=== PATIENT | female | born 1950 | race Caucasian/White ===

== ENCOUNTER → 2016-03-27 | Outpatient (CLI) | payer BC ==
[~2016-03-27] MED LIST: AMLO-114 PO; AMOX875T PO; ATRIN INH; BENZ100C7 PO; CHOL1000 PO; CIPR-255 PO; GLC/500 PO; Levalbuterol INH; MULT-506 PO; NRV5 PO; PANT40TA PO; POTA1080 PO; PRED10TA PO; PRT40 PO
--- NOTE | 2016-03-28 05:34 | PAP/PSG TECHNICIAN REPORT ---
[facility] Cissp Polysomnogram Report Study name: None Report date: 03/28/2016 Study date: 03/27/2016 Referring Physician: DR. JERRY Name: DONNA DUMONT Interpreting Physician: Roberto Her M.D. Date of : 1950 Cissp: MIRELLA Kwon. Sex: Female Age: 65 StudyType: PSG PAP Weight: 256 lbs Height: 65 years, Height 5' 4" Neck Circum:15.5inches BMI: 43.94 Medications: Fluticasone, Amlodipine Besylate 5mg, Atrovent HFA, Benzonatate 100mg Patient History Study started on room air with 4cwp cpap in room #6. 65 yr old female here tonight for a new titration study. She had a diagnostic psg done here on 01/31/16 that had an AHI of7.4, RDI of 7.7.Her ESS=11/24. Neck circ=15.5inches. Parameters Monitored NPSG: E1-M2, E2-M1, Fp1-M2, Fp2-M1, F3-M2, F4-M2, F4-M1, C3-M2, C4-M2, C4-M1, O1-M2, O2-M2, O2-M1, T3-M2, T4-M1, P3-M2, P4-M1, CHIN1, CHIN2, HR, EKG, Legs, PFLOW, SNOR, FLOW, CFLOW, Tidal Volume, THOR, ABDO, SpO2, PLTH, CPRESS, ETCO2 Wave, ETCO2, pH Sleep Architecture Sleep Stages Time at Lights Off 9:58:39 PM STAGES Time (min.) TST (%) Time at Lights On 5:29:39 AM Wake 95.0 -- Total Recording Time (TRT) 451.00 min. N1 14.5 4 Total Sleep Period (TSP) 407.0 min. N2 187.5 53 Total Sleep Time (TST) 356.0min. N3 84.5 24 Awake Time 95.0 min. REM 69.5 20 Wake after Sleep Onset 51.0 min. Sleep Efficiency (SE) 79 % Sleep Onset Latency (BONITA) 44.0 min. Number of Stage 1 Shifts None Awakenings 16 Stage Changes 63 Number of REM periods 3 REM 69.5 20 REM Latency 109.0 min. NREM 286.5 80 Body Position Analysis Supine Right Left Side Prone Vertical Total Sleep Time (min.) 238.2 46.0 138.8 184.76 0.0 0.0 Total Sleep Time (%) 48% 13% 39% 52 0% N/A% Total Sleep Time REM (min.) 26.0 0.0 43.5 None 0.0 0.0 Total Sleep Time NREM (min.) 145.2 46.0 95.3 None 0.0 0.0 Intermittent Wake (min.) 67.0 7.2 20.8 None 0.0 0.0 Total Sleep Period (%) 50% None None None None None Arousals Myoclonus (PLM) * Events Count Index Events Count Index Spontaneous 14 2 Events Awake (PLMW) 112 70.7 Respiratory 1 0.2 Events Asleep w/ Arousal (PLMA) 18 3.0 PLM 17 3 Events Asleep w/o Arousal (PLMS) 114 19.2 Snoring 2 0 Total Asleep 132 22.2 Total 34 6 Total 244 32 Respiratory Analysis * CA OA MA CH H RERA Total Count 0 0 0 0 2 0 2 Index 0.0 0.0 0.0 0 0.3 0 0.3 Mean Duration 0.0 0.0 0.0 0.00 32.1 0.0 32.1 Longest Duration 0.0 0.0 0.0 0.00 0.0 0.0 49.8 Respiratory Event Summary Total Supine ~Supine Right Left Prone REM NREM Apneas Count 0 0 0 0 0 N/A 0 0 Index 0.0 0 0 0.0 0.0 N/A 0 0 Hypopneas (4% Desat) Count 2 0 2 0 2 N/A 1 1 Index 0.3 0.0 1 0.0 0.9 N/A 0.9 0.2 Apneas & All Hypopneas Count 2 0 2 0 2 N/A 1 1 Index 0.3 0 1 0 1 N/A 0.9 0.2 Respiratory Events (Metal Riveter+All Hyp+RERA) Count 2 0 2 0 2 N/A 1 1 Index 0.3 0 1 0.0 0.9 N/A 0.9 0.2 Respiratory Related Arousal Count 1 0 1 0 1 N/A 0 1 Index 0.2 0 0 0 0 N/A 0 0 Snoring Analysis Supine Right Left Prone REM NREM Total Snore duration 0.4 min Snores count 3 1 2 N/A 0 6 6 Snore mean duration 4.5 Sec Snores index 1 1 1 N/A 0.0 1.3 1.0 TST with snoring (%) 0.1% Desaturation Event Summary: Minimum %SpO2 Event Count Mean/Min/Max Duration(sec.) Desaturation Index % Time In Bed > 90 5 24.5 / 7.5 / 41.3 1.4 47.1 86 - 90 3 17.8 / 6.3 / 32.0 0.8 52.8 81 - 85 0 N/A 0.0 0.1 76 - 80 0 N/A 0.0 0.0 71 - 75 0 N/A 0.0 0.0 66 - 70 0 N/A 0.0 0.0 61 - 65 0 N/A 0.0 0.0 56 - 60 0 N/A 0.0 0.0 51 - 55 0 N/A 0.0 0.0 < 50 0 N/A 0.0 0.0 Total REM NREM Awake <50% 0.0 min. 0.0 min. 0.0 min. 0.0 min. 51 - 60% 0.0 min. 0.0 min. 0.0 min. 0.0 min. 61 - 70% 0.0 min. 0.0 min. 0.0 min. 0.0 min. 71 - 80% 0.0 min. 0.0 min. 0.0 min. 0.0 min. 81 - 90% 237.4 min. 47.8 min. 181.2 min. 8.3 min. 91 - 100% 211.3 min. 21.7 min. 105.0 min. 84.6 min. Average 91 90 90 93 Minimum SpO2 85 85 85 85 Desaturation Event Index 0.9 0.9 0.2 3.2 # Desat. Events below 89% 3 1 0 2 Time(%) with Saturation below 89% 6.7 1.3 5.3 0.1 Time(min.) with Saturation below 89% 30.1 5.8 23.9 0.5 Time (mins) REM (mins) NREM (mins) % of TST SpO2 Below 90% 2 1 N1 36.3 SpO2 Below 88% 1 0 0 1 Heart Rate Analysis Min (bpm) Max (bpm) Average (bpm) Awake 39 214 70 NREM 53 96 65 REM 62 83 70 Overall 53 96 66 Supplemental O2 Values Minimum O2 level: None Value Start Time End Time Cissp Comments Mrs. Dumont slept in the right, left and supine positions. No cardiac arrhythmia noted. Some limb movements were noted. No bruxism noted. CPAP was initiated at +4 CMH2O which nearly eliminated all respiratory events and snoring. At 4:30 am she had been on Cpap of 4cwp for a total of 389minutes and her O2 saturations were under 89% for a total of 29.6minutes, therefore 1LPM of oxygen was added. An extra-small Quattro Air full face mask by [employer] was used during titration. She did not use the restroom during the night. She stated that she slept well. The final report will be interpreted and signed by a sleep physician. The completed physician report will then be placed in the patient medical record. Therapy Event: Therapy (cm H20) 4 Total Time at Pressure (min.) 451.0 TST at Pressure (min.) 356.0 # Periods 1 Sleep Onset (min.) 44.0 REM Onset (min.) 153.0 Sleep Efficiency % 78 Wakefulness (%) 21.1 Wakefulness (min.) 95.0 NREM 1 (%) 3.2 NREM 1 (min.) 14.5 NREM 2 (%) 41.6 NREM 2 (min.) 187.5 NREM 3 (%) 18.7 NREM 3 (min.) 84.5 REM (%) 15.4 REM (min.) 69.5 # Arousals 34 Arousal Index 5.7 # Snore 6 Snore Index 1.0 AHI 0.3 AHI Supine 0.0 AHI Non-Supine 0.6 NREM AHI 0.2 REM AHI 0.9 RDI 0.3 # Obstructive 0 # Central Ap 0 # Mixed 0 # Hypopneas 2 RERAS 0 Total Respiratory Events 2 Time Below SpO2 89.00% (min.) 29.6 Mean NREM SpO2 (%) 90 Mean REM SpO2 (%) 90 Mean Sleep SpO2 (%) 90 Min NREM SpO2 (%) 85 Min REM SpO2 (%) 85 Position Supine (min.) 171.2 Position Non-supine (min.) 184.8 LM Index Sleep 22.2 LM Index NREM 22.6 LM Index REM 20.7 Mean Heart Rate (bpm) 66 Min Heart Rate (bpm) 53
--- NOTE | 2016-03-29 12:05 | POLYSOMNOGRAPH REPORT ---
CLINICAL DATA: 65-year-old female with BMI of 43.[address] Muñoz and Dr. Pinto. The patient had a diagnostic sleep study done on 01/31/2016 which showed mild sleep apnea with an AHI of 7.4 and an RDI of 7.7. SLEEP ARCHITECTURE: Total sleep period was 407 minutes. Total sleep time was 356 minutes divided between 286.5 minutes of non-REM sleep and 69.5 minutes of REM sleep. Sleep onset latency was 44 minutes. REM latency was 109 minutes. Sleep efficiency was 79%. Awake after sleep onset was 51 minutes. Sleep consisted of stage N1 4%, N2 52%, N3 24%, and REM 20%. AROUSAL DATA: 34 arousals were recorded for an index of 6 per hour. PLM DATA: 132 limb movements during sleep were noted for an index of 22.2 per hour with arousal index of 3 per hour. RESPIRATORY DATA: The AHI was 0.3. There were 2 hypopneic episodes. The mean duration of hypopnea was 32.1 seconds. OXIMETRY DATA: Nocturnal hypoxemia was seen. Oxygen talat was 85% during REM. The mean saturation was 91%. Time below 88% was 29.6 minutes. EKG: Heart rates ranged from 52-96 beats per minute. No arrhythmias were noted. DENTAL DIRECTOR'S COMMENTS AND TREATMENT SUMMARY: The patient slept in the right, left, and supine positions. CPAP was started at 4 cm of water pressure, which eliminated almost all of her respiratory events. At 4:30 a.m., she had been on CPAP 4 cm of water pressure and Oxygen Sats were under 89% for total of 29.6 minutes. Therefore, 1 liter per minute of oxygen was added at that time. She used an extra small Quattro Air full facemask by [employer]. IMPRESSION: 1. Mild sleep corrected with CPAP at 5 cm of water pressure, extra small Quattro Air full facemask by [employer]. 2. Persistent oxygen desaturation in spite of adequate treatment with CPAP requiring oxygen 1 liter per minute. RECOMMENDATIONS: The patient should be started on CPAP 5 cm water pressure using the above noted face mask and oxygen at 1 liter per minute. Follow within 90 days to document efficacy and compliance is recommended. [facility]
== END | disposition home or self-care (01) ==
LOC: C.NEUR 21:00
PROVIDERS: ATTEND Internal Medicine Pulmonary Disease
DX: G47.30 Sleep apnea, unspecified (principal)

== ENCOUNTER 2016-06-11 16:30 | Emergency (ER) | payer BC, OTHER ==
[~2016-06-11] VITALS: Ht 162.6 cm; Wt 89.8 kg
[~2016-06-11 16:30] MED LIST changes: -AMLO-114 PO; -CHOL1000 PO; -CIPR-255 PO; -PANT40TA PO
[2016-06-11 16:33] VITALS: Ht 162.6 cm; Wt 89.8 kg
[2016-06-11] MEDS ORDERED: ONDANSETRON INJ 2 MG/ML 2 ML VIAL IV STA (16:47)
[2016-06-11] MEDS ORDERED: MoRPHine SULFATE 4 MG/ML 1 ML CARP\\VIAL IV STA (16:47)
[2016-06-11] MEDS ORDERED: AMLO-114 PO (16:55)
[2016-06-11] MEDS ORDERED: PANT40TA PO (16:59)
[2016-06-11] MEDS ORDERED: GLC/500 PO (17:04)
[2016-06-11] MEDS ORDERED: CHOL1000 PO (17:05)
[2016-06-11 17:09] LABS: BASO % 0.4 %; BASO ABS # 0.03 K/uL (0-0.2); COMPLETE YES; HEMATOCRIT 43.2 % (37-47); IG% 0.3 %; LYMPH ABS # 1.01 K/uL (1.2-3.4); MEAN CELL VOLUME 88.5 fL (80-100); MEAN CORPUSCULAR HEMOGLOBIN 30.7 pg (25-34); MEAN CORPUSCULAR HGB CONC 34.7 g/dl (32-36); MONO % 5.4 %; NEUT % 78.9 %; PLATELET COUNT 285 K/uL (130-400); RED BLOOD COUNT 4.88 M/uL (4.2-5.4); WHITE BLOOD COUNT 7.19 K/uL (4.8-10.8)
[2016-06-11 17:25] LABS: URINE APPEARANCE CLOUDY (CLEAR); URINE COLOR DK YELLOW; URINE EPITHELIAL CELL AUTO >30 /lpf (0-5); URINE NITRITE NEG (NEG); UROBILINOGEN NEG (NEG)
[2016-06-11 17:30] LABS: ALT/SGPT 28 U/L (12-78); BLOOD UREA NITROGEN 17 mg/dl (7-18); BUN/CREATININE RATIO 23.2 (10-20); CALCIUM 9.7 mg/dl (8.5-10.1); CARBON DIOXIDE 26 mmol/L (21-32); CHLORIDE 104 mmol/L (98-107); CREATININE 0.72 mg/dl (0.60-1.20); GLUCOSE 110 mg/dl (70-99); SODIUM 139 mmol/L (136-145)
[2016-06-11 17:32] LABS: ALKALINE PHOSPHATASE 142 U/L (45-117)
[2016-06-11 17:55] LABS: MANUAL MICROSCOPIC REQUIRED? NO; REVIEW REQ? YES; URINE BILIRUBIN NEG (NEG)
--- NOTE | 2016-06-11 18:32 | DIAGNOSTIC IMAGING REPORT ---
BILIARY ULTRASOUND CLINICAL HISTORY: Right upper quadrant abdominal pain COMPARISON STUDY: CT scan dated 12/19/2015 FINDINGS: The pancreas appears sonographically normal. There are multiple gallstones. There is no gallbladder wall thickening and no evidence of pericholecystic fluid. There is no ductal dilatation. The common bile duct measures 4 mm. There is no right-sided hydronephrosis. No hepatic masses are visualized. There is increased hepatic echogenicity consistent with hepatic steatosis IMPRESSION: 1. Cholelithiasis. No evidence of ductal dilatation. 2. Hepatic steatosis 3. Normal pancreas 4. No evidence of right sided hydronephrosis Electronically signed by: Naveen Christian M.D. 06/11/2016 6:30 PM Dictated Date/Time: 06/11/2016 6:28 PM
[2016-06-11] MEDS ORDERED: CIPROFLOXACIN 400MG / 200ML D5W IV STA (18:35)
[2016-06-11 18:59] VITALS: TEMP 36.4
[2016-06-11] MEDS ORDERED: CIPR-255 PO (20:54)
[2016-06-11 20:56] LABS: POTASSIUM 4.1 mmol/L (3.5-5.1)
[2016-06-11 21:13] VITALS: BP 145/69; PULSE 78; O2SAT 96
--- NOTE | 2016-06-11 22:59 | EMERGENCY ROOM VISIT NOTE ---
History Report prepared by Jose Eduardo: Bel Kelly Under the Supervision of: Dr. Juan Pablo Montes M.D. First contact with patient: 16:35 Chief Complaint: KIDNEY STONE Stated Complaint: RIGHT SIDE KIDNEY PAIN History of Present Illness The patient is a 65 year old female who presents to the Emergency Room with complaints of worsening RUQ abdominal pain since this morning. The patient states that her pain has gradually worsened throughout the day. She notes decreased urinary output and burning pain with urination, as well as some diarrhea. She rates her current pain as a 6/10 in severity. The patient has a history of kidney stones and states that these symptoms feel similar to symptoms she experienced with her previous stones. She notes that she still has her gallbladder and has a history of gallstones. The patient denies hematuria, fever, and vomiting. Source of History: patient Onset: this morning Position: abdomen (RUQ) Symptom Intensity: 6/10 Timing: worsening Modifying Factors (Worsening): other (time) Associated Symptoms: + diarrhea, + urinary symptoms (decreased output and dysuria), No fevers, No vomiting Note: Pt denies hematuria. Review of Systems See HPI for pertinent positives & negatives. A total of 10 systems reviewed and were otherwise negative. Past Medical & Surgical Medical Problems: (1) Kidney stones (2) Respiratory failure (3) Sprain of knee Family History Diabetes mellitus Social History Smoking Status: Never Smoker Drug Use: none Marital Status: Housing Status: lives with family Occupation Status: employed Current/Historical Medications Scheduled Amlodipine (Norvasc), 10 MG PO DAILY Cholecalciferol (Vitamin D3), 1,000 UNITS PO DAILY Ciprofloxacin Hcl (Cipro), 500 MG PO BID Metformin Hcl (Glucophage), 500 MG PO BID Multivitamin (Multivitamin), 1 TAB PO QAM Pantoprazole (Protonix), 40 MG PO BID Potassium Citrate (Alkalinizer (Potassium Citrate ER), 2 TABS PO DAILY Allergies Coded Allergies: Adhesives (Verified Allergy, Unknown, bandaids-redness rash, 06/11/16) Physical Exam Vital Signs Date Time Temp Pulse Resp B/P Pulse Ox O2 Delivery O2 Flow Rate FiO2 06/11/16 21:13 78 18 145/69 96 Room Air 06/11/16 18:59 36.4 65 12 145/59 98 Room Air 06/11/16 16:33 36.4 71 20 148/78 98 Room Air Physical Exam Constitutional: Vital signs reviewed. Eyes: Pupils are equal round reactive to light. Conjunctiva are noninjected. ENT: Pharynx is clear without erythema or exudate. Mucous membranes are moist. Neck supple without meningeal signs. Respiratory: Clear to auscultation bilaterally. Breath sounds are equal bilaterally. Cardiovascular: Regular rate and rhythm. No rubs or gallops. GI: Soft, nondistended. RUQ tenderness, no Eng's sign. Bowel sounds are present. Musculoskeletal: No peripheral edema. No lower extremity tenderness. No CVA tenderness. Integumentary: No cyanosis. Neurological: The patient is awake and alert. No focal deficits. Psychiatric: Normal affect. Medical Decision & Procedures ER Provider Diagnostic Interpretation: Radiology results as stated below per my review and the radiologist's interpretation: BILIARY ULTRASOUND CLINICAL HISTORY: Right upper quadrant abdominal pain COMPARISON STUDY: CT scan dated 12/19/2015 FINDINGS: The pancreas appears sonographically normal. There are multiple gallstones. There is no gallbladder wall thickening and no evidence of pericholecystic fluid. There is no ductal dilatation. The common bile duct measures 4 mm. There is no right-sided hydronephrosis. No hepatic masses are visualized. There is increased hepatic echogenicity consistent with hepatic steatosis IMPRESSION: 1. Cholelithiasis. No evidence of ductal dilatation. 2. Hepatic steatosis 3. Normal pancreas 4. No evidence of right sided hydronephrosis Electronically signed by: Naveen Christian M.D. 06/11/2016 6:30 PM Dictated Date/Time: 06/11/2016 6:28 PM Laboratory Results 06/11/16 17:00 Red Blood Count 4.88, Mean Corpuscular Volume 88.5, Mean Corpuscular Hemoglobin 30.7, Mean Corpuscular Hemoglobin Concent 34.7, Mean Platelet Volume 10.0, Neutrophils (%) (Auto) 78.9, Lymphocytes (%) (Auto) 14.0, Monocytes (%) (Auto) 5.4, Eosinophils (%) (Auto) 1.0, Basophils (%) (Auto) 0.4, Neutrophils # (Auto) 5.67, Lymphocytes # (Auto) 1.01, Monocytes # (Auto) 0.39, Eosinophils # (Auto) 0.07, Basophils # (Auto) 0.03 06/11/16 17:00 06/11/16 18:53 Test 06/11/16 15:00 06/11/16 17:00 06/11/16 18:53 Urine Color DK YELLOW Urine Appearance CLOUDY (CLEAR) Urine pH 5.0 (4.5-7.5) Urine Specific [place] 1.020 (1.000-1.030) Urine Protein NEG (NEG) Urine Glucose (UA) NEG (NEG) Urine Ketones 1+ (NEG) Urine Occult Blood 3+ (NEG) Urine Nitrite NEG (NEG) Urine Bilirubin NEG (NEG) Urine Urobilinogen NEG (NEG) Urine Leukocyte Esterase MODERATE (NEG) Urine WBC (Auto) >30 /hpf (0-5) Urine RBC (Auto) >30 /hpf (0-4) Urine Hyaline Casts (Auto) 1-5 /lpf (0-5) Urine Epithelial Cells (Auto) >30 /lpf (0-5) Urine Bacteria (Auto) NEG (NEG) Urine Crystals CALCIUM OXALATE (NONE Urine Pathogenic Casts /lpf (0) Urine Yeast (Auto) PRESENT (NONE PRSENT) White Blood Count 7.19 K/uL (4.8-10.8) Red Blood Count 4.88 M/uL (4.2-5.4) Hemoglobin 15.0 g/dL (12.0-16.0) Hematocrit 43.2 % (37-47) Mean Corpuscular Volume 88.5 fL (80-100) Mean Corpuscular Hemoglobin 30.7 pg (25-34) Mean Corpuscular Hemoglobin Concent 34.7 g/dl (32-36) Platelet Count 285 K/uL (130-400) Mean Platelet Volume 10.0 fL (7.4-10.4) Neutrophils (%) (Auto) 78.9 % Lymphocytes (%) (Auto) 14.0 % Monocytes (%) (Auto) 5.4 % Eosinophils (%) (Auto) 1.0 % Basophils (%) (Auto) 0.4 % Neutrophils # (Auto) 5.67 K/uL (1.4-6.5) Lymphocytes # (Auto) 1.01 K/uL (1.2-3.4) Monocytes # (Auto) 0.39 K/uL (0.11-0.59) Eosinophils # (Auto) 0.07 K/uL (0-0.5) Basophils # (Auto) 0.03 K/uL (0-0.2) RDW Standard Deviation 40.2 fL (36.4-46.3) RDW Coefficient of Variation 12.6 % (11.5-14.5) Immature Granulocyte % (Auto) 0.3 % Immature Granulocyte # (Auto) 0.02 K/uL (0.00-0.02) Anion Gap 9.0 mmol/L (3-11) Est Creatinine Clear Calc Drug Dose 85.7 ml/min Estimated GFR () 102.6 Estimated GFR (Non- 88.5 BUN/Creatinine Ratio 23.2 (10-20) Calcium Level 9.7 mg/dl (8.5-10.1) Total Bilirubin 1.4 mg/dl (0.2-1) Alanine Aminotransferase (ALT/SGPT) 28 U/L (12-78) Alkaline Phosphatase 142 U/L (45-117) Total Protein 8.3 gm/dl (6.4-8.2) Albumin 4.3 gm/dl (3.4-5.0) Lipase 148 U/L (73-393) Direct Bilirubin 0.3 mg/dl (0-0.2) Aspartate Amino Transf (AST/SGOT) 25 U/L (15-37) Laboratory results as reviewed by me. Medications Administered Medications (Trade) Dose Ordered Sig/[place] Route Start Time Stop Time Status Last Admin Dose Admin Ciprofloxacin/ Dextrose (Cipro / D5w) 400 mg NOW STAT IV 06/11/16 18:35 06/11/16 18:36 DC 06/11/16 19:07 400 MG ECG Indication: abdominal pain Rate (beats per minute): 58 Rhythm: sinus bradycardia Findings: no acute ischemic change, no ectopy ED Course 163: The patient was evaluated in room C8. A complete history and physical exam was performed. 164: Zofran 4 mg IV - pt refused, Morphine sulfate 4 mg IV - pt refused. 1832: I checked on the patient, but she was still at ultrasound 183: Cipro/D5w 400 mg IV 1902: I updated the patient and she is feeling much better. I discussed her test results with her. 2049: The patient has no complaints at this time. She has finished receiving her IV antibiotics. She declined pain medication for home. We are just waiting for redraw labs. 2100: I reassessed the patient at this time. She is feeling better and resting comfortably. I discussed the results and treatment plan with the patient. I answered all pertaining questions that she had. She expressed understanding and verbalized agreement. The patient will be discharged home. Medical Decision This is a 65-year-old female who presents with right upper quadrant abdominal pain. Differential diagnosis includes cholecystitis, biliary colic, renal colic , pancreatitis, inferior wall NC, pyelonephritis, UTI. I did perform a limited focused review of portions of the patient's old chart on the electronic medical record. The patient had a CT in November of the abdomen/pelvis which showed a 5mm UVJ stone on the left side and bilateral kidney stones. I did evaluate the patient as noted above. The patient is presenting with right upper quadrant abdominal pain. She does a history of kidney stones and gallstones. She is tender in the right upper quadrant but has no Eng sign. IV access was established. I did treat the patient with IV morphine and Zofran. I did order and personally review the patient's UA as described above. She does have signs of infection. There are epithelial cells and yeast which suggests some degree of contamination. A urine culture was sent. I did order and review the patient's blood work as noted in the electronic medical record. Her white blood cell count is not elevated. I did order an ultrasound of the right upper quadrant. I did review the images myself as well as the radiology report as described above. There is no evidence of cholecystitis. She has no hydronephrosis to suggest an obstructing ureteral stone. I did treat her with Cipro IV. I did reassess the patient. She is feeling much better at this time. I did discuss the test results with her in detail. She was advised follow closely with her doctor within 48 hours. She was discharged with a prescription for Cipro. Impression Primary Impression: Pyelonephritis Additional Impression: Cholelithiasis Scribe Attestation The scribe's documentation has been prepared under my direct and personally reviewed by me in its entirety. I confirm that the note above accurately reflects all work, treatment, procedures, and medical decision making performed by me. Departure Information Dispostion Home / Self-Care Prescriptions Ciprofloxacin Hcl (CIPRO) 500 Mg Tab 500 MG PO BID, #20 TAB Prov: Juan Pablo Montes M.D. 06/11/16 Referrals Villa Pinto M.D. (PCP) Forms HOME CARE DOCUMENTATION FORM, IMPORTANT VISIT INFORMATION Patient Instructions My [facility], Pyelonephritis Dc Additional Instructions You have been examined and treated today on an emergency basis only. This is not a substitute for, or an effort to provide, complete comprehensive medical care. It is impossible to recognize and treat all injuries or illnesses in a single emergency department visit. It is therefore important that you follow up closely with your physician within 48 hours. Call as soon as possible for an appointment. Return for worsening symptoms or if you develop fever, vomiting, or any other concerning symptoms. Problem Qualifiers Additional Impression: Cholelithiasis Cholelithiasis location: gallbladder Cholecystitis presence: without cholecystitis Biliary obstruction: without biliary obstruction Qualified Codes: K80.20 - Calculus of gallbladder without cholecystitis without obstruction
== END 2016-06-11 21:14 | disposition home or self-care (01) ==
LOC: C.EDB 16:32 → C.EDC 21:14
DX: N12 Tubulo-interstitial nephritis, not specified as acute or chronic (principal); K80.20 Calculus of gallbladder without cholecystitis without obstruction; Z87.442 Personal history of urinary calculi; Z79.4 Long term (current) use of insulin; Z79.899 Other long term (current) drug therapy; Z91.09 Other allergy status, other than to drugs and biological substances; Z83.3 Family history of diabetes mellitus

== ENCOUNTER → 2016-08-06 | Outpatient (CLI) | payer BC ==
[~2016-08-06] MED LIST changes: +AMLO-114 PO; -AMOX875T PO; -ATRIN INH; -BENZ100C7 PO; +CHOL1000 PO; +CIPR-255 PO; -Levalbuterol INH; -NRV5 PO; +PANT40TA PO; -PRED10TA PO; -PRT40 PO
--- NOTE | 2016-08-06 10:57 | DIAGNOSTIC IMAGING REPORT ---
KUB HISTORY: N20.0 [id number] COMPARISON: IVP 02/06/2016. FINDINGS: The bowel gas pattern is unremarkable. There are no dilated loops of small bowel to suggest an obstruction. There is small cluster of stones within the lower pole of the left kidney. No right renal calculi. No ureteral calculi. No pneumoperitoneum or pneumatosis. IMPRESSION: Left-sided nephrolithiasis. Electronically signed by: Hemant Davis M.D. 08/06/2016 10:56 AM Dictated Date/Time: 08/06/2016 10:55 AM
== END | disposition home or self-care (01) ==
LOC: C.RAD 10:35
PROVIDERS: ATTEND Urology
DX: N20.0 Calculus of kidney (principal)

== ENCOUNTER → 2017-02-01 | Outpatient (CLI) | payer BC ==
--- NOTE | 2017-02-04 07:49 | MAMMOGRAPHY REPORT ---
BILATERAL DIGITAL SCREENING MAMMOGRAM TOMOSYNTHESIS WITH CAD: 02/01/2017 CLINICAL HISTORY: Asymptomatic. Personal history of breast cancer. TECHNIQUE: Breast tomosynthesis in addition to standard 2D mammography was performed. Current study was also evaluated with a Computer Aided Detection (CAD) system. COMPARISON: Comparison is made to exams dated: 02/23/2016 mammogram, 02/23/2016 stereotactic biopsy, 01/31/2016 mammogram, 02/09/2015 ultrasound, 01/27/2015 mammogram, and 10/06/2012 mammogram - [facility]. BREAST COMPOSITION: The tissue of both breasts is heterogeneously dense, which may obscure small mas ses. FINDINGS: No suspicious masses, calcifications, or areas of architectural distortion are noted in ei ther breast. There has been no significant interval change compared to prior exams. There are stable post surgical changes in the right anterior breast. Biopsy marker clips are again noted within the left breast. Bilateral benign-appearing calcifications are not significantly changed, including a sm all cluster of calcifications within the left lower outer quadrant middle depth which is stable charlotte red to the January 2016 and January 2015 exams. IMPRESSION: ACR BI-RADS CATEGORY 2: BENIGN There is no mammographic evidence of malignancy. A 1 year screening mammogram is recommended. The pa tient will receive written notification of the results. Approximately 10% of breast cancers are not detected with mammography. A negative mammographic report should not delay biopsy if a clinically suggestive mass is present. Jackelyn Lance M.D. ah/:02/01/2017 14:48:52 Grinder Operator Surface Tool: Shayy HASSAN(Davy)([place]), [facility] letter sent: Normal 1/2 BI-RADS Code: ACR BI-RADS Category 2: Benign
== END | disposition home or self-care (01) ==
LOC: C.MAMM 08:38
PROVIDERS: ATTEND Internal Medicine
DX: Z12.31 Encounter for screening mammogram for malignant neoplasm of breast (principal); Z85.3 Personal history of malignant neoplasm of breast

== ENCOUNTER → 2017-03-04 | Outpatient (CLI) | payer OTHER ==
--- NOTE | 2017-03-04 10:28 | DIAGNOSTIC IMAGING REPORT ---
KUB CLINICAL HISTORY: N20.0 [id number] COMPARISON STUDY: 08/06/2016 FINDINGS: The renal shadows are partially obscured overlying bowel gas and fecal material. There is a small cluster of calculi projected over the left kidney is a 1 cm]. There are several small opacities project over the right kidney. Small calculi are suspected although the findings could be secondary to overlying enteric contents.. IMPRESSION: Suspected bilateral nephrolithiasis. Electronically signed by: Naveen Chirstian M.D. 03/04/2017 10:27 AM Dictated Date/Time: 03/04/2017 10:25 AM
== END | disposition home or self-care (01) ==
LOC: C.RAD 10:09
PROVIDERS: ATTEND Urology
DX: N20.0 Calculus of kidney (principal)

== ENCOUNTER → 2017-03-06 | Outpatient (CLI) | payer OTHER ==
[~2017-03-06] MED LIST changes: +METR0.75 EXT; +MULT-920 PO
== END | disposition home or self-care (01) ==
LOC: C.LABSPEC 11:16
PROVIDERS: ATTEND Urology
DX: N20.0 Calculus of kidney (principal); N39.0 Urinary tract infection, site not specified

== ENCOUNTER → 2017-03-21 | Outpatient (CLI) | payer OTHER ==
[~2017-03-21] MED LIST changes: +CEPH500C PO; -CIPR-255 PO; -GLC/500 PO; +OXYC-57 PO; +PHEN-775 PO
--- NOTE | 2017-03-21 18:16 | DIAGNOSTIC IMAGING REPORT ---
KUB HISTORY: Left-sided nephrolithiasis. N20.0 NephrolithiasisTO BE DONE EITHER THE NIGHT BEFORE OR MORNI COMPARISON: KUB 03/04/2017. FINDINGS: The bowel gas pattern is non-obstructive. Mild to moderate stool volume is seen throughout the colon, notably within the distribution of the hepatic flexure and descending colon There is no organomegaly. 9 mm calculus projects over the region of the inferior pole left kidney. 5 mm calculus projects over the region of the interpolar right kidney. No definite calculi seen along the course of the ureters. Bilateral renal shadows are partially obscured by overlying bowel gas. Cholelithiasis. No pneumoperitoneum or pneumatosis. No fracture. IMPRESSION: 1. Bilateral nephrolithiasis without definite ureteral calculi identified. 2. Cholelithiasis. Electronically signed by: Jonathon Ruiz M.D. 03/21/2017 6:14 PM Dictated Date/Time: 03/21/2017 6:12 PM
== END | disposition home or self-care (01) ==
LOC: C.RAD 17:30
PROVIDERS: ATTEND Urology
DX: N20.0 Calculus of kidney (principal); K80.20 Calculus of gallbladder without cholecystitis without obstruction

== ENCOUNTER → 2017-03-22 | Day surgery (SDC) | payer OTHER ==
--- NOTE | 2017-03-07 11:31 | DIAGNOSTIC IMAGING REPORT ---
CHEST 2 VIEWS ROUTINE CLINICAL HISTORY: N20.0 [id number] COMPARISON STUDY: November 20, 2015 FINDINGS: The cardiac and mediastinal contours are normal. There is no evidence of focal pulmonary consolidation. There is no evidence of failure. No pleural effusions are visualized.[ IMPRESSION: No active disease in the chest. Electronically signed by: Naveen Christian M.D. 03/07/2017 11:30 AM Dictated Date/Time: 03/07/2017 11:30 AM
[2017-03-07 12:19] LABS: BASO % 0.5 %; BASO ABS # 0.02 K/uL (0-0.2); EOS % 1.8 %; EOS ABS # 0.07 K/uL (0-0.5); HEMATOCRIT 40.7 % (37-47); HEMOGLOBIN 13.8 g/dL (12.0-16.0); LYMPH % 36.1 %; LYMPH ABS # 1.39 K/uL (1.2-3.4); MEAN CELL VOLUME 90.6 fL (80-100); MEAN CORPUSCULAR HEMOGLOBIN 30.7 pg (25-34); MEAN CORPUSCULAR HGB CONC 33.9 g/dl (32-36); MEAN PLATELET VOLUME 10.3 fL (7.4-10.4); MONO ABS # 0.27 K/uL (0.11-0.59); NEUT % 54.6 %; PLATELET COUNT 229 K/uL (130-400); RED CELL DISTRIBUTION WIDTH CV 12.5 % (11.5-14.5); RED CELL DISTRIBUTION WIDTH SD 41.1 fL (36.4-46.3); WHITE BLOOD COUNT 3.85 K/uL (4.8-10.8)
[2017-03-07 12:56] LABS: BLOOD UREA NITROGEN 18 mg/dl (7-18); CARBON DIOXIDE 30 mmol/L (21-32); CREATININE 0.64 mg/dl (0.60-1.20); POTASSIUM 4.3 mmol/L (3.5-5.1); SODIUM 137 mmol/L (136-145)
[2017-03-11 08:35] VITALS: Ht 162.6 cm; Wt 81.4 kg
[~2017-03-22] VITALS: Ht 162.6 cm; Wt 81.4 kg
[~2017-03-22] MED LIST changes: +ATROPINE SULFATE 0.1 MG/ML 5ML SYR IV PRN; +CEFAZOLIN 2000MG IV PUSH 10 ML IV SCH; +DEXAMETHASONE SOD INJ 4 MG/ML VIAL IV PRN; +DEXAMETHASONE SOD INJ 4 MG/ML VIAL ONE; +EpHEDrine SULFATE INJ 50 MG/ML AMP IV PRN; +EpHEDrine SULFATE INJ 50 MG/ML AMP ONE; +FENTANYL CITRATE INJ 50 MCG/1 ML 2 ML VIAL IV PRN; +FENTANYL CITRATE INJ 50 MCG/1 ML 2 ML VIAL ONE; +KETOROLAC TROMETHAMINE 30 MG/ML VIAL IV. PRN; +KETOROLAC TROMETHAMINE 30 MG/ML VIAL ONE; +LABETALOL HCL IV 5 MG/ML 20ML IV PRN; +LACTATED RINGER'S 1000ML 1,000 ML IV SCH; +LIDOCAINE HCL 2% 2 ML VIAL (20MG/ML) ONE; +METOCLOPRAMIDE HCL INJ 5 MG/ML 2 ML VIAL IV PRN; +MIDAZOLAM HCL 1 MG/ML 2ML VIAL ONE; +MoRPHine SULFATE 10 MG/ML CARP/VIAL IV PRN; +ONDANSETRON INJ 2 MG/ML 2 ML VIAL IV PRN; +ONDANSETRON INJ 2 MG/ML 2 ML VIAL ONE; +OXYCODONE/ACETAMINOPHEN 7.5-325 TAB PO PRN; +PHENYLEPHRINE 100MCG/ML 5ML SYR IV PRN; +PROPOFOL IV EMULSION 10 MG/ML 20 ML VIAL IV ONE; +SODIUM CHLORIDE 0.9% INJ 10 ML VIAL ONE
--- NOTE | 2017-03-22 08:14 | History & Physical Bridge Note ---
H&P Re-Evaluation Bridge Note: I have examined the patient, reviewed the History & Physical and in the interval since the performance of the History & Physical I have noted the following changes of clinical significance: No changes noted
--- NOTE | 2017-03-22 08:17 | Discharge Instructions ---
Discharge Instructions Date of Service Mar 22, 2017. Admission Reason for Admission: Stones;Nephrolithiasis N20.1 Discharge Discharge Diagnosis / Problem: Stone Discharge Goals Goal(s): Decrease discomfort, Improve function Activity Recommendations Activity Limitations: resume your previous activity Lifting Limitations: gradually increase as tolerated Exercise/Sports Limitations: gradually increase as tolerated Shower/Bathe: no limitations . Instructions / Follow-Up Instructions / Follow-Up May have flank pain or bruising. Call if any fevers or chills. May have blood in urine or sediment Current Hospital Diet Patient's current hospital diet: Discharge Diet Recommended Diet: Regular Diet Procedures Procedures Performed: L ESWL Pending Studies Studies pending at discharge: no Medical Emergencies . Who to Call and When: Medical Emergencies: If at any time you feel your situation is an emergency, please call 911 immediately. . Non-Emergent Contact Non-Emergency issues call your: Primary Care Provider, Urologist Call Non-Emergent contact if: you have a fever, temperature is above 101, temperature is above 101.5, your pain is not controlled, your pain is worsening . . "Provider Documentation" section prepared by Buddy Mackenzie,. . VTE Core Measure Inpt VTE Proph given/why not?: SCD's
--- NOTE | 2017-03-22 09:14 | [facility] Operative Report ---
Operative Report Operative Date Mar 22, 2017. Pre-Operative Diagnosis Left Stone Post-Operative Diagnosis L Stone Procedure(s) Performed L ESWL Surgeon Gurdeep [facility] Technical Specialist Surgeon(s) None Estimated Blood Loss None Findings Left stone visable on imaging. Treated with ESWL Specimens None Drains None Anesthesia General Complication(s) None Disposition Recovery Room / PACU Indications Stone with considerable bother. Risks and benefits discussed at length. Description of Procedure Patient was consented and brought back to the operating room. Patient was placed under anesthesia in the supine position. Patient was prepped and draped in the regular sterile fashion. A time out was completed. With the time out completed, The patient was assessed with fluoroscopy. The stone was identified and position was triangulated. At this point, the shock waves commenced. The stone was monitored throughout the process with fluoroscopy to assess progression and maintain position. The stone was pulverized with 2500 shocks at a maximum voltage of 5 with a total fluoroscopic time of 1:31. With the stone treated, the procedure ended. The patient was cleaned, aroused from anesthesia, and transferred to the pacu in stable condition having tolerated the procedure well with no complications. I was present and participated in all aspects of the procedure. The patient will be monitored in the PACU until transferred. I attest to the content of the Intraoperative Record and any orders documented therein. Any exceptions are noted below.
[2017-03-22 09:34] VITALS: TEMP 36.8
[2017-03-22 10:01] VITALS: BP 125/65; PULSE 60; O2SAT 99
--- NOTE | 2017-03-22 10:05 | Anesthesia Progress Nt - [facility] ---
Anesthesia Post Op Note Date & Time Mar 22, 2017 at 10:05 Vital Signs Pain Intensity: 0 Vital Signs Past 12 Hours Date Time Temp Pulse Resp B/P (MAP) Pulse Ox O2 Delivery O2 Flow Rate FiO2 03/22/17 10:01 60 16 125/65 (85) 99 Room Air 03/22/17 09:34 36.8 62 16 122/61 (81) 96 Room Air 03/22/17 09:31 135/63 03/22/17 09:30 36.8 65 12 135/63 97 Room Air 03/22/17 09:29 60 12 03/22/17 09:29 61 12 98 03/22/17 09:28 69 18 03/22/17 09:28 69 18 100 03/22/17 09:26 143/64 03/22/17 09:23 69 13 03/22/17 09:23 75 13 100 03/22/17 09:21 137/61 03/22/17 09:18 63 9 100 03/22/17 09:18 60 9 03/22/17 09:16 122/61 03/22/17 09:13 57 14 100 03/22/17 09:13 57 14 03/22/17 09:12 54 12 03/22/17 09:12 53 12 100 03/22/17 09:11 137/61 03/22/17 09:07 64 17 100 03/22/17 09:07 64 17 03/22/17 09:06 139/70 03/22/17 09:02 36.9 69 12 148/72 96 Diffusion Mask 6 03/22/17 09:02 148/72 03/22/17 06:40 36.6 57 16 120/76 (91) 97 Room Air Notes Mental Status: alert / awake / arousable, participated in evaluation Pt Amnestic to Procedure: Yes Nausea / Vomiting: adequately controlled Pain: adequately controlled Airway Patency, RR, SpO2: stable & adequate BP & HR: stable & adequate Hydration State: stable & adequate Anesthetic Complications: no major complications apparent
== END | disposition home or self-care (01) ==
LOC: X.SURG 06:40
PROVIDERS: ATTEND Urology
DX: N20.0 Calculus of kidney (principal); G47.33 Obstructive sleep apnea (adult) (pediatric); M19.90 Unspecified osteoarthritis, unspecified site; E78.5 Hyperlipidemia, unspecified; K21.9 Gastro-esophageal reflux disease without esophagitis; E78.00 Pure hypercholesterolemia, unspecified; E66.9 Obesity, unspecified; J39.8 Other specified diseases of upper respiratory tract; I10 Essential (primary) hypertension; Z87.442 Personal history of urinary calculi; Z85.3 Personal history of malignant neoplasm of breast; Z85.828 Personal history of other malignant neoplasm of skin; Z83.3 Family history of diabetes mellitus; Z82.49 Family history of ischemic heart disease and other diseases of the circulatory system; Z99.89 Dependence on other enabling machines and devices

== ENCOUNTER → 2017-03-25 | Outpatient (CLI) | payer OTHER ==
[~2017-03-25] MED LIST changes: -ATROPINE SULFATE 0.1 MG/ML 5ML SYR IV PRN; -CEFAZOLIN 2000MG IV PUSH 10 ML IV SCH; -DEXAMETHASONE SOD INJ 4 MG/ML VIAL IV PRN; -DEXAMETHASONE SOD INJ 4 MG/ML VIAL ONE; -EpHEDrine SULFATE INJ 50 MG/ML AMP IV PRN; -EpHEDrine SULFATE INJ 50 MG/ML AMP ONE; -FENTANYL CITRATE INJ 50 MCG/1 ML 2 ML VIAL IV PRN; -FENTANYL CITRATE INJ 50 MCG/1 ML 2 ML VIAL ONE; -KETOROLAC TROMETHAMINE 30 MG/ML VIAL IV. PRN; -KETOROLAC TROMETHAMINE 30 MG/ML VIAL ONE; -LABETALOL HCL IV 5 MG/ML 20ML IV PRN; -LACTATED RINGER'S 1000ML 1,000 ML IV SCH; -LIDOCAINE HCL 2% 2 ML VIAL (20MG/ML) ONE; -METOCLOPRAMIDE HCL INJ 5 MG/ML 2 ML VIAL IV PRN; -MIDAZOLAM HCL 1 MG/ML 2ML VIAL ONE; -MoRPHine SULFATE 10 MG/ML CARP/VIAL IV PRN; -ONDANSETRON INJ 2 MG/ML 2 ML VIAL IV PRN; -ONDANSETRON INJ 2 MG/ML 2 ML VIAL ONE; -OXYCODONE/ACETAMINOPHEN 7.5-325 TAB PO PRN; -PHENYLEPHRINE 100MCG/ML 5ML SYR IV PRN; -PROPOFOL IV EMULSION 10 MG/ML 20 ML VIAL IV ONE; -SODIUM CHLORIDE 0.9% INJ 10 ML VIAL ONE
== END | disposition home or self-care (01) ==
LOC: C.LAB1850 08:58
PROVIDERS: ATTEND Physician Assistant Medical
DX: N20.0 Calculus of kidney (principal); E78.5 Hyperlipidemia, unspecified

== ENCOUNTER → 2017-04-02 | Outpatient (CLI) | payer OTHER ==
--- NOTE | 2017-04-02 12:54 | DIAGNOSTIC IMAGING REPORT ---
KUB CLINICAL HISTORY: N20.0 nephrolithiasis COMPARISON STUDY: 03/21/2017 FINDINGS: The kidneys are largely obscured by overlying bowel gas and fecal material. There are clustered granular calcifications projected over the lower pole the left kidney measuring 2 cm in aggregate. These likely represent a fragmented calculus. There is fecal retention. There are right upper quadrant calcifications consistent with cholelithiasis No calcifications along the course of either ureter are visualized IMPRESSION: 1. Bilateral nephrolithiasis 2. Cholelithiasis 3. Fecal retention Electronically signed by: Naveen Christian M.D. 04/02/2017 12:52 PM Dictated Date/Time: 04/02/2017 12:50 PM
== END | disposition home or self-care (01) ==
LOC: C.RAD 12:27
PROVIDERS: ATTEND Urology
DX: N20.0 Calculus of kidney (principal); K80.20 Calculus of gallbladder without cholecystitis without obstruction; K59.00 Constipation, unspecified

== ENCOUNTER 2023-06-17 06:52 | Inpatient (IN) ==
--- NOTE | 2023-06-11 12:12 | Anesthesiology Consultation ---
Date of Service June 11, 2023 Assessment & Plan (1) Encounter for pre-operative examination: Chart Review Chart Review: Acceptable Risk for Surgery and Patient NOT seen in Pre Admission Testing - Check BSG AM DOS -Infectious Disease screening: Per PAT nursing assessment on 06/11/23. No known infectious disease contacts in past 10 days or current infectious disease symptoms. No recent travel outside the country. Left cysto, laser stone removal 05/10/23= Done under [facility] with Grade 2 view with MAC #3. ETT #7. DL x 1, atraumatic, pre-existing chip to - tooth unchanged ( Patient was done under [facility] with ETT give risk for aspiration) History Surgery Operation Date: 06/17/23 09:55 Proposed Procedures p Laparoscopic Cholecystectomy - Osei Cruz MD Height/Weight Height: 5 ft 4 in Weight: 113.398 kg Allergies Allergy/AdvReac Type Severity Reaction Status Date / Time adhesive Allergy Unknown bandaids-redness Verified 06/11/23 11:03 / rash Cipro Allergy Unknown RASH Verified 03/22/17 06:46 ciprofloxacin Allergy Unknown RASH Verified 06/11/23 11:03 minocycline Allergy Unknown RASH Verified 06/11/23 11:03 Medications Home Medications Medication Instructions Recorded Confirmed Last Taken cholecalciferol (vitamin D3) 25 1,000 units PO QAM 09/29/19 06/11/23 10/05/21 mcg (1,000 unit) capsule nystatin 100,000 unit/gram topical 1 appln topical UD PRN Rash 09/29/19 06/11/23 Unknown cream CPAP Supplies #1 ea 11/04/19 05/30/23 Unknown cetirizine 10 mg tablet (Allergy 10 mg PO QAM 11/10/20 06/11/23 10/05/21 Relief (cetirizine)) amlodipine 10 mg tablet 10 mg PO QAM #90 tabs 03/07/21 06/11/23 05/10/23 06:00 rosuvastatin 5 mg tablet 5 mg PO QAM #90 tabs 05/15/21 06/11/23 10/06/21 06:15 peg 400-propylene glycol (PF) 0.4 1 drp ophthalmic (eye) QAM 09/28/21 06/11/23 10/05/21 %-0.3 % eye drops in a dropperette (Systane (PF)) glimepiride 2 mg tablet 2 mg PO QAM #90 tabs 12/05/21 06/11/23 Unknown pantoprazole 40 mg tablet,delayed 40 mg PO QAM #90 tabs 12/05/22 06/11/23 Unknown release empagliflozin 25 mg tablet 25 mg PO QAM 01/30/23 06/11/23 Unknown (Jardiance) lisinopril 10 mg tablet 10 mg PO QAM 04/10/23 06/11/23 Unknown hydrocodone 5 mg-acetaminophen 325 1 tab PO Q6H PRN pain #10 tabs 05/10/23 06/11/23 Unknown mg tablet Past Medical History Medical History (Updated 06/11/23 @ 12:09 by Linda Melgar PA-C) Cancer - HX right breast (late ) s/p EBRT - Left breast cancer dx June or July 2022 - sx intervention x 2 & radiation: finished radiation Nov 2022. 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 ETT #7. DL x 1 atraumatic) Kidney stones 05/10/23- s/p laser litho Migraine hx Morbid obesity Restless legs HX Skin cancer hx Sleep apnea CPAP daily use. Past Family History Family History Sister Family history of diabetes mellitus Aunt Breast cancer Father Myocardial infarction Mother , Passed Age 75 Diabetes Heart disease Pancreatic cancer, Onset Age: 75 Brother No problems noted. Brother No problems noted. Sister No problems noted. Sister Skin cancer Daughter No problems noted. Daughter No problems noted. Denies family history of Ovarian cancer Prostate cancer Colorectal cancer Past Surgical History Surgical History H/O Mohs micrographic surgery for skin cancer History of appendectomy History of arthroscopy RIGHT KNEE History of cataract surgery (~03/2018) bilat History of colonoscopy History of cystoscopy 05/10/23- w/ laser litho, [place] History of esophagogastroduodenoscopy (EGD) History of herniorrhaphy A CHILD History of lithotripsy Right ureteral ESWL: 03/21/18: atraumatic x1 LMA#4 at [facility] [place] HX MULTIPLE LITHO History of lumpectomy of left breast (09/05/22) History of lumpectomy of left breast (10/03/22) Re-excision of posterior margin from 09/05/22 lumpectomy History of temporal artery biopsy (10/06/21) Left Temporal Artery Biopsy(Left) - Jenaro Hamm, History of tonsillectomy Hx of lumpectomy (2000) RIGHT BREAST/NO LYMPH NODE REMOVAL-RADIATION Ovarian cyst with removal Social History Smoking Status: Never smoker Do You Dip or Chew Tobacco: No Hx Alcohol Use: Yes Alcohol type: beer alcohol intake frequency: holidays/special occasions only Hx Substance Use: No substance use type: does not use Testing Laboratory Results 06/05/23= WBC: 5.65 H/H: 14.6/44.9 PLATELETS: 284 SODIUM: 140 POTASSIUM: 4.1 CHLORIDE: 101 CO2: 26 BUN: 12 CREATININE: 0.7 GLUCOSE: 150 Electrocardiogram Date: 04/29/23 Findings: + NSR @ (86bpm) Normal EKG per cardio Chest X-Ray Date: 04/29/23 Findings: + NAD FINDINGS: No lines and tubes are seen. Calcified aortic knob is seen. The lungs are clear. No evidence of pleural effusion or pneumothorax.
--- OUTSIDE RECORDS SUMMARY | 2023-06-17 07:11 | External Medical Summary | Summary of Care ---
Author Name Unknown Organization [facility] Address [address] [place] [address] Phone [phone] Care Team Providers Care Mandate Retail Service Merchandiser Name Role Phone RheaPriscilla Ari IBARRA Primary Care Provider Reason for Visit * Reason Comments Follow Up 2 month follow up, g allstones , elevated labs Encounter Details Date Type Department Care Team (Late st Contact Info) Description 06/05/2023 9:45 AM EDT Office Visit General Surgery, [facility] [address] [place] [address] Osei Cruz MD [address] [place] [id number] Symptomatic cholelithiasis*; Pre-op examination Allergies Active Allergy Reactions Criticality Noted Date Comments Dust 03/22/2023 Minocycline Hcl Hives High 05/18/2008 Other - Drugs 07/21/2002 Rash from an antibiotic as a child documented as of this encounter (statuses as of 06/05/2023) Medications Medication Sig Dispensed Refills Start Date End Date Status Cholecalciferol 25 MCG (1000 UT) Oral Tablet Disintegrating Take 1 Tablet by mouth in the morning. 0 Active Polyethyl Glycol-Propyl Glycol 0.4-0.3 % Ophthalmic Solution (Ocular Lubricant) Instill 1 Drop into both eyes in the morning. 0 09/28/2021 Active metroNIDAZOLE 0.75 % External Cream (Metrocream) Apply to face topically as needed for rosacea (Dr. Mar) 0 03/08/2022 Active Nystatin 182851 UNIT/GM External CreamIndications:Ski n candidiasis APPLY TOPICALLY TO AFFECTED AREA DAILY NEEDED FOR SKIN IRRITATION 60 g 1 08/02/2022 Active CPAP every night at bedtime. 0 Active Loratadine 10 MG Oral Tablet (Claritin) Take 1 Tablet by mouth in the morning. 0 09/12/2022 Active Pantoprazole Sodium 40 MG Oral Tablet Delayed Release (Protonix) TAKE 1 TABLET BY MOUTH ONCE DAILY IN THE MORNING 90 Tablet 3 12/05/2022 Active Lisinopril 10 MG Oral Tablet (Prinivil) Take 1 Tablet by mouth in the morning. 100 Tablet 3 12/28/2022 Active Empagliflozin 25 MG Oral Tablet (Jardiance) Take 1 Tablet by mouth in the morning. 100 Tablet 3 01/11/2023 Active Benzonatate 100 MG Oral CapsuleIndications:V iral URI with cough Take 1 Capsule by mouth 3 times a day as needed for Cough. 30 Capsule 0 03/22/2023 Active Additional Information Patient not taking.Reported on 06/05/2023 Rosuvastatin Calcium 5 MG Oral Tablet (Crestor)Indications :Dyslipidemia TAKE ONE TABLET BY MOUTH EVERY DAY 100 Tablet 3 04/11/2023 Active amLODIPine Besylate 10 MG Oral Tablet (Norvasc) Take 1 Tablet by mouth in the morning. 100 Tablet 3 04/10/2023 Active documented as of this encounter (statuses as of 06/05/2023) Active Problems Problem Noted Date Diagnosed Date Morbid (severe) obesity due to excess calories 0 03/22/2023 Type 2 diabetes mellitus wit h hemoglobin A1c goal of less than 7.0% 06/11/2022 Dyslipidemia 06/11/2022 Prediabetes 09/11/2011 Overview: 03/08 a1c 6.4 Body mass index (BMI) of 40.0-44.9 in adult 12/27 Overview: ICD-10 update of inactive term Benign neoplasm of colon 08/01/2007 Overview: adenomatous/repeat colonoscopy in 3 yrs HYPERTENSIVE RESPONSE TO EXERCISE 07/06/2007 CA IN SITU BREAST 10/27/2002 Malignant neoplasm of skin of parts of face 06/26 Overview: ICD-10 update of inactive term Calculus of gallbladder with out mention of cholecystitis or obstruction 06/25/2002 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 01/20/2002 Calculus of kidney 04/02/2001 documented as of this encounter (statuses as of 06/05/2023) Resolved Problems Problem Noted Date Diagnosed Date Resolved Date Hyperparathyroidism, primary 03/22/2023 03/22/2023 Hypertension goal BP (blood pressure) < 140/80 01/02/2012 06/02/2015 Routine general medical exam ination at a health care facility 09/12/2011 01/31/2015 Overview: Consider zoster--has had disease twice (face and trunk) Obesity, morbid (more than 1 00 lbs over ideal weight or BMI > 40) 08/09/2009 01/23/2010 Overview: Per Obesity Protocol, #19 ICD-10 update of inactive term documented as of this encounter (statuses as of 06/05/2023) Immunizations Name Administration Dates Next Due COVID-19 mRNA, LNP-s, No Pre serve, 2-Dose Series (Moderna) 05/27/2020,04/27/2020 COVID-19, mRNA, LNP-s, PF, B ooster, 100mcg/0.5mg (Moderna) 02/15/2021 Covid-19, Mrna, Lnp-s, Pf, B ivalent, 30 Mcg, IM, 12 yrs and above (Apptio) 06/26/2022 Pneumococcal Conjugate Vacc, 13 Valent (Prevnar) 08/12/2017 Pneumococcal Polysaccharide PPV23 (Pneumovax) 08/18/2018 Seasonal Influenza, Quadriva lent Hd (Fluzone Hd) 01/01/2023 Seasonal Influenza, Quadriva lent Hd, 65+ Yrs 12/01/2021,12/06/2020,12/01/2019 Seasonal Influenza, Split, I IV3, With Preserve, Inj 11/18/2015,10/19/2014,12/10/2013,12/02,11/30/2011,11/29/2010,11/29/2009 ,12/30/2007 Seasonal Influenza, Trivalen t, High Dose, No Preserve, IM 12/30/2018 TDAP (age 10 and older)(Boostrix) 03/08/2022 TDAP (age 11 and older)(Adacel) 07/21/2008 Varicella Zoster Vaccine (Adult) 01/31/2015 Zoster Vaccine Recombinant (Shingrix) 06/11/2022 ,03/08/2022 documented as of this encounter Social History Tobacco Use Types Packs/Day Years Used Date Smoking Tobacco: Never Passive Smoke Exposure: Past Smokeless Tobacco: Never Alcohol Use Standard Drinks/Week Comments Yes 0 (1 standard drink = 0.6 oz pur e alcohol) occassionally PHQ-2 Answer Date Recorded PHQ Adult Total Score 0 03/22/2023 Hunger Vital Sign Answer Date Recorded Within the past 12 months, y ou worried that your food would run out before you got the money to buy more. Never true 03/22/19 24 Within the past 12 months, t he food you bought just didn't last and you didn't have money to get more. Never true 03/22/2023 Sex and Gender Information Value Date Recorded Sex Assigned at Female 09/12/2022 11:03 AM EDT Gender Identity Female 09/12/2022 11:03 AM EDT Sexual Orientation Straight 09/12/2022 11 :03 AM EDT Job Start Date Occupation Industry Not on file Not on file Not on file documented as of this encounter Progress Notes * Osei Cruz MD - 06/05/2023 9:58 AM EDT [facility] [address] [facility] [place] [address] [facility] Chief Complaint: Chief Complaint Patient presents with Follow Up 2 month follow up, gallstones , elevated labs Patient returns to schedule ubaldo adams; H&P remains as below: History of Present Illness: Nevaeh Light is a 72 year old female who has been having questionable pain. The pain does not radiate to the patient's back. The patient does not have nausea associated with it. The patient does not have any jaundice associated with it. The pain is not made worse byfatty or fried foods. 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 Calculus of kidney ureteral calculi GERD (gastroesophageal reflux disease) Herpes zoster 09/10 right eyebrow, also hx chest 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 MANDA (obstructive sleep apnea) uses c-pap nightly OTHER hypertension Other malignant neoplasm of skin, site unspecified 06/26/2002 nodular basal cell ca, left ala Pagets disease, breast, right (HCC) Prediabetes 09/11/2011 Respiratory failure (HCC) 11/26/2015 Sebaceous cyst 07/04/1999 LUQ, abd wall,() Type 2 diabetes mellitus (HCC) Urolithiasis 05/26/2012 left- lithotripsy Past Surgical History Past Surgical History: Procedure Laterality Date BIOPSY OF BREAST, OPEN 01/19/2002 Path : fibrocystic changes- negative for tumor BREAST BIOPSY Right 2000 paget's invasive BREAST BIOPSY Left 2022 DCIS BREAST BIOPSY Left Benign BREAST BIOPSY Left Benign BREAST BIOPSY Left Benign BREAST LESION,OTHER,EXCISION Left 10/03/2022 EXCISION OF CYST OR TUMOR BREAST performed by Pennie Lanza MD at OR [facility] COLONOSCOPY W/ BIOPSY (RECTUM) 01/30/2011 2 mm polyp & diverticulosis COLONOSCOPY W/ LESION REMOVAL, SNARE 08/01/2007 3 years/adenomatous COLONOSCOPY, DIAGNOSTIC (RECTUM) 11/09/2013 adenomatous polyp, diverticulosis, repeat 5 yrs COLONOSCOPY, DIAGNOSTIC (RECTUM) 11/06/2018 poor prep, christine'd / COLONOSCOPY FLEXIBLE PROXIMAL DIAGNOSTIC performed by Jennifer Graham MD at ENDOSCOPY [facility] COLONOSCOPY, DIAGNOSTIC (RECTUM) 11/07/2018 adenomatous polyp, diverticulosis, repeat 5 yrs/COLONOSCOPY FLEXIBLE PROXIMAL DIAGNOSTIC performed by Jennifer Graham MD at ENDOSCOPY [facility] CYSTOURETERO W/LITHOTRIPSY 2012 EXERCISE ECHO 06/2007 No ischemic changes; EF =60-65%; hypertensive response to exercise MASTECTOMY, PARTIAL 2000 MASTECTOMY, PARTIAL Left 09/05/2022 MASTECTOMY PARTIAL performed by Pennie Lanza MD at OR [facility] MOHS SURG STAGE 2 07/16/2002 Left nasal fold, () PARTIAL MASTECTOMY 06/05/2001 right breast central/partial mastectomy ( Dr. Pulido) [facility] RADIATION THERAPY 2000 RADIATION THERAPY MANAGEMENT NEC 07/01/01-08/11/01 right breast and chest wall,5040cGy () [facility] REMOVAL OF APPENDIX REMOVAL OF KIDNEY STONE, UP TO 2CM 1991 lithotripsy, and stone extractions REMOVAL OF KIDNEY STONE, UP TO 2CM 1994 lithotripsy and stone extractions REMOVAL OF TONSILS, UNDER AGE 12 Medications: Current Outpatient Medications Medication Sig Dispense Refill Cholecalciferol 25 MCG (1000 UT) Oral Tablet Disintegrating Take 1 Tablet by mouth in the morning. Polyethyl Glycol-Propyl Glycol 0.4-0.3 % Ophthalmic Solution (Ocular Lubricant) Instill 1 Drop intoboth eyes in the morning. metroNIDAZOLE 0.75 % External Cream (Metrocream) Apply to face topically as needed for rosacea () Nystatin 802205 UNIT/GM External Cream APPLY TOPICALLY TO AFFECTED AREA DAILY NEEDED FOR SKIN IRRITATION 60 g 1 CPAP every night at bedtime. Loratadine 10 MG Oral Tablet (Claritin) Take 1 Tablet by mouth in the morning. Pantoprazole Sodium 40 MG Oral Tablet Delayed Release (Protonix) TAKE 1 TABLET BY MOUTH ONCE DAILY IN THE MORNING 90 Tablet 3 Lisinopril 10 MG Oral Tablet (Prinivil) Take 1 Tablet by mouth in the morning. 100 Tablet 3 Empagliflozin 25 MG Oral Tablet (Jardiance) Take 1 Tablet by mouth in the morning. 100 Tablet 3 Rosuvastatin Calcium 5 MG Oral Tablet (Crestor) TAKE ONE TABLET BY MOUTH EVERY DAY 100 Tablet 3 amLODIPine Besylate 10 MG Oral Tablet (Norvasc) Take 1 Tablet by mouth in the morning. 100 Tablet 3 Benzonatate 100 MG Oral Capsule Take 1 Capsule by mouth 3 times a day as needed for Cough. (Patientnot taking: Reported on 06/05/2023) 30 Capsule 0 No current facility-administered medications for this visit. Allergies: Allergies as of 06/05/2023 - Reviewed 06/05/2023 Allergen Reaction Noted Minocin [minocycline hcl] Hives 05/18/2008 Environmental [dust] 03/22/2023 Other - drugs 07/21/2002 Family History Family History Problem Relation Age of Onset Pancreatic cancer Mother 75 Heart Disorder Mother heart murmur Diabetes Mother Heart Disorder Father multiple SD Lung cancer Aunt (Maternal) 60 - 69 Breast Cancer Aunt (Paternal) 80 Other (Benign Tumor on Cervix) Daughter 38 Basal cell carcinoma Sister Colon polyps Brother Cancer Aunt (Maternal) 50 - 59 Breast Cancer Other Social History Social History Socioeconomic History Marital status: Spouse name: Javier Number of children: 2 Years of education: Not on file Highest education level: Not on file Occupational History 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 Tobacco Use Smoking status: Never Passive exposure: Past Smokeless tobacco: Never Vaping Use Vaping Use: Never used Substance and Sexual Activity Alcohol use: Yes Comment: occassionally Drug use: No Sexual activity: Yes Partners: Male Other Topics Concern Not on file Social History Narrative Not on file Social Determinants of Health Financial Resource Strain: Not on file Food Insecurity: No Food Insecurity (03/22/2023) Hunger Vital Sign Worried About Running Out of Food in the Last Year: Never true Ran Out of Food in the Last Year: Never true Transportation Needs: Not on file Physical Activity: Not on file Stress: Not on file Social Connections: Not on file Intimate Partner Violence: Not on file Housing Stability: Not on file ROS: GEN: no weight loss, fever, fatigue HEENT: no changes in vision or hearing, no sinus problems, no sore throat, no hoarseness RESPIRATORY: no cough, wheezing, SOB or change in breathing CARDIOVASCULAR: no exertional chest pain, dyspnea, palpitations GI: see HPI , otherwise negative : no dysuria, hematuria, frequency MUSCULOSKELETAL: no change in joint pains, no new arthritis PSYCHIATRIC: no significant anxiety or depression, unchanged sleep pattern HEME: no bleeding tendency, no clotting tendency NEURO: no significant headache, no seizures , no tremors SKIN: no new rashes, no itching Physical Exam: There were no vitals taken for this visit. Constitutional: alert, healthy, well nourished Head: normocephalic, atraumatic Eyes: conjunctiva non-injected, sclera white Ears: pinna normal shape and color Nose: no purulent discharge Mouth: lips, mucosa, and tongue normal Neck: supple, no adenopathy Lungs: clear to auscultation, breath sounds are equal and symmetric Heart: regular rate & rhythm and no murmur, gallops or rubs Abdomen: soft, normal bowel sounds, no abnormal masses, no hernias, + tenderness (RUQ; mild) Back: normal curvature, normal ROM Extremities: no joint deformities, effusion, or inflammation, no edema, no skin discoloration Neuro: alert, gait normal, motor normal Skin: no obvious rashes or significant lesions Imaging: EXAM US ABDOMEN LIMITED-04/02/2023 11:57 am HISTORY elevated liver enzymes and bilirubin TECHNIQUE Sonogram of the right upper quadrant. COMPARISON CT abdomen pelvis dated 05/14/2013 FINDINGS LIVER: Increased echogenicity. Homogeneous echotexture. BILE DUCTS: No intrahepatic or extrahepatic duct dilatation. The common bile duct measures 3 mm. GALLBLADDER: Cholelithiasis. No gallbladder wall thickening or pericholecystic fluid. PANCREAS: Visualized portions are unremarkable. RIGHT KIDNEY: 11.9 cm in length. No hydronephrosis, shadowing calculi, or focal lesion. OTHER: No ascites. IMPRESSION IMPRESSION 1. Hepatic steatosis. 2. Cholelithiasis without evidence of acute cholecystitis. Lab: TB 1.3; alk phos 159 Impression: Nevaeh Light is a 72 year old female with cholelithiasis. I feel that the patient is a good candidate for laparascopic cholecystectomy. Treatment Plan: Laparascopic cholecystectomy with intraoperative cholangiogram. Risks discussed with the patient, including but not limited to: bleeding, infection, conversion to open, injury to the common bile duct, bile leak, retained common bile duct stone requiring ERCP, postoperative diarrhea and intolerance to foods postoperatively. Expected same day nature of surgery and recovery period reviewed. All of the patient's questions have been answered. Will check CBC, CMP, EKG preoperatively. Will schedule at [facility] on 06/17/2023. Osei Cruz MD 06/05/2023 9:59 AM documented in this encounter Nursing Notes * Lucinda Castaneda LPN - 06/05/2023 10:24 AM EDT Patient scheduled at [facility] for Lap Qian with Dr Osei Cruz. Date of Test: [id number] Medications reviewed. EKG not obtained, hers is still current Labs: obtained Permit signed. Patient verbalizes understanding of pre- and post op instructions. Written instructions given for review at later date. Lucinda Castaneda LPN 06/05/2023 * Jamaica Mcconnell LPN - 06/05/2023 9:57 AM EDT Patient identified by name and date of . Chief Complaint Patient presents with Follow Up 2 month follow up, gallstones , elevated labs No symptoms, last labs 03/22/2023 documented in this encounter Plan of Treatment Upcoming Encounters Date Type Department Care Team (Late st Contact Info) Description 07/23/2023 9:20 AM EDT Office Visit Family Practice [address] [place] [address] Priscilla Wilkerson DO [address] [place] [address] 2023 9:45 AM EDT Office Visit General Surgery, [facility] [address] [facility] [place] [address] Pennie Lanza MD [address] [facility] [place] [address] 12/20/2023 1:00 PM EDT Nurse Only Ancillary [address] [place] [address] College, Nurse Annual Wellness Visit [address] [address] Scheduled Orders Name Type Priority Associated Diagnoses Orde r Schedule CBC Lab Routine Pre-op examination Expected: 06/05/2023, Expires: 06/04/2024 COMPREHENSIVE METABOLIC PANEL Lab Routine Pre-op examination Expected: 06/05/2023, Expires: 06/04/2024 Scheduled Procedures Name Priority Associated Diagnoses Date/Ti me COLONOSCOPY FLEXIBLE PROXIMAL DIAGNOSTIC Recall History of colon polyps Health Maintenance Due Date Last Done Comments COVID-19 Vaccine ( season) 2022 06/26/2022, 02/15/2021, 05/27/2020, Additional history exists Diabetic Eye Exam 06/12/2023 06/11/2022, 08/30/2021 Diabetic Foot Exam 06/12/2023 06/11/2022 Mammogram 06/27/2023 06/26/2022, 05/27, 01/27/2015, Additional history exists HbA1c 09/20/2023 03/22/2023, 08/26, 03/08/2022, Additional history exists COLONOSCOPY-EVERY 5 YRS AGES 18-100 11/08/2023 11/07/2018, 11/07/2018, 11/06/2018, Additional history exists Albumin/Creatinine Ratio 03/22/2024 024, 12/21/2022, 03/08/2022 Depression Screening 03/22/2024 03/22/2023 GFR 03/22/2024 03/22/2023, 12/26, 09/13/2022, Additional history exists Lipid Panel 03/22/2028 03/22/2023, 02/25, 01/31/2015, Additional history exists DXA Scan 04/23/2029 04/23/2022, 03/29, 10/06/2012, Additional history exists DTaP,Tdap,and Td Vaccines (3 - Td or Tdap) 03/08/2032 03/08/2022, 07/21/2008 Pneumococcal Vaccine: 65+ Years Completed 08/18/2018, 08/12/2017 Zoster Vaccines Completed 06/11/2022, 02/25, 01/31/2015 Influenza Vaccine (FLU shot) Completed 08/2022, 12/01/2021, 12/06/2020, Additional history exists GARDASIL-HPV IMMUNIZATION SERIES Aged Out No longer eligible based on patient's age to complete this topic Hepatitis B Aged Out No longer eligi ble based on patient's age to complete this topic MENINGOCOCCAL (MENACTRA/MENVEO) Aged Out No longer eligible based on patient's age to complete this topic documented as of this encounter Medical Devices Not on filedocumented as of this encounter Visit Diagnoses Diagnosis Symptomatic cholelithiasis- Primary Calculus of gallbladder without mention of cholecystitis or obstruction Pre-op examination Preoperative examination, unspecified documented in this encounter Advance Directives Latest Code Status on File Code Status Date Activated Date Inactivated Comments Full Code 10/03/2022 7:13 AM 10/03/2022 2:58 PM This or hilda reflects the patients wishes and were consensually agreed upon. Question Answer Comments Discussion of Advance Directives occurred with: Patient Does the patient have a Living Will? No Does the patient have Health Care Power of Hospital Orderly? No Code Status History Code Status Date Activated Date Inactivated Comments Full Code 09/05/2022 9:51 AM 09/05/2022 7:00 PM This order reflects the patients wishes and were consensually agreed upon. Question Answer Comments Discussion of Advance Directives occurred with: Patient Does the patient have a Living Will? No Does the patient have Health Care Power of Hospital Orderly? No Care Teams Mandate Retail Service Merchandiser Relationship Specialty Start Date End Date Priscilla Wilkerson DO [address] [place] [address] PCP - General Family Medicine 04/23/22 documented as of this encounter
--- OUTSIDE RECORDS SUMMARY | 2023-06-17 07:11 | External Medical Summary ---
Author Name Unknown Address Unknown Organization [id number] [address] [place] [id number] Laboratory Report Ordering Provider Test Date Status SINGH [place]USTIN 06/05/2023 10:32:52 Final Observation Date Value Abnormality Reference (Units ) Status WBC, Total 06/05/2023 10:32:52 5.65 4.00-10.8 0 (K/uL) Final RBC 06/05/2023 10:32:52 4.87 3.85-5.15 (M/uL) Final Hemoglobin 06/05/2023 10:32:52 14.6 12.0-15.3 (g/dL) Final HCT 06/05/2023 10:32:52 44.9 36.0-45.2 (%) Final MCV 06/05/2023 10:32:52 92.2 81.5-97.5 (fL) Final MCH 06/05/2023 10:32:52 30.0 27.0-34.0 (pg) Final MCHC 06/05/2023 10:32:52 32.5 32.0-36.0 (g/dL) Final RDW 06/05/2023 10:32:52 12.5 11.5-15.5 (%) Final Platelets 06/05/2023 10:32:52 284 140-400 (K /uL) Final MPV 06/05/2023 10:32:52 9.3 6.6-11.1 ( fL) Final Performing Location [facility] [address] [place] [address]
--- OUTSIDE RECORDS SUMMARY | 2023-06-17 07:11 | External Medical Summary | Summary of Care ---
Author Name Unknown Organization [facility] Address [address] [place] [address] Phone [phone] Care Team Providers Care Retail [employer] Pro Name Role Phone RheaPriscilla Ari IBARRA Primary Care Provider [phone] Reason for Visit * Reason Comments Follow Up 2 month follow up, g allstones , elevated labs Encounter Details Date Type Department Care Team (Late st Contact Info) Description 06/05/2023 9:45 AM EDT Office Visit General Surgery, [facility] [address] [place] [address] Osei Cruz MD [address] [place] [address] Symptomatic cholelithiasis*; Pre-op examination Allergies Active Allergy [...] rosacea (Dr. Mar) 0 03/08/2022 Active Nystatin 332498 UNIT/GM External CreamIndications:Ski n candidiasis APPLY TOPICALLY [...] 30 Mcg, IM, 12 yrs and above ([employer] 06/26/2022 Pneumococcal Conjugate Vacc, 13 Valent (Prevnar) [...] Cruz MD - 06/05/2023 9:58 AM EDT [facility] 132 [facility] [place] [address] [facility] Chief Complaint: Chief Complaint Patient presents with Follow Up 2 month follow up, gallstones , elevated labs Patient returns to schedule ubaldo aadms; H&P remains as below: History of Present [...] performed by Pennie Lanza MD at OR [facility] [address] COLONOSCOPY W/ BIOPSY (RECTUM) 01/30/2011 2 mm polyp & diverticulosis COLONOSCOPY W/ LESION REMOVAL, SNARE 08/01/2007 3 years/adenomatous COLONOSCOPY, DIAGNOSTIC (RECTUM) 11/09/2013 adenomatous polyp, diverticulosis, repeat 5 yrs COLONOSCOPY, DIAGNOSTIC (RECTUM) 11/06/2018 poor prep, christine'd / COLONOSCOPY FLEXIBLE PROXIMAL DIAGNOSTIC performed by Jennifer Graham MD at ENDOSCOPY [facility] [address] COLONOSCOPY, DIAGNOSTIC (RECTUM) 11/07/2018 adenomatous polyp, diverticulosis, repeat 5 yrs/COLONOSCOPY FLEXIBLE PROXIMAL DIAGNOSTIC performed by Jennifer Graham MD at ENDOSCOPY [facility] [address] [address] CYSTOURETERO W/LITHOTRIPSY 2012 EXERCISE ECHO 06/2007 No ischemic changes; EF =60-65%; hypertensive response to exercise MASTECTOMY, PARTIAL 2000 MASTECTOMY, PARTIAL Left 09/05/2022 MASTECTOMY PARTIAL performed by Pennie Lanza MD at OR [facility] [address] [address] MOHS SURG STAGE 2 07/16/2002 Left nasal fold, () PARTIAL MASTECTOMY 06/05/2001 right breast central/partial mastectomy ( Dr. 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 Will schedule at [facility] on 06/17/2023. Osei Cruz MD 06/05/2023 9:59 AM documented in this encounter Nursing Notes * Lucinda Castaneda LPN - 06/05/2023 10:24 AM EDT Patient scheduled at [facility] for Lap Qian with Dr Osei Cruz. [...] Upcoming Encounters Date Type Department Care Team (Latest Contact Info) Description 06/05/2023 11:20 AM EDT Laboratory Laboratory, [facility] 132 [facility] [place] [phone] Michelle Preston [address] [facility] [place] [address] Pre-op examination 06/19/2023 9:00 AM EDT Scheduled Telephone General Surgery, [facility] [address] [place] [address] Mohan Nurse Gen Surg [facility] 132 [facility] [place] [address] 07/01/2023 10:45 AM EDT Office Visit General Surgery, [facility] [address] [place] [address] Osei Cruz MD 132 [facility] [place] [address] 07/23/2023 9:20 AM EDT Office Visit Family Practice 65 [facility] 293 [facility] [place] [address] Priscilla Wilkerson DO 293 [place] [address] 2023 9:45 AM EDT Office Visit General Surgery, [facility] 132 [facility] [place] [address] Pennie Lanza MD 132 [facility] [place] [address] 12/20/2023 1:00 PM EDT Nurse Only Ancillary 65 [facility] 293 [facility] [place] [address] College, Nurse Annual Wellness Visit [address] [address] Pending Results Name Type Priority Associated Diagnoses Date /Time CBC Lab Routine Pre-op examination 06/05/2023 10:32 AM EDT COMPREHENSIVE METABOLIC PANEL Lab Routine Pre-op examination 06/05/2023 10:32 AM EDT Scheduled Orders Name Type Priority Associated Diagnoses [...] or obstruction Pre-op examination Preoperative examination, unspecified Pre-op examination Preoperative examination, unspecified documented in [...] the patient have Health Care Power of Heating And Ventilating Tender? No Code Status History Code Status Date Activated Date Inactivated Comments Full Code 09/05/2022 9:51 AM 09/05/2022 7:00 PM This order reflects the patients wishes and were consensually agreed upon. Question Answer Comments Discussion of Advance Directives occurred with: Patient Does the patient have a Living Will? No Does the patient have Health Care Power of Heating And Ventilating Tender? No Care Teams Retail [employer] Pro Relationship Specialty Start Date End Date Priscilla Wilkerson DO [address] [place] [address] PCP - General Family Medicine 04/23/22 documented as of this encounter
--- OUTSIDE RECORDS SUMMARY | 2023-06-17 07:11 | External Medical Summary ---
Author Name Unknown Address Unknown Organization [id number] [address] [place] [address] Laboratory Report Ordering Provider Test Date Status SINGH AUSTIN 06/05/2023 10:32:52 Final Observation Date Value Abnormality Reference (Units ) Status BUN 06/05/2023 10:32:52 12 6-20 (mg/dL) Final Creatinine 06/05/2023 10:32:52 0.7 0.5-1.0 (mg/dL) Final Glomerular filtration rate/1.73 sq M.predicted [Volume Rate/Area] in Serum, Plasma or Blood by Creatinine-based formula (CKD-EPI) 06/05/2023 10:32:52 >90 >=60 (mL/min) Final eGFR is calculated based on the CKD-EPI 2020 equation Sodium 06/05/2023 10:32:52 140 135-146 (m mol/L) Final Potassium 06/05/2023 10:32:52 4.1 3.5-5.1 (m mol/L) Final Cl 06/05/2023 10:32:52 101 98-107 (mm ol/L) Final CO2 06/05/2023 10:32:52 26 22-32 (mmo l/L) Final Anion gap 06/05/2023 10:32:52 13 7-15 (mmol /L) Final Glucose 06/05/2023 10:32:52 150 Above high normal 70 -120 (mg/dL) Final Albumin 06/05/2023 10:32:52 4.4 3.8-5.0 (g /dL) Final AST (Aspartate aminotransferase) 06/05/2023 10:32:52 36 Above high normal 10-35 (U/L) Final Alk Phos 06/05/2023 10:32:52 140 Above high normal 35 -130 (U/L) Final Bilirubin, Total 06/05/2023 10:32:52 1.0 <=1 .2 (mg/dL) Final Calcium 06/05/2023 10:32:52 9.7 8.4-10.2 ( mg/dL) Final Protein 06/05/2023 10:32:52 7.0 6.0-8.3 (g /dL) Final ALT (Alanine aminotransferase) 06/05/2023 10:32:52 31 10-35 (U/L) Jose currie Performing Location [facility] [place] [address] [facility] [address]
--- OUTSIDE RECORDS SUMMARY | 2023-06-17 07:11 | External Medical Summary | Summary of Care ---
Author Name Unknown Organization [facility] Address [address] [place] [address] Phone [phone] Care Team Providers Care Diamond Sorter Name Role Phone DavidPriscilla foreman Primary Care Provider [phone] Reason for Visit * Reason Comments Outpatient Testing Encounter Details Date Type Department Care Team (Late st Contact Info) Description 06/05/2023 11:20 AM EDT Laboratory Laboratory, [facility] [id number] [facility] 132 [facility] [address] Pre-op examination Allergies Active Allergy Reactions Criticality [...] rosacea (Dr. Mar) 0 03/08/2022 Active Nystatin 585451 UNIT/GM External CreamIndications:Ski n candidiasis APPLY TOPICALLY TO AFFECTED AREA DAILY NEEDED FOR SKIN IRRITATION 60 g 1 08/02/2022 4 Active CPAP every night at bedtime. 0 [...] 30 Mcg, IM, 12 yrs and above ([employer]) 06/26/2022 Pneumococcal Conjugate Vacc, 13 Valent (Prevnar) [...] on file documented as of this encounter Plan of Treatment Upcoming Encounters Date Type Department Care Team (Late st Contact Info) Description 06/19/2023 9:00 AM EDT Scheduled Telephone General Surgery, [facility] [address] [place] [address] Mohan, Nurse Gen Surg [facility] [address] [place] [address] 07/01/2023 10:45 AM EDT Office Visit General Surgery, [facility] [address] [place] [address] Osei Cruz MD [address] [place] [address] 07/23/2023 9:20 AM EDT Office Visit Family Practice [address] [place] [address] 293 [facility] [place] [address] Priscilla Wilkerson DO 293 [place] [address] 2023 9:45 AM EDT Office Visit General Surgery, [facility] 132 [facility] [place] [address] Pennie Lanza MD 132 [facility] [address] 12/20/2023 1:00 PM EDT Nurse Only Ancillary 65 [facility] 293 [facility] [place] [address] College, Nurse Annual Wellness Visit [address] [place] [address] Pending Results Name Type Priority Associated Diagnoses Date /Time COMPREHENSIVE METABOLIC PANEL Lab Routine Pre-op examination 06/05/2023 10:32 AM EDT Scheduled Procedures Name Priority Associated Diagnoses Date/Ti [...] Not on filedocumented as of this encounter Procedures Procedure Name Priority Date/Time Associated Diagnosis Comments CBC Routine 06/05/2023 10:32 AM EDT Pre-op examination documented in this encounter Results * CBC (06/05/2023 10:32 AM EDT) WBC 5.65 4.00 - 10.80 K/uL 06/05/2023 10:47 AM EDT [facility] [place] [facility] RBC 4.87 3.85 - 5.15 M/uL 06/05/2023 10:47 AM EDT [facility] [place] [facility] HGB 14.6 12.0 - 15.3 g/dL 06/05/2023 10:47 AM EDT [facility] [place] [facility] HCT 44.9 36.0 - 45.2 % 06/05/2023 10:47 AM EDT [facility] [place] [facility] MCV 92.2 81.5 - 97.5 fL 06/05/2023 10:47 AM EDT [facility] [place] [facility] MCH 30.0 27.0 - 34.0 pg 06/05/2023 10:47 AM EDT [facility] [place] [facility] MCHC 32.5 32.0 - 36.0 g/dL 06/05/2023 10:47 AM EDT [facility] [place] [facility] RDW 12.5 11.5 - 15.5 % 06/05/2023 10:47 AM EDT [facility] [place] [facility] PLT 284 140 - 400 K/uL 06/05/2023 10:47 AM EDT [facility] [place] [facility] MPV 9.3 6.6 - 11.1 fL 06/05/2023 10:47 AM EDT [facility] [place] [facility] Blood Venous blood specimen / Unknown Venipuncture / Unknown 06/05/2023 10:32 AM EDT 06/05/2023 10:32 AM EDT Osei Cruz MD LAB BLOOD O RDERABLES [facility] [place] [address] documented in this encounter Visit Diagnoses Diagnosis Pre-op examination Preoperative examination, unspecified documented in [...] the patient have Health Care Power of Operating Room Surgical Technologist? No Code Status History Code Status Date Activated Date Inactivated Comments Full Code 09/05/2022 9:51 AM 09/05/2022 7:00 PM This order reflects the patients wishes and were consensually agreed upon. Question Answer Comments Discussion of Advance Directives occurred with: Patient Does the patient have a Living Will? No Does the patient have Health Care Power of Operating Room Surgical Technologist? No Care Teams Diamond Sorter Relationship Specialty Start Date End Date Priscilla Wilkerson DO [address] [place] [address] PCP - General Family Medicine 04/23/22 documented as of this encounter
[2023-06-17] MEDS: LACTATED RINGER'S 1,000 ML IV SCH (07:21)
[2023-06-17] MEDS ORDERED: fentaNYL citrate PF 100 MCG/2 ML VIAL ONE (07:33)
[2023-06-17] MEDS ORDERED: ROCURONIUM BROMIDE 10 MG/ML 5 ML VIAL IV ONE (07:33)
[2023-06-17] MEDS ORDERED: PROPOFOL IV EMULSION 10 MG/ML 20 ML VIAL IV ONE (07:33)
[2023-06-17] MEDS ORDERED: ONDANSETRON INJ 2 MG/ML 2 ML VIAL ONE (07:33)
[2023-06-17] MEDS ORDERED: LIDOCAINE 2% 2 ML VIAL/AMP(20MG/ML) INFIL ONE (07:33)
[2023-06-17] MEDS ORDERED: HYDROmorphone INJ 2 MG/ML SYR/VIAL IV PRN (08:09)
[2023-06-17] MEDS ORDERED: ONDANSETRON INJ 2 MG/ML 2 ML VIAL IV PRN ×2 (08:09→09:55)
[2023-06-17] MEDS ORDERED: PROMETHAZINE HCL 6.25 MG in SODIUM CHLORIDE 0.9% 50 ML IV PRN (08:09)
[2023-06-17] MEDS ORDERED: ePHEDrine sulfate 50 MG/ML AMP IV PRN (08:09)
[2023-06-17] MEDS ORDERED: ATROPINE SULFATE 0.1 MG/ML 10ML SYR IV PRN (08:09)
--- NOTE | 2023-06-17 08:25 | History & Physical Bridge Note ---
Date of Service June 17, 2023 History & Physical Bridge Note I have examined the patient, reviewed the History & Physical and in the interval since the performance of the History & Physical I have noted the following changes of clinical significance: no changes noted
[2023-06-17] MEDS: ceFAZolin 2000MG 2,000 MG/15 ML SYR IV SCH (08:29)
[2023-06-17] MEDS ORDERED: SODIUM CHLORIDE 0.9% PF INJ 10 ML VIAL ONE ×2 (08:34→09:18)
[2023-06-17] MEDS ORDERED: SUGAMMADEX SODIUM 200 MG/2 ML VIAL IV ONE ×2 (08:53→09:50)
[2023-06-17] MEDS ORDERED: GLYCOPYRROLATE 0.2 MG/ML VIAL ONE (09:10)
[2023-06-17] MEDS ORDERED: IOVERSOL 50ml IV PRN (09:28)
[2023-06-17] MEDS: BUPIVACAINE/EPINEPHRINE 0.5% MPF 1:200,000 30 ML VIAL ONE (09:41)
--- NOTE | 2023-06-17 09:48 | Post Operative Brief Note ---
Immediate Post Op Note v1 Date of Surgery June 17, 2023 Pre & Post Diagnosis Operation Date: 06/17/23 08:35 <No data on this case meets the specified criteria> I identified the patient and participated in the time-out.: Yes Procedure Operation Date: 06/17/23 08:35 <No data on this case meets the specified criteria> Surgeon Osei Cruz MD Community Program Assistant none Estimated Blood Loss 45 Findings Consistent with Post-Op Diagnosis
--- NOTE | 2023-06-17 09:54 | Operative Report ---
Post Operative Report Pre & Post Diagnosis Operation Date: 06/17/23 08:35 <No data on this case meets the specified criteria> Cholelithiasis with elevated liver function tests I identified the patient and participated in the time-out.: Yes Procedure Operation Date: 06/17/23 08:35 <No data on this case meets the specified criteria> Laparoscopic cholecystectomy with attempted intraoperative cholangiogram Surgeon Osei Cruz MD Data Communications Engineer none Estimated Blood Loss 45 Findings Consistent with Post-Op Diagnosis Patient had a very small cystic duct and technically we were not able to thread the catheter through the duct. Therefore the attempted a cholangiogram was aborted. Her liver tests were elevated initially but did return to baseline and had no signs of common bile duct stones by ultrasound. Specimens Gallbladder to pathology Drains None Anesthesia Type General Complications None Indications This is a 72-year-old female with history of right upper quadrant abdominal pain. Studies were done which demonstrated gallstones. There were no signs of ductal dilatation or any other ultrasound findings of com bile duct stones. She did however have some elevated liver tests preoperatively. Therefore an attempted cholangiogram will need. We have the risks in detail with her. Description of Procedure The patient was taken the OR and underwent excellent general endotracheal anesthesia. Their abdomen is prepped and draped normal sterile fashion. A transverse supraumbilical incision was made and dissection was taken down to identify the anterior fascia. Two Vicryl's were placed on either side of the midline and his midline was then incised. The peritoneal cavity was entered bluntly with Paty clamp. A 12mm Patrick trocar was then inserted and secured. Good pneumoperitoneum was achieved to 15 mmHg pressure. Patient is placed in head up and rolled to the left. A 11mm subxiphoid and two 5mm lateral ports were placed in the normal fashion. The gallbladder was identified was acutely inflamed. An aspirator was then used to aspirate the gallbladder. This then facilitated grasping the the fundus of the gallbladder which was retracted superiorly. The neck of the gallbladder was grasped and then retracted laterally. This splayed open the Hepatocystic triangle. Attention was then to taking down the peritoneal attachments to identify the cystic duct and cystic artery. Once these were skeletonized and a medial and lateral window was created between the gallbladder fossa and the duct, thereby ensuring the critical view. A clip was placed proximally on the cystic duct. A cholangiogram catheter was then threaded through a 14-gauge Angiocath. Incision was made in the duct but the catheter would not advance secondary to the size of the duct and the angle. therefore three clips were then placed distally on cystic duct 1 proximally the cystic duct was transected. Two clips were then placed approximately cystic artery one distally, the cystic artery was transected. Therefore the attempted cholangiogram was aborted. there was some bleeding from the cystic artery which was controlled with clips. An electrocautery hook was then used to move the gallbladder off the gallbladder fossa. There was some bile spillage but no stones were spilled. The gallbladder was then placed into an Endobag and brought out through the supraumbilical incision. The pneumoperitoneum was re-established and abdomen was irrigated out until the suction fluid was clear. There were some areas on the gallbladder fossa which were raw and were cauterized and then a Surgicel was used to cover the gallbladder fossa. The ports were then removed and the abdomen decompressed. The fascia of the supraumbilical incision was closed with Vicryls. 0.5% M arcaine with epinephrine local was to create a local field block. Interrupted Vicryl was used to close the skin. Dermabond was used to reinforce the incisions. Sterile dressings were applied. Patient tolerated the procedure without complication and sent to the postop recovery period of observation. He will then be sent to the floor for the rest of his care. I attest to the content of the Intraoperative Record and any orders documented therein. Any exceptions are noted below.
[2023-06-17] MEDS: ALBUT/IPRATROP 3MG/0.5MG NEB 3 ML VIAL NEB STA (10:03)
[2023-06-17] MEDS ORDERED: ALBUTEROL HFA 8 GM INHALER INH ONE (10:09)
[2023-06-17] MEDS: fentaNYL citrate PF 100 MCG/2 ML VIAL IV PRN (10:18)
[2023-06-17] MEDS: ACETAMINOPHEN 1,000 MG/100 ML VIAL IV STA (10:36)
--- NOTE | 2023-06-17 11:21 | XRay Report ---
XR chest 1V portable CLINICAL HISTORY: compensated breathing, oxygen saturation COMPARISON STUDY: Chest radiograph April 29, 2023. FINDINGS: Low lung volumes. Linear bibasilar densities represent atelectasis. No consolidation is manisha ntified. There is mild elevation of the right hemidiaphragm. Mild enlargement of the cardiac silhouet te is noted. This is accentuated given technique. No radiographic evidence for pulmonary edema. There is no pneumothorax. Possible trace left pleural effusion. IMPRESSION: 1. Low lung volumes with linear bibasilar densities suggestive of atelectasis. 2. No pneumothorax. Possible trace left pleural effusion. 3. No radiographic evidence for pulmonary edema. ACT 112: Negative or not required by law. Electronically signed by: Abdirahman Vergara M.D. 06/17/2023 11:19 AM
--- NOTE | 2023-06-17 11:55 | Consultation ---
Date of Consultation June 17, 2023 Assessment & Plan (1) Cholecystitis with cholelithiasis: (2) MANDA on CPAP: (3) Morbid obesity with BMI of 40.0-44.9, adult: (4) Type 2 diabetes mellitus: Plan Patient is a 72-year-old female with past medical history of morbid obesity, MANDA on CPAP(6 CMS 2 at bedtime), hypertension, type 2 diabetes mellitus, dyslipidemia who is admitted for elective laparoscopic cholecystectomy with attempted intraoperative cholangiogram. Patient was seen in postoperative recovery room. She is on CPAP at 10 cm H2O. She is slightly sleepy but easily awake able by voice; oriented to time place and person. She denies any pain at the moment. No complaint of chest pain or shortness of breath. She is following commands appropriately. On physical examination; Constitutional: Sleepy but awakens to voice voice. Alert oriented x 3 Respiratory: Bilateral vesicular breath sounds; no added sound. Cardiovascular: RRR, no murmur, no edema Vessels: no JVD or carotid bruit Abdomen: Dressing in place; Musculoskeletal: no cyanosis or clubbing, extremities motor strength 5/5 Skin: no rashes, warm and dry normal turgor Neurologic: Grossly moves all extremities Psychiatric: A+Ox3, euthymic affect Assessment/plan POD 0 of laparoscopic cholecystectomy with attempted cholangiogram Patient underwent laparoscopic cholecystectomy for symptomatic gallstones. Intraoperative cholangiogram was attempted; however due to very small cystic duct not able to thread the catheter through the duct. On clear liquid diet as per surgery. Advance diet as tolerated Pain control PT OT eval Morbid obesity MANDA On CPAP at 6 cmH2O at night. Continue while inpatient. Obtain baseline ABG. Hypertension Continue on amlodipine, lisinopril from tomorrow AM. Type 2 diabetes mellitus; Hold home Jardiance, glimepiride. Sliding scale while inpatient. ACHS Hypoglycemia protocol I have reviewed the advanced practitioner's documentation, and I agree with, and take responsibility for the plan of care I spent a total of 30 minutes coordinating, documenting, and providing care for this patient excluding time spent in the performance of separately billed services. All of the aforementioned completed while collaborating with the assigned advanced practitioner for a full treatment plan Please note the above document was generated using voice recognition software. It may contain grammatical, syntax or spelling errors. Any formal questions or concerns about the content, text or information contained within the body of this dictation should be directly addressed to the provider for clarification CASSIE PORTION: Pt was seen and examined in collaboration with Dr. Betts, please see addendum A total of 31 minutes was spent coordinating, documenting, and providing care for this patient excluding time spent in the performance of separately billed services. This included personally viewing all current laboratories and imaging studies, medication reconciliation, outpatient chart review, and discussion with specialists. Supervising Physician Co-Signing Physician Notes Patient is a 72-year-old female with past medical history of morbid obesity, MANDA on CPAP(6 CMS 2 at bedtime), hypertension, type 2 diabetes mellitus, dyslipidemia who is admitted for elective laparoscopic cholecystectomy with attempted intraoperative cholangiogram. Patient was seen in postoperative recovery room. She is on CPAP at 10 cm H2O. She is slightly sleepy but easily awake able by voice; oriented to time place and person. She denies any pain at the moment. No complaint of chest pain or shortness of breath. She is following commands appropriately. On physical examination; Constitutional: Sleepy but awakens to voice voice. Alert oriented x 3 Respiratory: Bilateral vesicular breath sounds; no added sound. Cardiovascular: RRR, no murmur, no edema Vessels: no JVD or carotid bruit Abdomen: Dressing in place; Musculoskeletal: no cyanosis or clubbing, extremities motor strength 5/5 Skin: no rashes, warm and dry normal turgor Neurologic: Grossly moves all extremities Psychiatric: A+Ox3, euthymic affect Assessment/plan POD 0 of laparoscopic cholecystectomy with attempted cholangiogram Patient underwent laparoscopic cholecystectomy for symptomatic gallstones. Intraoperative cholangiogram was attempted; however due to very small cystic charisse t not able to thread the catheter through the duct. On clear liquid diet as per surgery. Advance diet as tolerated Pain control PT OT eval Morbid obesity MANDA On CPAP at 6 cmH2O at night. Continue while inpatient. Obtain baseline ABG. Hypertension Continue on amlodipine, lisinopril from tomorrow AM. Type 2 diabetes mellitus; Hold home Jardiance, glimepiride. Sliding scale while inpatient. ACHS Hypoglycemia protocol I have reviewed the advanced practitioner's documentation, and I agree with, and take responsibility for the plan of care I spent a total of 30 minutes coordinating, documenting, and providing care for this patient excluding time spent in the performance of separately billed servi jarett. All of the aforementioned completed while collaborating with the assigned advanced practitioner for a full treatment plan Please note the above document was generated using voice recognition software. It may contain grammatical, syntax or spelling errors. Any formal questions or concerns about the content, text or information contained within the body of this dictation should be directly addressed to the provider for clarification History of Present Illness Requesting Physician: post op medical management Reason for Consultation: post op medical management Attending Physician: Osei Cruz MD History of Present Illness This is a 72-year-old female who has significant past medical history of T2DM, HTN, HLD, morbid obesity, history of right breast DCIS who presented for elective cholecystectomy by Dr. Baltazar. She tolerated the procedure well and had EBL of 45 mL. Postoperatively patient was requiring CPAP. She is otherwise drowsy but does answer questions appropriately. She complains of some postoperative pain. She is alert and oriented and able to reiterate the fact that she had her gallbladder removed. She denies any shortness of breath, fever, chills, sweats, lightheadedness, nausea or vomiting. She remains on CPAP and tidal volumes are greater than 400. She is in no acute distress. Her vitals remained stable. Nursing at bedside offers no other concerns. Allergies Allergy/AdvReac Type Severity Reaction Status Date / Time adhesive Allergy Mild bandaids-redness Verified 06/17/23 07:19 / rash ciprofloxacin Allergy Mild RASH Verified 06/17/23 07:19 minocycline Allergy Mild RASH Verified 06/17/23 07:19 Home Medications Medication Instructions Recorded Confirmed Type cholecalciferol (vitamin D3) 25 1,000 units PO QAM 09/29/19 06/17/23 History mcg (1,000 unit) capsule nystatin 100,000 unit/gram topical 1 appln topical UD PRN Rash 09/29/19 06/17/23 History cream CPAP Supplies #1 ea 11/04/19 05/30/23 Rx cetirizine 10 mg tablet (Allergy 10 mg PO QAM 11/10/20 06/17/23 History Relief (cetirizine)) peg 400-propylene glycol (PF) 0.4 1 drp ophthalmic (eye) QAM 09/28/21 06/17/23 History %-0.3 % eye drops in a dropperette (Systane (PF)) glimepiride 2 mg tablet 2 mg PO QAM #90 tabs 12/05/21 06/17/23 Rx pantoprazole 40 mg tablet,delayed 40 mg PO QAM #90 tabs 12/05/22 06/17/23 Rx release empagliflozin 25 mg tablet 25 mg PO QAM 01/30/23 06/17/23 History (Jardiance) lisinopril 10 mg tablet (Zestril) 10 mg PO QAM 04/10/23 06/17/23 History amlodipine 10 mg tablet (Norvasc) 10 mg PO QAM 06/17/23 06/17/23 History oxycodone-acetaminophen 5 mg-325 1 tab PO Q6H PRN pain #14 tabs 06/17/23 Rx mg tablet (Percocet) rosuvastatin 5 mg tablet (Crestor) 5 mg PO QAM 06/17/23 06/17/23 History Patient History Medical History Cholecystitis with cholelithiasis History of airway aspiration hx aspiration no issues noted with 04/2023 surgery under [place] (anesthesia done with ETT given risk for aspiration) Dry eyes Skin cancer hx Fatty liver DM type 2 (diabetes mellitus, type 2) Morbid obesity Restless legs HX Intubation granuloma Per 12/2015 otolaryngology (Dr. 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 ETT #7. DL x 1 atraumatic) Dyslipidemia Migraine hx Diverticular disease GERD (gastroesophageal reflux disease) controlled Cancer - HX right breast (late ) s/p EBRT - Left breast cancer dx June or July 2022 - sx intervention x 2 & radiation: finished radiation Nov 2022. Hypertension Sleep apnea CPAP daily use. Kidney stones 05/10/23- s/p laser litho Surgical History History of lumpectomy of left breast (10/03/22) Re-excision of posterior margin from 09/05/22 lumpectomy History of lumpectomy of left breast (09/05/22) History of temporal artery biopsy (10/06/21) Left Temporal Artery Biopsy(Left) - Jenaro Hamm, DO Ovarian cyst with removal History of cataract surgery (~03/2018) bilat History of arthroscopy RIGHT KNEE History of herniorrhaphy A CHILD History of appendectomy History of esophagogastroduodenoscopy (EGD) History of colonoscopy H/O Mohs micrographic surgery for skin cancer Hx of lumpectomy (2000) RIGHT BREAST/NO LYMPH NODE REMOVAL-RADIATION History of tonsillectomy History of cystoscopy 05/10/23- w/ laser litho, [place] History of lithotripsy Right ureteral ESWL: 03/21/18: atraumatic x1 L[place]#4 [place] [facility] [place]IP[place] Family History Sister Family history of diabetes mellitus Aunt Breast cancer Father Myocardial infarction Mother , Passed Age 75 Diabetes Heart disease Pancreatic cancer, Onset Age: 75 Brother No problems noted. Brother No problems noted. Sister No problems noted. Sister Skin cancer Daughter No problems noted. Daughter No problems noted. Denies family history of Ovarian cancer Prostate cancer Colorectal cancer Social History Smoking Status: Never smoker Second Hand Exposure: Yes (father smoked in home); Do You Dip or Chew Tobacco: No; Tobacco Cessation Education Requested by Patient: No Hx Alcohol Use: Yes Alcohol type: beer Alcohol Intake Frequency: 2-4 x/Month Hx Substance Use: No Preferred Language: Czech Communication Ability: Effective Visual Impairment: Limited Hearing Ability: Hard of Hearing Qualifications Examiner Required: No Beliefs That Will Affect Care: None marital status: Current Living Situation: Spouse and Family current occupational status: retired How many Children do You have: 2 Other Information That Helps Us Care for You: No Feels Safe at Home: Yes Safety Concerns: Feels Safe At This Time Childhood Exposure to Second-Hand Smoke: Yes (Father smoked in home) Diet Comment: oxylate diet - due to kidney stones caffeine: Yes during the past year weight has: remained stable Dental Care, Regularly: No Physical Activity Frequency: Does not Exercise Seatbelt Use: always Assistive Devices: Cane, CPAP and Glasses Review of Systems Review of Systems: All systems reviewed & are unremarkable except as noted in HPI & below Physical Exam Physical Exam: please refer to Dr. Betts addendum for physical exam findings. Results & Data Vital Signs (Past 12 Hours) Vital Signs Temp Pulse Pulse Pulse Resp BP Pulse Ox 06/17/23 11:45 68 14 132/63 93 06/17/23 11:30 36.7 C 77 15 137/62 93 06/17/23 11:20 72 15 127/63 93 06/17/23 11:10 73 19 119/59 L 91 06/17/23 11:02 74 22 92 06/17/23 11:00 78 22 114/60 91 06/17/23 10:50 85 23 101/69 92 06/17/23 10:40 83 23 146/73 H 92 06/17/23 10:30 82 18 124/72 91 06/17/23 10:20 84 24 125/93 91 06/17/23 10:10 89 24 130/81 90 06/17/23 10:04 36.1 C L 86 22 162/102 H 92 06/17/23 07:27 36.6 C 88 22 131/65 94 O2 Del Method O2 Flow Rate FiO2 06/17/23 11:45 CPAP 06/17/23 11:30 CPAP 06/17/23 11:20 CPAP 06/17/23 11:10 CPAP 06/17/23 11:02 50 06/17/23 11:00 Oxymask 15 06/17/23 10:50 Oxymask 15 06/17/23 10:40 Oxymask 15 06/17/23 10:30 Oxymask 15 06/17/23 10:20 Oxymask 15 06/17/23 10:10 Oxymask 15 06/17/23 10:04 Oxymask 15 06/17/23 07:27 Room Air Laboratory Results 06/17/23 12:09 ABG pH 7.36 ABG pCO2 47 H ABG pO2 79 L ABG HCO3 27 H ABG O2 Saturation 96.9 H ABG Base Excess 0.6 Preoperative labs were independently interpreted and reviewed by myself from 04/29/2023 revealed a unremarkable CBC, BMP with elevated glucose at 173. Diagnostic Findings Chest X-Ray 06/17/23 10:54 XR chest 1V portable CLINICAL HISTORY: compensated breathing, oxygen saturation COMPARISON STUDY: Chest radiograph April 29, 2023. FINDINGS: Low lung volumes. Linear bibasilar densities represent atelectasis. No consolidation is identified. There is mild elevation of the right hemidiaphragm. Mild enlargement of the cardiac silhouette is noted. This is accentuated given technique. No radiographic evidence for pulmonary edema. There is no pneumothorax. Possible trace left pleural effusion. IMPRESSION: 1. Low lung volumes with linear bibasilar densities suggestive of atelectasis. 2. No pneumothorax. Possible trace left pleural effusion. 3. No radiographic evidence for pulmonary edema. ACT 112: Negative or not required by law. Electronically signed by: Abdirahman Vergara M.D. 06/17/2023 11:19 AM Medications Administered Medication List Fentanyl Citrate (Fentanyl Citrate Pf 100 Mcg/2 Ml Vial) 50 mcg IV Q5M PRN PRN Reason: PACU Use Only-Pain Stop: 06/17/23 16:10 Last Admin: 06/17/23 11:05 Dose: 50 mcg Documented By: Admin: 06/17/23 10:18 Dose: 50 mcg Documented By: MANUEL Lactated Ringer's (Lr) 1,000 mls @ 15 mls/hr IV .Q24H MATILDA Stop: 06/18/23 05:59 Last Infusion: 06/17/23 08:28 Dose: Infused Documented By: Admin: 06/17/23 07:21 Dose: 15 mls/hr Documented By: SEB Cefazolin Sodium (Ancef 2000mg) 2,000 mg in 15 mls @ 3.75 mls/min IV PREOP MATILDA; Protocol Stop: 06/17/23 18:00 Last Admin: 06/17/23 08:29 Dose: 3.75 mls/min Documented By: ELLIOT Discontinued Medications Albuterol (Albut/Ipratrop 3mg/0.5mg Neb 3 Ml Vial) 3 ml NEB NOW STA; Protocol Stop: 06/17/23 10:08 Last Admin: 06/17/23 10:03 Dose: 3 ml Documented By: MANUEL Bupivacaine HCl/Epinephrine Bitart (Bupivacaine/Epinephrine 0.5% Mpf 1:200,000 30 Ml Vial) Confirm Administered Dose 30 ml .ROUTE .STK-MED ONE Stop: 06/17/23 08:25 Last Admin: 06/17/23 09:41 Dose: 20 ml Documented By: LOPEZ Acetaminophen (Ofirmev) 1,000 mg in 100 mls @ 400 mls/hr IV NOW STA Stop: 06/17/23 10:48 Last Admin: 06/17/23 10:36 Dose: 400 mls/hr Documented By: MANUEL
--- NOTE | 2023-06-17 12:02 | Anesthesiology Progress Note ---
Date of Service June 17, 2023 Anesthesia Post Procedure Vital Signs Vital Signs: Temp Pulse Pulse Pulse Resp BP Pulse Ox 06/17/23 11:45 68 14 132/63 93 06/17/23 11:30 36.7 C 77 15 137/62 93 06/17/23 11:20 72 15 127/63 93 06/17/23 11:10 73 19 119/59 L 91 06/17/23 11:02 74 22 92 06/17/23 11:00 78 22 114/60 91 06/17/23 10:50 85 23 101/69 92 06/17/23 10:40 83 23 146/73 H 92 06/17/23 10:30 82 18 124/72 91 06/17/23 10:20 84 24 125/93 91 06/17/23 10:10 89 24 130/81 90 06/17/23 10:04 36.1 C L 86 22 162/102 H 92 06/17/23 07:27 36.6 C 88 22 131/65 94 O2 Del Method O2 Flow Rate FiO2 06/17/23 11:45 CPAP 06/17/23 11:30 CPAP 06/17/23 11:20 CPAP 06/17/23 11:10 CPAP 06/17/23 11:02 50 06/17/23 11:00 Oxymask 15 06/17/23 10:50 Oxymask 15 06/17/23 10:40 Oxymask 15 06/17/23 10:30 Oxymask 15 06/17/23 10:20 Oxymask 15 06/17/23 10:10 Oxymask 15 06/17/23 10:04 Oxymask 15 06/17/23 07:27 Room Air Pain Intensity Abdomen: Pain Intensity: 5 Transfer of Care Handoff Completed per policy Notes Mental Status: alert / awake / arousable and participated in evaluation Patient Amnestic to Procedure: Yes Nausea / Vomiting: adequately controlled Pain: adequately controlled Airway Patency, RR, SpO2: stable & adequate BP & HR: stable & adequate Hydration State: stable & adequate Anesthetic Complications: no major complications apparent Notes: Pt had wheezing, low SaO2 in PACU. Treated w nebulized bronchodilator, placed on CPAP. CXR done shown low volumes/atelectasis without acute findings. Discussed w surgeon, agreed to admit for CPAP/supplemental O2 as needed.
[2023-06-17 12:30] LABS: Allen Test Pos (Pos); Base Excess ABG 0.6 mEq/L (-9-1.8); HCO3 ABG 27 mmol/L (19-24); Oxygen Saturation ABG 96.9 % (90-95); PCO2 ABG 47 mmHg (35-46); PO2 ABG 79 mmHg (80-95); pH ABG 7.36 (7.35-7.45)
[2023-06-17] MEDS ORDERED: GLUCOSE 10 TAB/TUBE PO PRN (14:13)
[2023-06-17] MEDS ORDERED: GLUCAGON FOR INJ 1 MG VIAL SQ PRN (14:13)
[2023-06-17] MEDS ORDERED: DEXTROSE 50% 50 ML SYRINGE IV PRN (14:13)
[2023-06-17] MEDS ORDERED: NYSTATIN CR 15 GM TUBE EXT PRN (14:13)
[2023-06-17] MEDS ORDERED: GLUCOSE 40% GEL 15 GM TUBE PO PRN (14:13)
[2023-06-17] MEDS ORDERED: CARBOHYDRATES FOR HYPOGLYCEMIA PO PRN (14:13)
[2023-06-17] MEDS: ACETAMINOPHEN 1000 MG/100 ML IV IV ONE (14:35)
[2023-06-17] MEDS: ALBUT/IPRATROP 3MG/0.5MG NEB 3 ML VIAL ONE (14:35)
[2023-06-17] MEDS: SURGICEL ABSORB HEMOSTAT 2IN X 14IN TOP ONE (14:35)
[2023-06-17] MEDS: MoRPHine SULFATE 2 MG/ML CARP IV PRN (17:31)
[2023-06-17] MEDS: INSULIN ASPART PER UNIT CHARGE SC SCH (17:31)
[2023-06-17] MEDS: LANTUS PER UNIT CHARGE SQ SCH (21:45)
[2023-06-18] MEDS: NSS + 20MEQ KCL 20 MEQ/1,000 ML BAG IV ONE (00:22)
[2023-06-18 03:59] LABS: Basophils # (auto) 0.01 K/uL (0.00-0.20); Basophils % (auto) 0.1 %; Eosinophils # (auto) 0.01 K/uL (0.00-0.50); Eosinophils % (auto) 0.1 %; Hematocrit (blood only) 40.8 % (37.0-47.0); Hemoglobin 13.4 g/dl (12.0-16.0); Immature Granulocytes # (auto) 0.01 K/uL (0.01-0.20); Immature Granulocytes % (auto) 0.1 %; Lymphocytes # (auto) 0.86 K/uL (1.20-3.40); Lymphocytes % (auto) 10.4 %; Mean Corpuscular Hgb Conc 32.8 g/dL (32.0-36.0); Mean Corpuscular Volume 91.5 fL (80.0-100.0); Mean Platelet Volume 9.6 fL (9.4-12.4); Monocytes # (auto) 0.66 K/uL (0.11-0.59); Neutrophils # (auto) 6.72 K/uL (1.40-6.50); Neutrophils % (auto) 81.3 %; Platelet Count 237 K/uL (130-400); RDW Coefficient of Variation 12.5 % (11.5-14.5); Red Blood Count 4.46 M/uL (4.20-5.40); White Blood Count 8.27 K/ul (4.8-10.8)
[2023-06-18 04:15] LABS: Albumin Globulin Ratio 1.4 (0.9-2); Albumin Level 3.8 gm/dl (3.4-5.0); BUN Creatinine Ratio 23.5 (10-20); Bilirubin,Total 1.4 mg/dl (0.2-1.0); Calcium 9.1 mg/dl (8.6-10.3); Est GFR (African American) 112.1 ml/min; Est GFR (Non-African American) 96.7 ml/min; Globulin 2.8 gm/dl (2.5-4.0); Potassium 4.3 mmol/L (3.5-5.1); Total Protein 6.6 gm/dl (6.0-8.3)
[2023-06-18] MEDS: CHOLECALCIFEROL 25 MCG (1000 UNITS) TAB PO SCH (08:13)
[2023-06-18] MEDS: lisinopril 10 MG TAB PO SCH (08:13)
[2023-06-18] MEDS: amLODIPine BESYLATE 5 MG TAB PO SCH (08:13)
[2023-06-18] MEDS: ROSUVASTATIN CALCIUM 5 MG TAB PO SCH (08:13)
[2023-06-18] MEDS: MoRPHine SULFATE 4 MG/ML 1 ML CARP\\VIAL IV PRN (08:13)
[2023-06-18] MEDS: PANTOprazole 40 MG TAB PO SCH (08:13)
[2023-06-18] MEDS: CETIRIZINE HCL 10 MG TABLET PO SCH (08:13)
--- NOTE | 2023-06-18 09:42 | Surgery Progress Note ---
Date of Service June 18, 2023 Assessment & Plan (1) Cholelithiasis: Plan: s/p lap angie requiring O2 wean oxygen ambulate appreciate medical team discharge once criteria met Admission and Anticipated Discharge Date Admission Date: June 17, 2023 Subjective complains of pain but better with meds still requiring supplemental O2 Review of Systems Constitutional: no fever Respiratory: + dyspnea on exertion; no cough Cardiovascular: no chest pain Gastrointestinal: + abdominal pain; no nausea, no vomiting and no change in bowel habits Genitourinary: no dysuria Neurologic: no localized weakness and no generalized weakness Psychiatric: no behavioral changes Physical Exam Constitutional: WD/WN, vitals as above Respiratory: normal respiratory effort, lungs clear to auscultation Auscultation: + diminished lung sounds Cardiovascular: RRR, no murmur, no edema Gastrointestinal (Abdomen): Inspection/Auscultation: abdomen normal to inspection, normal bowel sounds and + abdominal surgical incision (C/D/I); abdomen not distended Percussion/Palpation: + abdomen tender and abdomen soft; no guarding and abdomen not rigid Musculoskeletal: Head/Neck/Chest: normocephalic and head atraumatic Results & Data Vital Signs (Past 12 Hours) Vital Signs Temp Pulse Pulse Resp BP Pulse Ox O2 Del Method 06/18/23 07:31 37.1 C 91 H 146/71 H 95 Oxymask 06/18/23 07:18 Oxymask 06/18/23 00:52 36.7 C 91 H 20 144/70 H 95 CPAP 06/18/23 00:11 72 06/17/23 22:46 89 20 95 O2 Flow Rate FiO2 06/18/23 07:31 4 06/18/23 07:18 4 06/18/23 00:52 8 06/18/23 00:11 06/17/23 22:46 50
--- NOTE | 2023-06-18 11:21 | Hospitalist Progress Note ---
Date of Service June 18, 2023 Assessment & Plan (1) Cholecystitis with cholelithiasis: (2) MANDA on CPAP: (3) Morbid obesity with BMI of 40.0-44.9, adult: (4) Type 2 diabetes mellitus: Plan Patient is a 72-year-old female with past medical history of morbid obesity, MANDA on CPAP(6 CMS 2 at bedtime), hypertension, type 2 diabetes mellitus, dyslipidemia who is admitted for elective laparoscopic cholecystectomy with attempted intraoperative cholangiogram. Patient was seen on intial consultation in postoperative recovery room. She was on CPAP at 10 cm H2O. She was slightly sleepy but easily awake able by voice; oriented to time place and person. She denied any pain at the moment. No complaint of chest pain or shortness of breath. She wass following commands appropriately. Assessment/plan POD 1 of laparoscopic cholecystectomy with attempted cholangiogram Patient underwent laparoscopic cholecystectomy for symptomatic gallstones. Intraoperative cholangiogram was attempted; however due to very small cystic du ct not able to thread the catheter through the duct. Advancing diet as tolerated Pain control PT OT eval Morbid obesity MANDA On CPAP at 6 cmH2O at night. Continue while inpatient. baseline ABG Currently on 2L O2 Hypertension Continue on amlodipine, lisinopril Type 2 diabetes mellitus; Held home Jardiance, glimepiride. Sliding scale while inpatient. ACHS Hypoglycemia protocol Diet: Advancing as tolerated DVT prophylaxis: SCDs currently as ordered by primary team Dispo: per PT/OT recs Thank you for this consultation. We will follow the patient with you during their hospital stay. You can reach a member of the [facility] Hospitalist Team 17/09 via the hospitalist role on tiger text. Admission and Anticipated Discharge Date Admission Date: June 17, 2023 Subjective pt seen in the AM. Was on 2L. noted abdominal pain post op but controlled. States SOB noted with movements. Review of Systems Review of Systems: All systems reviewed & are unremarkable except as noted in Subjective Physical Exam Physical Exam: General: Alert, oriented. No acute distress Psych: Appropriate mood and affect HEENT: NC/AT CV: RRR Resp: , no increased effort of breathing. Abdomen: soft, tender Results & Data Results & Data Vital Signs (Past 12 Hours) Vital Signs Temp Pulse Pulse Resp BP Pulse Ox O2 Del Method 06/18/23 11:12 36.9 C 78 146/76 H 93 Oxymask 06/18/23 08:00 66 06/18/23 07:31 37.1 C 91 H 146/71 H 95 Oxymask 06/18/23 07:18 Oxymask 06/18/23 00:52 36.7 C 91 H 20 144/70 H 95 CPAP 06/18/23 00:11 72 O2 Flow Rate 06/18/23 11:12 3 06/18/23 08:00 06/18/23 07:31 4 06/18/23 07:18 4 06/18/23 00:52 8 06/18/23 00:11
[2023-06-18] MEDS ORDERED: ARTIFICIAL TEARS OP PRN (16:06)
[2023-06-18] MEDS: oxyCODONE/ACETAMINOPHEN 5mg/325mg TAB PO PRN (21:53)
[2023-06-18] MEDS: ONDANSETRON INJ 2 MG/ML 2 ML VIAL IV PRN (22:00)
[2023-06-19 06:20] LABS: Hemoglobin 13.1 g/dl (12.0-16.0); Mean Corpuscular Hemoglobin 29.8 pg (25.0-34.0); Mean Corpuscular Volume 93.2 fL (80.0-100.0); Mean Platelet Volume 9.3 fL (9.4-12.4); Platelet Count 212 K/uL (130-400); RDW Coefficient of Variation 12.5 % (11.5-14.5); RDW Standard Deviation 43.1 fL (36.4-46.3); White Blood Count 7.82 K/ul (4.8-10.8)
[2023-06-19 06:35] LABS: Albumin Globulin Ratio 1.3 (0.9-2); Albumin Level 3.8 gm/dl (3.4-5.0); BUN Creatinine Ratio 24.5 (10-20); Bilirubin,Total 2.2 mg/dl (0.2-1.0); Calcium 9.1 mg/dl (8.6-10.3); Creatinine Clr Calc Pharmacy 120.3 ml/min; Est GFR (African American) 110.7 ml/min; Est GFR (Non-African American) 95.5 ml/min; Globulin 2.9 gm/dl (2.5-4.0); Phosphorus 2.7 mg/dl (2.5-4.9); Potassium 3.9 mmol/L (3.5-5.1); Total Protein 6.7 gm/dl (6.0-8.3)
--- NOTE | 2023-06-19 07:25 | Surgery Progress Note ---
Date of Service June 19, 2023 Assessment & Plan (1) Cholelithiasis: Plan: wean O2 discharge today Admission and Anticipated Discharge Date Admission Date: June 17, 2023 Subjective pain controlled ambulate in halls wean O2 discharge Review of Systems Constitutional: no fever and no chills Respiratory: + dyspnea on exertion; no cough Cardiovascular: no chest pain Gastrointestinal: + abdominal pain; no nausea, no vomiting and no change in bowel habits Genitourinary: no dysuria Physical Exam Constitutional: WD/WN, vitals as above Respiratory: normal respiratory effort, lungs clear to auscultation Cardiovascular: RRR, no murmur, no edema Gastrointestinal (Abdomen): Inspection/Auscultation: abdomen normal to inspection, normal bowel sounds and + abdominal surgical incision; abdomen not distended Percussion/Palpation: + abdomen tender and abdomen soft; no guarding and abdomen not rigid Skin: no rashes, warm and dry Results & Data Vital Signs (Past 12 Hours) Vital Signs Temp Pulse Pulse Resp BP Pulse Ox O2 Del Method 06/19/23 07:13 99 H 06/19/23 03:40 36.9 C 69 18 134/74 93 Nasal Cannula 06/19/23 01:20 36.7 C 77 18 106/62 92 Nasal Cannula 06/18/23 22:23 77 06/18/23 20:18 36.8 C 85 20 125/79 94 Nasal Cannula 06/18/23 20:00 Nasal Cannula O2 Flow Rate 06/19/23 07:13 06/19/23 03:40 2 06/19/23 01:20 2 06/18/23 22:23 06/18/23 20:18 2 06/18/23 20:00 2
[2023-06-19] MEDS: oxyCODONE/ACETAMINOPHEN 5mg/325mg TAB PO PRN (07:54)
--- NOTE | 2023-06-19 10:30 | Hospitalist Progress Note ---
Date of Service June 19, 2023 Assessment & Plan (1) Cholecystitis with cholelithiasis: (2) MANDA on CPAP: (3) Morbid obesity with BMI of 40.0-44.9, adult: (4) Type 2 diabetes mellitus: Plan 72 yo F with hx of of morbid obesity, MANDA on CPAP(6 CMS 2 at bedtime), hypertension, type 2 diabetes mellitus, dyslipidemia who is admitted for elective laparoscopic cholecystectomy with attempted intraoperative cholangiogram. Patient was seen on initial consultation in postoperative recovery room. She was on CPAP at 10 cm H2O. She was slightly sleepy but easily awake able by voice; oriented to time place and person. She denied any pain at the moment. No complaint of chest pain or shortness of breath. She wass following commands appropriately. Assessment/plan S/p laparoscopic cholecystectomy with attempted cholangiogram Patient underwent laparoscopic cholecystectomy for symptomatic gallstones. Intraoperative cholangiogram was attempted; however due to very small cystic duct not able to thread the catheter through the duct. Advancing diet as tolerated Pain control PT OT eval Morbid obesity MANDA On CPAP at 6 cmH2O at night. Continue while inpatient. baseline ABG Currently weaned down to 1L O2 Encourage incentive spirometer, 2 step prior to DC Hypertension Continue on amlodipine, lisinopril Type 2 diabetes mellitus; Held home Jardiance, glimepiride. Sliding scale while inpatient. ACHS Hypoglycemia protocol Diet: Advancing as tolerated DVT prophylaxis: SCDs currently as ordered by primary team Dispo: per PT/OT recs Thank you for this consultation. We will follow the patient with you during their hospital stay. You can reach a member of the [facility] Hospitalist Team 17/09 via the hospitalist role on tiger text. Admission and Anticipated Discharge Date Admission Date: June 17, 2023 Subjective pt seen in follow up of med consult s/p cholecystectomy currently on 1L of suppl. O2, sitting in the chair. pain controlled No spirometer at the bedside - discussed w/ RN plan to dc home per surgery - will obtain 2 step now no fever, chills, chest pain Review of Systems Review of Systems: All systems reviewed & are unremarkable except as noted in Subjective Physical Exam Physical Exam: General: Alert, oriented. No acute distress HEENT: NC/AT CV: RRR Resp: decreased breath sounds, no increased effort of breathing. on suppl. O2 1L Abdomen: soft, mildly distended abdomen, minimally tender to palpation Extremities: moving extremities Results & Data Results & Data Vital Signs (Past 12 Hours) Vital Signs Temp Pulse Pulse Resp BP Pulse Ox O2 Del Method 06/19/23 07:45 36.8 C 86 20 131/77 92 Room Air 06/19/23 07:13 99 H 06/19/23 03:40 36.9 C 69 18 134/74 93 Nasal Cannula 06/19/23 01:20 36.7 C 77 18 106/62 92 Nasal Cannula O2 Flow Rate 06/19/23 07:45 06/19/23 07:13 06/19/23 03:40 2 06/19/23 01:20 2 Laboratory Results 06/19/23 06/18/23 06/18/23 Range/Units 05:52 21:35 17:18 WBC 7.82 (4.8-10.8) K/ul RBC 4.40 (4.20-5.40) M/uL Hgb 13.1 (12.0-16.0) g/dl Hct 41.0 (37.0-47.0) % MCV 93.2 (80.0-100.0) fL MCH 29.8 (25.0-34.0) pg MCHC 32.0 (32.0-36.0) g/dL RDW Std Deviation 43.1 (36.4-46.3) fL RDW Coeff of Ramos 12.5 (11.5-14.5) % Plt Count 212 (130-400) K/uL MPV 9.3 L (9.4-12.4) fL Sodium 135 L (136-145) mmol/L Potassium 3.9 (3.5-5.1) mmol/L Chloride 100 (98-107) mmol/L Carbon Dioxide 28 (21-32) mmol/L Anion Gap 7 (3-11) BUN 13 (6-23) mg/dl Creatinine 0.53 L (0.6-1.2) mg/dl Est Cr Clr Drug Dosing 120.3 ml/min Est GFR ( Amer) 110.7 ml/min Est GFR (Non-Af Amer) 95.5 ml/min BUN/Creatinine Ratio 24.5 H (10-20) Glucose 122 H (70-99(Fasting)) mg/dl POC Glucose 173 H 115 H (70-99) mg/dl Calcium 9.1 (8.6-10.3) mg/dl Phosphorus 2.7 (2.5-4.9) mg/dl Magnesium 2.0 (1.7-2.4) mg/dl Total Bilirubin 2.2 H D (0.2-1.0) mg/dl AST 42 H (13-39) U/L ALT 40 (7-52) U/L Alkaline Phosphatase 84 (34-104) U/L Total Protein 6.7 (6.0-8.3) gm/dl Albumin 3.8 (3.4-5.0) gm/dl Globulin 2.9 (2.5-4.0) gm/dl Albumin/Globulin Ratio 1.3 (0.9-2) 06/18/23 Range/Units 11:48 WBC (4.8-10.8) K/ul RBC (4.20-5.40) M/uL Hgb (12.0-16.0) g/dl Hct (37.0-47.0) % MCV (80.0-100.0) fL MCH (25.0-34.0) pg MCHC (32.0-36.0) g/dL RDW Std Deviation (36.4-46.3) fL RDW Coeff of Ramos (11.5-14.5) % Plt Count (130-400) K/uL MPV (9.4-12.4) fL Sodium (136-145) mmol/L Potassium (3.5-5.1) mmol/L Chloride (98-107) mmol/L Carbon Dioxide (21-32) mmol/L Anion Gap (3-11) BUN (6-23) mg/dl Creatinine (0.6-1.2) mg/dl Est Cr Clr Drug Dosing ml/min Est GFR ( Amer) ml/min Est GFR (Non-Af Amer) ml/min BUN/Creatinine Ratio (10-20) Glucose (70-99(Fasting)) mg/dl POC Glucose 121 H (70-99) mg/dl Calcium (8.6-10.3) mg/dl Phosphorus (2.5-4.9) mg/dl Magnesium (1.7-2.4) mg/dl Total Bilirubin (0.2-1.0) mg/dl AST (13-39) U/L ALT (7-52) U/L Alkaline Phosphatase (34-104) U/L Total Protein (6.0-8.3) gm/dl Albumin (3.4-5.0) gm/dl Globulin (2.5-4.0) gm/dl Albumin/Globulin Ratio (0.9-2) Medications Administered Current Inpatient Medications Amlodipine Besylate (Amlodipine Besylate 5 Mg Tab) 10 mg PO QAM [facility] Stop: 07/18/23 08:59 Last Admin: 06/19/23 07:51 Dose: 10 mg Artificial Tears (Artificial Tears) 1 drops OP QID PRN PRN Reason: Dryness Stop: 07/18/23 16:04 Cetirizine HCl (Cetirizine Hcl 10 Mg Tablet) 10 mg PO QAM [facility] Stop: 07/18/23 08:59 Last Admin: 06/19/23 07:51 Dose: 10 mg Dextrose (Dextrose 50% 50 Ml Syringe) 25 - 50 ml IV UD PRN; Protocol PRN Reason: Hypoglycemia Protocol Stop: 07/17/23 14:12 Glucagon (Glucagon For Inj 1 Mg Vial) 1 mg SQ UD PRN; Protocol PRN Reason: Hypoglycemia Protocol Stop: 07/17/23 14:12 Glucose (Glucose 10 Tab/Tube) 4 - 8 tab PO UD PRN; Protocol PRN Reason: Hypoglycemia Treatment Stop: 07/17/23 14:12 Glucose (Glucose 40% Gel 15 Gm Tube) 15 - 30 gm PO UD PRN; Protocol PRN Reason: Hypoglycemia Protocol Stop: 07/17/23 14:12 Promethazine HCl 12.5 mg/ (Sodium Chloride) 50.5 mls @ 204 mls/hr IV Q6H PRN PRN Reason: Nausea And Vomiting Stop: 07/17/23 11:16 Insulin Aspart (Insulin Aspart Per Unit Charge) 0 units SC ACHS [facility] Stop: 07/17/23 16:29 Last Admin: 06/19/23 08:14 Dose: Not Given Insulin Glargine (Lantus Per Unit Charge) 0 - 10 units SQ BID [facility] Stop: 07/17/23 20:59 Last Admin: 06/19/23 08:14 Dose: Not Given Ioversol (Ioversol 50ml) 0 ml IV UD PRN PRN Reason: Interaction Checking Stop: 06/21/23 09:27 Lisinopril (Lisinopril 10 Mg Tab) 10 mg PO QAM [facility] Stop: 07/18/23 08:59 Last Admin: 06/19/23 07:51 Dose: 10 mg Miscellaneous (Carbohydrates For Hypoglycemia ) 15 - 30 gm PO UD PRN PRN Reason: Hypoglycemia Protocol Stop: 07/17/23 14:12 Morphine Sulfate (Morphine Sulfate 4 Mg/Ml 1 Ml Carp\Vial) 4 mg IV Q3H PRN PRN Reason: Pain (6,7,8,9,10) Stop: 07/01/23 09:54 Last Admin: 06/18/23 08:13 Dose: 4 mg Morphine Sulfate (Morphine Sulfate 2 Mg/Ml Carp) 2 mg IV Q3H PRN PRN Reason: Pain (1,2,3,4,5) & Pre PT Stop: 07/01/23 09:54 Last Admin: 06/18/23 18:32 Dose: 2 mg Nystatin (Nystatin Cr 15 Gm Tube) 1 appln EXT UD PRN PRN Reason: Rash Stop: 07/17/23 14:12 Ondansetron HCl (Ondansetron Inj 2 Mg/Ml 2 Ml Vial) 4 mg IV Q4H PRN PRN Reason: Nausea And Vomiting Stop: 07/17/23 11:16 Last Admin: 06/18/23 22:00 Dose: 4 mg Oxycodone/Acetaminophen (Oxycodone/Acetaminophen 5mg/325mg Tab) 2 tab PO Q4H PRN PRN Reason: SEVERE Pain (7,8,9,10) Stop: 07/01/23 09:54 Last Admin: 06/19/23 07:54 Dose: 2 tab Oxycodone/Acetaminophen (Oxycodone/Acetaminophen 5mg/325mg Tab) 1 tab PO Q4H PRN PRN Reason: MODERATE Pain (4,5,6) & Pre PT Stop: 07/01/23 09:54 Last Admin: 06/18/23 21:53 Dose: 1 tab Pantoprazole Sodium (Pantoprazole 40 Mg Tab) 40 mg PO QAM [facility] Stop: 07/18/23 08:59 Last Admin: 06/19/23 07:50 Dose: 40 mg Rosuvastatin Calcium (Rosuvastatin Calcium 5 Mg Tab) [facility] [place] Stop: 07/18/23 08:59 Last Admin: 06/19/23 07:50 Dose: 5 mg Vitamin D (Cholecalciferol 25 Mcg (1000 Units) Tab) 25 mcg PO [facility] Stop: 07/18/23 08:59 Last Admin: 06/19/23 07:50 Dose: 25 mcg
[2023-06-19] MEDS: PROMETHAZINE HCL 12.5 MG in SODIUM CHLORIDE 0.9% 50 ML IV PRN (15:58)
[2023-06-19] MEDS: POLYETHYLENE (MIRALAX) 17 GM PACK PO PRN (18:22)
[2023-06-19] MEDS: SIMETHICONE 80 MG CHEW PO PRN (20:13)
[2023-06-20 05:08] LABS: Hematocrit (blood only) 41.7 % (37.0-47.0); Hemoglobin 13.4 g/dl (12.0-16.0); Mean Corpuscular Hemoglobin 29.5 pg (25.0-34.0); Mean Corpuscular Hgb Conc 32.1 g/dL (32.0-36.0); Mean Corpuscular Volume 91.9 fL (80.0-100.0); Mean Platelet Volume 9.5 fL (9.4-12.4); Platelet Count 259 K/uL (130-400); RDW Coefficient of Variation 12.5 % (11.5-14.5); RDW Standard Deviation 41.8 fL (36.4-46.3); Red Blood Count 4.54 M/uL (4.20-5.40); White Blood Count 9.53 K/ul (4.8-10.8)
[2023-06-20 05:29] LABS: Albumin Globulin Ratio 1.3 (0.9-2); Albumin Level 3.9 gm/dl (3.4-5.0); BUN Creatinine Ratio 33.3 (10-20); Bilirubin,Total 1.9 mg/dl (0.2-1.0); Calcium 9.6 mg/dl (8.6-10.3); Creatinine Clr Calc Pharmacy 75.9 ml/min; Est GFR (Non-African American) 69.9 ml/min; Magnesium 2.1 mg/dl (1.7-2.4); Phosphorus 3.8 mg/dl (2.5-4.9); Potassium 3.7 mmol/L (3.5-5.1); Total Protein 6.9 gm/dl (6.0-8.3)
--- NOTE | 2023-06-20 07:52 | XRay Report ---
KUB HISTORY: ? ileus COMPARISON: KUB 04/25/2023. FINDINGS: Distended gas-filled loops of large and small bowel seen throughout the abdomen. There is g as within the rectum. Moderate well-formed stool seen throughout the colon. Prior cholecystectomy. N o renal calculi. No ureteral calculi. No pneumoperitoneum or pneumatosis. IMPRESSION: Distended gas-filled loops of large and small bowel seen throughout the abdomen. This favors an ileus . Continued follow-up recommended to exclude the less likely possibility of a partial bowel obstructi on. ACT 112: Negative or not required by law. Electronically signed by: Hemant Davis M.D. 06/20/2023 7:49 AM
--- NOTE | 2023-06-20 08:44 | Hospitalist Progress Note ---
Date of Service June 20, 2023 Assessment & Plan (1) Cholecystitis with cholelithiasis: (2) MANDA on CPAP: (3) Morbid obesity with BMI of 40.0-44.9, adult: (4) Type 2 diabetes mellitus: Plan 72 yo F with hx of of morbid obesity, MANDA on CPAP(6 CMS 2 at bedtime), hypertension, type 2 diabetes mellitus, dyslipidemia who is admitted for elective laparoscopic cholecystectomy with attempted intraoperative cholangiogram. Patient was seen on initial consultation in postoperative recovery room. She was on CPAP at 10 cm H2O. She was slightly sleepy but easily awake able by voice; oriented to time place and person. She denied any pain at the moment. No complaint of chest pain or shortness of breath. She wass following commands appropriately. Assessment/plan S/p laparoscopic cholecystectomy with attempted cholangiogram post-op Ileus Patient underwent laparoscopic cholecystectomy for symptomatic gallstones. Intraoperative cholangiogram was attempted; however due to very small cystic duct not able to thread the catheter through the duct. Advancing diet as tolerated Pain control PT OT philip Had emesis on 06/18 PM - KUB obtained - Distended gas-filled loops of large and small bowel seen throughout the abdomen. This favors an ileus. Continued follow- up recommended to exclude the less likely possibility of a partial bowel obstruction. Surgeon contacted and evaluated the pt today- plan for NGT Morbid obesity MANDA On CPAP at 6 cmH2O at night. Continue while inpatient. baseline ABG Encourage incentive spirometer, 2 step prior to DC Hypertension Continue on amlodipine, lisinopril Type 2 diabetes mellitus; Held home Jardiance, glimepiride. Sliding scale while inpatient. ACHS Hypoglycemia protocol Diet: Advancing as tolerated DVT prophylaxis: SCDs currently as ordered by primary team Dispo: per PT/OT recs Thank you for this consultation. We will follow the patient with you during their hospital stay. You can reach a member of the [facility] Hospitalist Team 17/09 via the hospitalist role on tiger text. Admission and Anticipated Discharge Date Admission Date: June 17, 2023 Subjective pt seen in follow up of med consult s/p cholecystectomy Abdomen distended and pt vomited last PM - KUB ordered last evening. KUB concerning for ileus. Surgeon contacted this AM. Currently pt is laying in bed in NAD. No fever, chills, chest pain, shortness of breath, she is using suppl. O2 She has abdominal discomfort. Seen by surgery and NGT discussed, plan to place NGT Review of Systems Review of Systems: All systems reviewed & are unremarkable except as noted in Subjective Physical Exam Physical Exam: General: Alert, oriented. No acute distress HEENT: NC/AT CV: RRR Resp: decreased breath sounds, no increased effort of breathing. on suppl. O2 Abdomen: soft, +distended abdomen, mildly tender to palpation Extremities: moving extremities Results & Data Results & Data Vital Signs (Past 12 Hours) Vital Signs Temp Pulse Pulse Resp BP Pulse Ox O2 Del Method 06/20/23 07:53 36.7 C 88 20 136/79 93 Nasal Cannula 06/20/23 07:27 79 06/20/23 03:44 36.7 C 84 18 134/79 92 Nasal Cannula 06/19/23 23:32 36.6 C 78 18 136/80 92 Room Air 06/19/23 21:58 76 O2 Flow Rate 06/20/23 07:53 2 06/20/23 07:27 06/20/23 03:44 2 06/19/23 23:32 06/19/23 21:58 Laboratory Results 06/20/23 06/20/23 06/19/23 Range/Units 08:05 04:27 20:04 WBC 9.53 (4.8-10.8) K/ul RBC 4.54 (4.20-5.40) M/uL Hgb 13.4 (12.0-16.0) g/dl Hct 41.7 (37.0-47.0) % MCV 91.9 (80.0-100.0) fL MCH 29.5 (25.0-34.0) pg MCHC 32.1 (32.0-36.0) g/dL RDW Std Deviation 41.8 (36.4-46.3) fL RDW Coeff of Ramos 12.5 (11.5-14.5) % Plt Count 259 (130-400) K/uL MPV 9.5 (9.4-12.4) fL Sodium 134 L (136-145) mmol/L Potassium 3.7 (3.5-5.1) mmol/L Chloride 98 (98-107) mmol/L Carbon Dioxide 26 (21-32) mmol/L Anion Gap 10 (3-11) BUN 28 H (6-23) mg/dl Creatinine 0.84 D (0.6-1.2) mg/dl Est Cr Clr Drug Dosing 75.9 ml/min Est GFR ( Amer) 81.0 ml/min Est GFR (Non-Af Amer) 69.9 ml/min BUN/Creatinine Ratio 33.3 H (10-20) Glucose 124 H (70-99(Fasting)) mg/dl POC Glucose 135 H 139 H (70-99) mg/dl Calcium 9.6 (8.6-10.3) mg/dl Phosphorus 3.8 D (2.5-4.9) mg/dl Magnesium 2.1 (1.7-2.4) mg/dl Total Bilirubin 1.9 H (0.2-1.0) mg/dl AST 35 (13-39) U/L ALT 38 (7-52) U/L Alkaline Phosphatase 120 H (34-104) U/L Total Protein 6.9 (6.0-8.3) gm/dl Albumin 3.9 (3.4-5.0) gm/dl Globulin 3.0 (2.5-4.0) gm/dl Albumin/Globulin Ratio 1.3 (0.9-2) 06/19/23 06/19/23 Range/Units 17:02 11:59 WBC (4.8-10.8) K/ul RBC (4.20-5.40) M/uL Hgb (12.0-16.0) g/dl Hct (37.0-47.0) % MCV (80.0-100.0) fL MCH (25.0-34.0) pg MCHC (32.0-36.0) g/dL RDW Std Deviation (36.4-46.3) fL RDW Coeff of Ramos (11.5-14.5) % Plt Count (130-400) K/uL MPV (9.4-12.4) fL Sodium (136-145) mmol/L Potassium (3.5-5.1) mmol/L Chloride (98-107) mmol/L Carbon Dioxide (21-32) mmol/L Anion Gap (3-11) BUN (6-23) mg/dl Creatinine (0.6-1.2) mg/dl Est Cr Clr Drug Dosing ml/min Est GFR ( Amer) ml/min Est GFR (Non-Af Amer) ml/min BUN/Creatinine Ratio (10-20) Glucose (70-99(Fasting)) mg/dl POC Glucose 161 H 125 H (70-99) mg/dl Calcium (8.6-10.3) mg/dl Phosphorus (2.5-4.9) mg/dl Magnesium (1.7-2.4) mg/dl Total Bilirubin (0.2-1.0) mg/dl AST (13-39) U/L ALT (7-52) U/L Alkaline Phosphatase (34-104) U/L Total Protein (6.0-8.3) gm/dl Albumin (3.4-5.0) gm/dl Globulin (2.5-4.0) gm/dl Albumin/Globulin Ratio (0.9-2) Medications Administered Current Inpatient Medications Amlodipine Besylate (Aml[facility]ipine Besylate 5 Mg Tab) [facility] [place] [place] Stop: 07/18/23 08:59 Last Admin: 06/20/23 07:57 Dose: 10 mg Artificial Tears (Artificial Tears) 1 drops OP QID PRN PRN Reason: Dryness Stop: 07/18/23 16:04 Cetirizine HCl (Cetirizine Hcl 10 Mg Tablet) [address] [facility] Stop: 07/18/23 08:59 Last Admin: 06/20/23 07:57 Dose: 10 mg Dextrose (Dextrose 50% 50 Ml Syringe) 25 - 50 ml IV UD PRN; Protocol PRN Reason: Hypoglycemia Protocol Stop: 07/17/23 14:12 Glucagon (Glucagon For Inj 1 Mg Vial) 1 mg SQ UD PRN; Protocol PRN Reason: Hypoglycemia Protocol Stop: 07/17/23 14:12 Glucose (Glucose 10 Tab/Tube) 4 - 8 tab PO UD PRN; Protocol PRN Reason: Hypoglycemia Treatment Stop: 07/17/23 14:12 Glucose (Glucose 40% Gel 15 Gm Tube) 15 - 30 gm PO UD PRN; Protocol PRN Reason: Hypoglycemia Protocol Stop: 07/17/23 14:12 Promethazine HCl 12.5 mg/ (Sodium Chloride) 50.5 mls @ 204 mls/hr IV Q6H PRN PRN Reason: Nausea And Vomiting Stop: 07/17/23 11:16 Last Infusion: 06/19/23 16:23 Dose: Infused Insulin Aspart (Insulin Aspart Per Unit Charge) 0 units SC ACHS [facility] Stop: 07/17/23 16:29 Last Admin: 06/19/23 20:14 Dose: Not Given Insulin Glargine (Lantus Per Unit Charge) 0 - 10 units SQ BID [facility] Stop: 07/17/23 20:59 Last Admin: 06/19/23 20:13 Dose: 5 units Ioversol (Ioversol 50ml) 0 ml IV UD PRN PRN Reason: Interaction Checking Stop: 06/21/23 09:27 Lisinopril (Lisinopril 10 Mg Tab) 10 mg PO QAM [facility] Stop: 07/18/23 08:59 Last Admin: 06/20/23 07:57 Dose: 10 mg Miscellaneous (Carbohydrates For Hypoglycemia ) 15 - 30 gm PO UD PRN PRN Reason: Hypoglycemia Protocol Stop: 07/17/23 14:12 Morphine Sulfate (Morphine Sulfate 4 Mg/Ml 1 Ml Carp\Vial) 4 mg IV Q3H PRN PRN Reason: Pain (6,7,8,9,10) Stop: 07/01/23 09:54 Last Admin: 06/18/23 08:13 Dose: 4 mg Morphine Sulfate (Morphine Sulfate 2 Mg/Ml Carp) 2 mg IV Q3H PRN PRN Reason: Pain (1,2,3,4,5) & Pre PT Stop: 07/01/23 09:54 Last Admin: 06/18/23 18:32 Dose: 2 mg Nystatin (Nystatin Cr 15 Gm Tube) 1 appln EXT UD PRN PRN Reason: Rash Stop: 07/17/23 14:12 Ondansetron HCl (Ondansetron Inj 2 Mg/Ml 2 Ml Vial) 4 mg IV Q4H PRN PRN Reason: Nausea And Vomiting Stop: 07/17/23 11:16 Last Admin: 06/19/23 23:17 Dose: 4 mg Oxycodone/Acetaminophen (Oxycodone/Acetaminophen 5mg/325mg Tab) 2 tab PO Q4H PRN PRN Reason: SEVERE Pain (7,8,9,10) Stop: 07/01/23 09:54 Last Admin: 06/19/23 07:54 Dose: 2 tab Oxycodone/Acetaminophen (Oxycodone/Acetaminophen 5mg/325mg Tab) 1 tab PO Q4H PRN PRN Reason: MODERATE Pain (4,5,6) & Pre PT Stop: 07/01/23 09:54 Last Admin: 06/19/23 20:13 Dose: 1 tab Pantoprazole Sodium (Pantoprazole 40 Mg Tab) [facility] [place] [place] Stop: 07/18/23 08:59 Last Admin: 06/20/23 07:57 Dose: 40 mg Polyethylene Glycol (Polyethylene (Miralax) 17 Gm Pack) 17 gm PO DAILY PRN PRN Reason: Constipation Stop: 07/19/23 15:13 Last Admin: 06/19/23 18:22 Dose: 17 gm Rosuvastatin Calcium (Rosuvastatin Calcium 5 Mg Tab) [facility] [place] [place] Stop: 07/18/23 08:59 Last Admin: 06/20/23 07:57 Dose: 5 mg Simethicone (Simethicone 80 Mg Chew) 80 mg PO Q6H PRN PRN Reason: Flatulence Stop: 07/19/23 15:13 Last Admin: 06/19/23 20:13 Dose: 80 mg Vitamin D (Cholecalciferol 25 Mcg (1000 Units) Tab) 25 [facility]cg [facility] [place] [place] Stop: 07/18/23 08:59 Last Admin: 06/20/23 07:57 Dose: 25 mcg
[2023-06-20] MEDS: POTASSIUM CHLORIDE / WTR 10 MEQ/100 ML PLCT IV SCH (09:36)
[2023-06-20] MEDS: SODIUM CHLORIDE 0.9% 500 ML IV ONE (10:18)
--- NOTE | 2023-06-20 12:18 | Surgery Progress Note ---
Date of Service June 20, 2023 Assessment & Plan (1) Cholelithiasis: Plan: post op ileus place ng IVF Admission and Anticipated Discharge Date Admission Date: June 17, 2023 Subjective N/V ileus pain controlled Review of Systems Constitutional: no fever and no chills Respiratory: no cough and no dyspnea Cardiovascular: no chest pain Gastrointestinal: + abdominal pain, + nausea, + vomiting a nd + change in bowel habits Genitourinary: no dysuria Physical Exam Constitutional: WD/WN, vitals as above Respiratory: normal respiratory effort Cardiovascular: RRR, no murmur, no edema Gastrointestinal (Abdomen): Inspection/Auscultation: abdomen normal to inspection, + abdomen distended and normal bowel sounds Percussion/Palpation: + abdomen tender and abdomen soft; no guarding and abdomen not rigid Musculoskeletal: Head/Neck/Chest: normocephalic and head atraumatic Results & Data Vital Signs (Past 12 Hours) Vital Signs Temp Pulse Pulse Resp BP Pulse Ox O2 Del Method 06/20/23 11:47 36.4 C L 90 18 133/76 94 Nasal Cannula 06/20/23 08:47 Nasal Cannula 06/20/23 07:53 36.7 C 88 20 136/79 93 Nasal Cannula 06/20/23 07:27 79 06/20/23 03:44 36.7 C 84 18 134/79 92 Nasal Cannula O2 Flow Rate 06/20/23 11:47 2 06/20/23 08:47 2 06/20/23 07:53 2 06/20/23 07:27 06/20/23 03:44 2
[2023-06-20] MEDS: LACTATED RINGER'S 1,000 ML IV SCH (13:56)
--- NOTE | 2023-06-20 16:24 | XRay Report ---
XR chest 1V portable CLINICAL HISTORY: confirm position of NGT COMPARISON STUDY: Chest radiograph June 17, 2023. FINDINGS: Low lung volumes are again noted. Bibasilar opacities favor atelectasis. There is no pneumo thorax. Suspected trace left pleural effusion. No evidence for pulmonary edema. Tip of nasogastric tu be projects over the pylorus. Small and large bowel dilatation is noted. This has mildly improved sin ce KUB of June 19, 2023. IMPRESSION: 1. Tip of nasogastric tube projects over the pylorus. 2. Small and large bowel dilatation partially imaged on this exam. This has mildly improved since rita or KUB. ACT 112: Negative or not required by law. Electronically signed by: Abdirahman Vergara M.D. 06/20/2023 4:22 PM
[2023-06-20] MEDS: ACETAMINOPHEN 1,000 MG/100 ML VIAL IV PRN (16:38)
[2023-06-20] MEDS ORDERED: Nursing to Pharmacy Communication ONE (17:03)
[2023-06-20] MEDS: INSULIN ASPART PER UNIT CHARGE SC SCH (17:06)
[2023-06-21 08:09] LABS: Hematocrit (blood only) 39.4 % (37.0-47.0); Hemoglobin 13.1 g/dl (12.0-16.0); Mean Corpuscular Hemoglobin 30.5 pg (25.0-34.0); Mean Corpuscular Hgb Conc 33.2 g/dL (32.0-36.0); Mean Corpuscular Volume 91.6 fL (80.0-100.0); Mean Platelet Volume 9.5 fL (9.4-12.4); Platelet Count 290 K/uL (130-400); RDW Coefficient of Variation 12.5 % (11.5-14.5); RDW Standard Deviation 42.1 fL (36.4-46.3); White Blood Count 7.51 K/ul (4.8-10.8)
[2023-06-21 08:39] LABS: Albumin Globulin Ratio 1.2 (0.9-2); Albumin Level 3.6 gm/dl (3.4-5.0); BUN Creatinine Ratio 55.6 (10-20); Bilirubin,Total 1.5 mg/dl (0.2-1.0); Calcium 8.9 mg/dl (8.6-10.3); Creatinine Clr Calc Pharmacy 117.1 ml/min; Est GFR (Non-African American) 94.9 ml/min; Globulin 3.1 gm/dl (2.5-4.0); Magnesium 1.8 mg/dl (1.7-2.4); Phosphorus 2.8 mg/dl (2.5-4.9); Total Protein 6.7 gm/dl (6.0-8.3)
--- NOTE | 2023-06-21 08:57 | Hospitalist Progress Note ---
Date of Service June 21, 2023 Assessment & Plan (1) Cholecystitis with cholelithiasis: (2) MANDA on CPAP: (3) Morbid obesity with BMI of 40.0-44.9, adult: (4) Type 2 diabetes mellitus: Plan 72 yo F with hx of of morbid obesity, MANDA on CPAP(6 CMS 2 at bedtime), hypertension, type 2 diabetes mellitus, dyslipidemia who is admitted for elective laparoscopic cholecystectomy with attempted intraoperative cholangiogram. Patient was seen on initial consultation in postoperative recovery room. She was on CPAP at 10 cm H2O. She was slightly sleepy but easily awake able by voice; oriented to time place and person. She denied any pain at the moment. No complaint of chest pain or shortness of breath. She was following commands appropriately. Assessment/plan S/p laparoscopic cholecystectomy with attempted cholangiogram post-op Ileus Patient underwent laparoscopic cholecystectomy for symptomatic gallstones. Intraoperative cholangiogram was attempted; however due to very small cystic duct not able to thread the catheter through the duct. Advancing diet as tolerated Pain control PT OT philip Had emesis on 06/18 PM - KUB obtained - Distended gas-filled loops of large and small bowel seen throughout the abdomen. This favors an ileus. Continued follow- up recommended to exclude the less likely possibility of a partial bowel obstruction. NGT placed yesterday (06/19), abdomen much less distended Morbid obesity MANDA On CPAP at 6 cmH2O at night. Continue while inpatient. baseline ABG Encourage incentive spirometer, 2 step prior to DC Hypertension Continue on amlodipine, lisinopril Type 2 diabetes mellitus; Held home Jardiance, glimepiride. Sliding scale while inpatient. ACHS Hypoglycemia protocol Diet: Advancing as tolerated DVT prophylaxis: SCDs currently as ordered by primary team Dispo: per PT/OT recs Thank you for this consultation. We will follow the patient with you during their hospital stay. You can reach a member of the [facility] Hospitalist Team 17/09 via the hospitalist role on tiger text. Admission and Anticipated Discharge Date Admission Date: June 20, 2023 Subjective Pt seen in follow up of med consult s/p cholecystectomy, now w/ post-op ileus NGT placed yesterday, abdomen less distended. Currently pt is sitting up in chair in NAD. No fever, chills, chest pain, shortness of breath, she is using suppl. O2 Review of Systems Review of Systems: All systems reviewed & are unremarkable except as noted in Subjective Physical Exam Physical Exam: General: Alert, oriented. No acute distress HEENT: NC/AT CV: RRR Resp: decreased breath sounds, no increased effort of breathing. on suppl. O2 Abdomen: soft, +much less distended abdomen, mildly tender to palpation Extremities: moving extremities Results & Data Results & Data Vital Signs (Past 12 Hours) Vital Signs Temp Pulse Pulse Resp BP Pulse Ox O2 Del Method 06/21/23 08:04 36.9 C 94 H 16 125/77 91 Nasal Cannula 06/21/23 07:50 Nasal Cannula 06/21/23 07:18 87 06/21/23 03:07 36.7 C 90 18 142/75 H 92 Nasal Cannula 06/20/23 22:10 36.7 C 92 H 20 137/76 93 Nasal Cannula 06/20/23 21:51 90 O2 Flow Rate 06/21/23 08:04 2 06/21/23 07:50 2 06/21/23 07:18 06/21/23 03:07 2 06/20/23 22:10 2 06/20/23 21:51 Laboratory Results 06/21/23 06/21/23 06/20/23 Range/Units 07:38 05:25 22:38 WBC 7.51 (4.8-10.8) K/ul RBC 4.30 (4.20-5.40) M/uL Hgb 13.1 (12.0-16.0) g/dl Hct 39.4 (37.0-47.0) % MCV 91.6 (80.0-100.0) fL MCH 30.5 (25.0-34.0) pg MCHC 33.2 (32.0-36.0) g/dL RDW Std Deviation 42.1 (36.4-46.3) fL RDW Coeff of Ramos 12.5 (11.5-14.5) % Plt Count 290 (130-400) K/uL MPV 9.5 (9.4-12.4) fL Sodium 137 (136-145) mmol/L Potassium 4.0 (3.5-5.1) mmol/L Chloride 101 (98-107) mmol/L Carbon Dioxide 26 (21-32) mmol/L Anion Gap 10 (3-11) BUN 30 H (6-23) mg/dl Creatinine 0.54 L D (0.6-1.2) mg/dl Est Cr Clr Drug Dosing 117.1 ml/min Est GFR ( Amer) 110.0 ml/min Est GFR (Non-Af Amer) 94.9 ml/min BUN/Creatinine Ratio 55.6 H (10-20) Glucose 123 H (70-99(Fasting)) mg/dl POC Glucose 112 H 93 (70-99) mg/dl Calcium 8.9 (8.6-10.3) mg/dl Phosphorus 2.8 D (2.5-4.9) mg/dl Magnesium 1.8 (1.7-2.4) mg/dl Total Bilirubin 1.5 H (0.2-1.0) mg/dl AST 27 (13-39) U/L ALT 31 (7-52) U/L Alkaline Phosphatase 121 H (34-104) U/L Total Protein 6.7 (6.0-8.3) gm/dl Albumin 3.6 (3.4-5.0) gm/dl Globulin 3.1 (2.5-4.0) gm/dl Albumin/Globulin Ratio 1.2 (0.9-2) 06/20/23 06/20/23 Range/Units 16:52 12:01 WBC (4.8-10.8) K/ul RBC (4.20-5.40) M/uL Hgb (12.0-16.0) g/dl Hct (37.0-47.0) % MCV (80.0-100.0) fL MCH (25.0-34.0) pg MCHC (32.0-36.0) g/dL RDW Std Deviation (36.4-46.3) fL RDW Coeff of Ramos (11.5-14.5) % Plt Count (130-400) K/uL MPV (9.4-12.4) fL Sodium (136-145) mmol/L Potassium (3.5-5.1) mmol/L Chloride (98-107) mmol/L Carbon Dioxide (21-32) mmol/L Anion Gap (3-11) BUN (6-23) mg/dl Creatinine (0.6-1.2) mg/dl Est Cr Clr Drug Dosing ml/min Est GFR ( Amer) ml/min Est GFR (Non-Af Amer) ml/min BUN/Creatinine Ratio (10-20) Glucose (70-99(Fasting)) mg/dl POC Glucose 126 H 121 H (70-99) mg/dl Calcium (8.6-10.3) mg/dl Phosphorus (2.5-4.9) mg/dl Magnesium (1.7-2.4) mg/dl Total Bilirubin (0.2-1.0) mg/dl AST (13-39) U/L ALT (7-52) U/L Alkaline Phosphatase (34-104) U/L Total Protein (6.0-8.3) gm/dl Albumin (3.4-5.0) gm/dl Globulin (2.5-4.0) gm/dl Albumin/Globulin Ratio (0.9-2) Medications Administered Current Inpatient Medications Amlodipine Besylate (A[facility]odipine Besylate 5 Mg Tab) [facility] [place] Stop: 07/18/23 08:59 Last Admin: 06/21/23 08:38 Dose: 10 mg Artificial Tears (Artificial Tears) 1 drops OP QID PRN PRN Reason: Dryness Stop: 07/18/23 16:04 Cetirizine HCl (Cetirizine Hcl 10 Mg Tablet) 10 mg PO [facility] Stop: 07/18/23 08:59 Last Admin: 06/21/23 08:38 Dose: 10 mg Dextrose (Dextrose 50% 50 Ml Syringe) 25 - 50 ml IV UD PRN; Protocol PRN Reason: Hypoglycemia Protocol Stop: 07/17/23 14:12 Glucagon (Glucagon For Inj 1 Mg Vial) 1 mg SQ UD PRN; Protocol PRN Reason: Hypoglycemia Protocol Stop: 07/17/23 14:12 Glucose (Glucose 10 Tab/Tube) 4 - 8 tab PO UD PRN; Protocol PRN Reason: Hypoglycemia Treatment Stop: 07/17/23 14:12 Glucose (Glucose 40% Gel 15 Gm Tube) 15 - 30 gm PO UD PRN; Protocol PRN Reason: Hypoglycemia Protocol Stop: 07/17/23 14:12 Promethazine HCl 12.5 mg/ (Sodium Chloride) 50.5 mls @ 204 mls/hr IV Q6H PRN PRN Reason: Nausea And Vomiting Stop: 07/17/23 11:16 Last Infusion: 06/19/23 16:23 Dose: Infused Lactated Ringer's (Lr) 1,000 mls @ 100 mls/hr IV .Q10H [facility] Stop: 07/20/23 12:14 Last Admin: 06/21/23 08:37 Dose: 100 mls/hr Acetaminophen (Ofirmev) 1,000 mg in 100 mls @ 400 mls/hr IV Q8H PRN PRN Reason: Pain Stop: 06/23/23 15:26 Last Infusion: 06/20/23 17:04 Dose: Infused Insulin Aspart (Insulin Aspart Per Unit Charge) 0 units SC Q6 [facility] Stop: 07/17/23 16:29 Last Admin: 06/21/23 05:44 Dose: Not Given Insulin Glargine (Lantus Per Unit Charge) 0 - 10 units SQ BID [facility] Stop: 07/17/23 20:59 Last Admin: 06/21/23 08:36 Dose: Not Given Ioversol (Ioversol 50ml) 0 ml IV UD PRN PRN Reason: Interaction Checking Stop: 06/21/23 09:27 Lisinopril (Lisinopril 10 Mg Tab) 10 mg PO QAM [facility] Stop: 07/18/23 08:59 Last Admin: 06/21/23 08:38 Dose: 10 mg Miscellaneous (Carbohydrates For Hypoglycemia ) 15 - 30 gm PO UD PRN PRN Reason: Hypoglycemia Protocol Stop: 07/17/23 14:12 Morphine Sulfate (Morphine Sulfate 4 Mg/Ml 1 Ml Carp\Vial) 4 mg IV Q3H PRN PRN Reason: Pain (6,7,8,9,10) Stop: 07/01/23 09:54 Last Admin: 06/21/23 02:27 Dose: 4 mg Morphine Sulfate (Morphine Sulfate 2 Mg/Ml Carp) 2 mg IV Q3H PRN PRN Reason: Pain (1,2,3,4,5) & Pre PT Stop: 07/01/23 09:54 Last Admin: 06/18/23 18:32 Dose: 2 mg Nystatin (Nystatin Cr 15 Gm Tube) 1 appln EXT UD PRN PRN Reason: Rash Stop: 07/17/23 14:12 Ondansetron HCl (Ondansetron Inj 2 Mg/Ml 2 Ml Vial) 4 mg IV Q4H PRN PRN Reason: Nausea And Vomiting Stop: 07/17/23 11:16 Last Admin: 06/20/23 13:21 Dose: 4 mg Oxycodone/Acetaminophen (Oxycodone/Acetaminophen 5mg/325mg Tab) 2 tab PO Q4H PRN PRN Reason: SEVERE Pain (7,8,9,10) Stop: 07/01/23 09:54 Last Admin: 06/20/23 09:29 Dose: 2 tab Oxycodone/Acetaminophen (Oxycodone/Acetaminophen 5mg/325mg Tab) 1 tab PO Q4H PRN PRN Reason: MODERATE Pain (4,5,6) & Pre PT Stop: 07/01/23 09:54 Last Admin: 06/19/23 20:13 Dose: 1 tab Pantoprazole Sodium (Pantoprazole 40 Mg Tab) 40 mg PO [facility] Stop: 07/18/23 08:59 Last Admin: 06/21/23 08:38 Dose: 40 mg Polyethylene Glycol (Polyethylene (Miralax) 17 Gm Pack) 17 gm PO DAILY PRN PRN Reason: Constipation Stop: 07/19/23 15:13 Last Admin: 06/19/23 18:22 Dose: 17 gm Rosuvastatin Calcium (Rosuvastatin Calcium 5 Mg Tab) 5 mg PO [facility] Stop: 07/18/23 08:59 Last Admin: 06/21/23 08:38 Dose: 5 mg Simethicone (Simethicone 80 Mg Chew) 80 mg PO Q6H PRN PRN Reason: Flatulence Stop: 07/19/23 15:13 Last Admin: 06/19/23 20:13 Dose: 80 mg Vitamin D (Cholecalciferol 25 Mcg (1000 Units) Tab) 25 mcg PO [facility] Stop: 07/18/23 08:59 Last Admin: 06/21/23 08:39 Dose: 25 mcg
[2023-06-21] MEDS: MAGNESIUM SULFATE / D5W 1 GM/100 ML BAG IV ONE (09:57)
[2023-06-21] MEDS ORDERED: COUGH DROP (SUGAR FREE) LOZ 24 LOZ/1 BOX BUCCAL PRN (10:02)
--- NOTE | 2023-06-21 10:15 | Surgery Progress Note ---
Date of Service June 21, 2023 Assessment & Plan (1) Cholelithiasis: Plan: POD # 4 s/p laparoscopic cholecystectomy avss still requiring 2 liters O2 via nasal cannula 150 cc output NGT + flatus no n,v Plan: continue pain management as needed throat spray for sore throat continue NGT to LIS repeat KUB today to eval bowel distention highly encouraged patient to get oob to chair and ambulate to increase GI motility Incentive spirometry continue medical management PT/OT SCDs Discussed with Dr. Cruz who agrees with above. Admission and Anticipated Discharge Date Admission Date: June 20, 2023 Subjective feeling very tired sore throat is main complaint abdominal soreness at incisions, not abdominal pain no chest pain or shortness of breath ambulated to window with OT at bedside passing little amounts of gas 3-4 times this morning, no bowel movement yet Physical Exam Constitutional: WD/WN, vitals as above + morbidly obese and + lethargic; no acute distress, not ill appearing, not combative and not diaphoretic Respiratory: normal respiratory effort; no respiratory distress, no labored breathing and no retractions Gastrointestinal (Abdomen): Inspection/Auscultation: abdomen normal to inspection, + abdomen distended (mild distention), + abdominal surgical incision (c/d/i with dermabond) and + hypoactive bowel sounds; + abnormal bowel sounds Percussion/Palpation: + abdomen tender (at incision sites ) and abdomen soft; no guarding, abdomen not rigid and abdomen not firm Skin: no rashes, warm and dry Psychiatric: Orientation: alert and oriented x 3 Results & Data Vital Signs (Past 12 Hours) Vital Signs Temp Pulse Pulse Resp BP Pulse Ox O2 Del Method 06/21/23 08:04 36.9 C 94 H 16 125/77 91 Nasal Cannula 06/21/23 07:50 Nasal Cannula 06/21/23 07:18 87 06/21/23 03:07 36.7 C 90 18 142/75 H 92 Nasal Cannula O2 Flow Rate 06/21/23 08:04 2 06/21/23 07:50 2 06/21/23 07:18 06/21/23 03:07 2 Laboratory Results 06/21/23 06/21/23 06/20/23 Range/Units 07:38 05:25 22:38 WBC 7.51 (4.8-10.8) K/ul RBC 4.30 (4.20-5.40) M/uL Hgb 13.1 (12.0-16.0) g/dl Hct 39.4 (37.0-47.0) % MCV 91.6 (80.0-100.0) fL MCH 30.5 (25.0-34.0) pg MCHC 33.2 (32.0-36.0) g/dL RDW Std Deviation 42.1 (36.4-46.3) fL RDW Coeff of Ramos 12.5 (11.5-14.5) % Plt Count 290 (130-400) K/uL MPV 9.5 (9.4-12.4) fL Sodium 137 (136-145) mmol/L Potassium 4.0 (3.5-5.1) mmol/L Chloride 101 (98-107) mmol/L Carbon Dioxide 26 (21-32) mmol/L Anion Gap 10 (3-11) BUN 30 H (6-23) mg/dl Creatinine 0.54 L D (0.6-1.2) mg/dl Est Cr Clr Drug Dosing 117.1 ml/min Est GFR ( Amer) 110.0 ml/min Est GFR (Non-Af Amer) 94.9 ml/min BUN/Creatinine Ratio 55.6 H (10-20) Glucose 123 H (70-99(Fasting)) mg/dl POC Glucose 112 H 93 (70-99) mg/dl Calcium 8.9 (8.6-10.3) mg/dl Phosphorus 2.8 D (2.5-4.9) mg/dl Magnesium 1.8 (1.7-2.4) mg/dl Total Bilirubin 1.5 H (0.2-1.0) mg/dl AST 27 (13-39) U/L ALT 31 (7-52) U/L Alkaline Phosphatase 121 H (34-104) U/L Total Protein 6.7 (6.0-8.3) gm/dl Albumin 3.6 (3.4-5.0) gm/dl Globulin 3.1 (2.5-4.0) gm/dl Albumin/Globulin Ratio 1.2 (0.9-2) 06/20/23 06/20/23 Range/Units 16:52 12:01 WBC (4.8-10.8) K/ul RBC (4.20-5.40) M/uL Hgb (12.0-16.0) g/dl Hct (37.0-47.0) % MCV (80.0-100.0) fL MCH (25.0-34.0) pg MCHC (32.0-36.0) g/dL RDW Std Deviation (36.4-46.3) fL RDW Coeff of Ramos (11.5-14.5) % Plt Count (130-400) K/uL MPV (9.4-12.4) fL Sodium (136-145) mmol/L Potassium (3.5-5.1) mmol/L Chloride (98-107) mmol/L Carbon Dioxide (21-32) mmol/L Anion Gap (3-11) BUN (6-23) mg/dl Creatinine (0.6-1.2) mg/dl Est Cr Clr Drug Dosing ml/min Est GFR ( Amer) ml/min Est GFR (Non-Af Amer) ml/min BUN/Creatinine Ratio (10-20) Glucose (70-99(Fasting)) mg/dl POC Glucose 126 H 121 H (70-99) mg/dl Calcium (8.6-10.3) mg/dl Phosphorus (2.5-4.9) mg/dl Magnesium (1.7-2.4) mg/dl Total Bilirubin (0.2-1.0) mg/dl AST (13-39) U/L ALT (7-52) U/L Alkaline Phosphatase (34-104) U/L Total Protein (6.0-8.3) gm/dl Albumin (3.4-5.0) gm/dl Globulin (2.5-4.0) gm/dl Albumin/Globulin Ratio (0.9-2)
[2023-06-21] MEDS: CHLORASEPTIC (PHENOL) 1.4% SOLN 180 ML BTL MT PRN (12:34)
--- NOTE | 2023-06-21 12:37 | XRay Report ---
KUB HISTORY: Acute generalized abdominal pain with reported ileus eval Ileus COMPARISON: 06/19/2023 FINDINGS: Surgical clips project over the upper abdomen. The enteric tube projects over the right upp er quadrant abdomen with side port in the location of the distal gastric body. Moderate fecal retenti on is most pronounced in the right hemicolon. Gaseous distention of the large bowel measures up to ap proximately 7 cm. There is overall improved gaseous distention of the large and small bowel compared to the prior study. No renal calculi. No ureteral calculi. No pneumoperitoneum or pneumatosis. No fr acture. IMPRESSION: Decreased gaseous distention of the large and small bowel status post placement of enteric tube. ACT 112: Negative or not required by law. The above report was generated using voice recognition software. It may contain grammatical, syntax o r spelling errors. Electronically signed by: Chris Ruiz M.D. 06/21/2023 12:35 PM
[2023-06-22 04:35] LABS: Hematocrit (blood only) 39.4 % (37.0-47.0); Hemoglobin 12.9 g/dl (12.0-16.0); Mean Corpuscular Hemoglobin 29.9 pg (25.0-34.0); Mean Corpuscular Hgb Conc 32.7 g/dL (32.0-36.0); Mean Corpuscular Volume 91.4 fL (80.0-100.0); Mean Platelet Volume 9.5 fL (9.4-12.4); Platelet Count 309 K/uL (130-400); RDW Coefficient of Variation 12.3 % (11.5-14.5); RDW Standard Deviation 41.1 fL (36.4-46.3); Red Blood Count 4.31 M/uL (4.20-5.40); White Blood Count 8.97 K/ul (4.8-10.8)
[2023-06-22 04:53] LABS: Albumin Globulin Ratio 1.2 (0.9-2); Albumin Level 3.7 gm/dl (3.4-5.0); BUN Creatinine Ratio 46.5 (10-20); Bilirubin,Total 1.6 mg/dl (0.2-1.0); Calcium 8.9 mg/dl (8.6-10.3); Est GFR (African American) 118.6 ml/min; Est GFR (Non-African American) 102.3 ml/min; Globulin 3.2 gm/dl (2.5-4.0); Magnesium 1.8 mg/dl (1.7-2.4); Phosphorus 2.7 mg/dl (2.5-4.9); Potassium 3.7 mmol/L (3.5-5.1); Total Protein 6.9 gm/dl (6.0-8.3)
[2023-06-22] MEDS: MAGNESIUM SULFATE / D5W 1 GM/100 ML BAG IV ONE (08:00)
--- NOTE | 2023-06-22 08:06 | Hospitalist Progress Note ---
Date of Service June 22, 2023 Assessment & Plan (1) Cholecystitis with cholelithiasis: (2) MANDA on CPAP: (3) Morbid obesity with BMI of 40.0-44.9, adult: (4) Type 2 diabetes mellitus: Plan 72 yo F with hx of of morbid obesity, MANDA on CPAP(6 CMS 2 at bedtime), hypertension, type 2 diabetes mellitus, dyslipidemia who is admitted for elective laparoscopic cholecystectomy with attempted intraoperative cholangiogram. Patient was seen on initial consultation in postoperative recovery room. She was on CPAP at 10 cm H2O. She was slightly sleepy but easily awake able by voice; oriented to time place and person. She denied any pain at the moment. No complaint of chest pain or shortness of breath. She was following commands appropriately. Assessment/plan S/p laparoscopic cholecystectomy with attempted cholangiogram post-op Ileus Patient underwent laparoscopic cholecystectomy for symptomatic gallstones. Intraoperative cholangiogram was attempted; however due to very small cystic duct not able to thread the catheter through the duct. Advancing diet as tolerated Pain control PT OT zulaykush Had emesis on 06/18 PM - KUB obtained - Distended gas-filled loops of large and small bowel seen throughout the abdomen. This favors an ileus. Continued follow- up recommended to exclude the less likely possibility of a partial bowel obstruction. NGT placed on (06/19), abdomen much less distended 06/21 - Pt passing flatus, no BM yet Morbid obesity MANDA On CPAP at 6 cmH2O at night. Continue while inpatient. baseline ABG Encourage incentive spirometer, 2 step prior to DC Hypertension Continue on amlodipine, lisinopril Type 2 diabetes mellitus; Held home Jardiance, glimepiride. Sliding scale while inpatient. ACHS Hypoglycemia protocol Diet: Advancing as tolerated DVT prophylaxis: SCDs currently as ordered by primary team Dispo: per PT/OT recs Thank you for this consultation. We will follow the patient with you during their hospital stay. You can reach a member of the [facility] Hospitalist Team 17/09 via the hospitalist role on tiger text. Admission and Anticipated Discharge Date Admission Date: June 20, 2023 Subjective Pt seen in follow up of med consult s/p cholecystectomy, now w/ post-op ileus NGT placed, and abdomen much less distended. She passed some flatus but no BM yet Currently pt is sitting up in bed in NAD. No fever, chills, chest pain, shortness of breath, she is using suppl. O2. Pt's sisters present at the bedside. Review of Systems Review of Systems: All systems reviewed & are unremarkable except as noted in Subjective Physical Exam Physical Exam: General: Alert, oriented. No acute distress HEENT: NC/AT CV: RRR Resp: decreased breath sounds, no increased effort of breathing. on suppl. O2 Abdomen: soft, +much less distended abdomen, mildly tender to palpation Extremities: moving extremities Results & Data Results & Data Vital Signs (Past 12 Hours) Vital Signs Temp Pulse Pulse Resp BP Pulse Ox O2 Del Method 06/22/23 07:40 36.6 C 85 18 156/72 H 94 Room Air 06/22/23 03:59 36.8 C 85 16 131/74 92 Nasal Cannula 06/22/23 02:06 104 H 06/22/23 00:05 37 C 91 H 16 133/79 95 Nasal Cannula 06/21/23 21:48 Nasal Cannula O2 Flow Rate 06/22/23 07:40 06/22/23 03:59 2 06/22/23 02:06 06/22/23 00:05 2 06/21/23 21:48 2 Laboratory Results 06/22/23 06/22/23 06/22/23 Range/Units 06:02 03:54 00:02 WBC 8.97 (4.8-10.8) K/ul RBC 4.31 (4.20-5.40) M/uL Hgb 12.9 (12.0-16.0) g/dl Hct 39.4 (37.0-47.0) % MCV 91.4 (80.0-100.0) fL MCH 29.9 (25.0-34.0) pg MCHC 32.7 (32.0-36.0) g/dL RDW Std Deviation 41.1 (36.4-46.3) fL RDW Coeff of Ramos 12.3 (11.5-14.5) % Plt Count 309 (130-400) K/uL MPV 9.5 (9.4-12.4) fL Sodium 139 (136-145) mmol/L Potassium 3.7 (3.5-5.1) mmol/L Chloride 103 (98-107) mmol/L Carbon Dioxide 25 (21-32) mmol/L Anion Gap 11 (3-11) BUN 20 (6-23) mg/dl Creatinine 0.43 L (0.6-1.2) mg/dl Est Cr Clr Drug Dosing 147.0 ml/min Est GFR ( Amer) 118.6 ml/min Est GFR (Non-Af Amer) 102.3 ml/min BUN/Creatinine Ratio 46.5 H (10-20) Glucose 125 H (70-99(Fasting)) mg/dl POC Glucose 102 H 112 H (70-99) mg/dl Calcium 8.9 (8.6-10.3) mg/dl Phosphorus 2.7 (2.5-4.9) mg/dl Magnesium 1.8 (1.7-2.4) mg/dl Total Bilirubin 1.6 H (0.2-1.0) mg/dl AST 21 (13-39) U/L ALT 26 (7-52) U/L Alkaline Phosphatase 118 H (34-104) U/L Total Protein 6.9 (6.0-8.3) gm/dl Albumin 3.7 (3.4-5.0) gm/dl Globulin 3.2 (2.5-4.0) gm/dl Albumin/Globulin Ratio 1.2 (0.9-2) 06/21/23 06/21/23 06/21/23 Range/Units 21:39 18:17 12:13 WBC (4.8-10.8) K/ul RBC (4.20-5.40) M/uL Hgb (12.0-16.0) g/dl Hct (37.0-47.0) % MCV (80.0-100.0) fL MCH (25.0-34.0) pg MCHC (32.0-36.0) g/dL RDW Std Deviation (36.4-46.3) fL RDW Coeff of Ramos (11.5-14.5) % Plt Count (130-400) K/uL MPV (9.4-12.4) fL Sodium (136-145) mmol/L Potassium (3.5-5.1) mmol/L Chloride (98-107) mmol/L Carbon Dioxide (21-32) mmol/L Anion Gap (3-11) BUN (6-23) mg/dl Creatinine (0.6-1.2) mg/dl Est Cr Clr Drug Dosing ml/min Est GFR ( Amer) ml/min Est GFR (Non-Af Amer) ml/min BUN/Creatinine Ratio (10-20) Glucose (70-99(Fasting)) mg/dl POC Glucose 107 H 112 H 132 H (70-99) mg/dl Calcium (8.6-10.3) mg/dl Phosphorus (2.5-4.9) mg/dl Magnesium (1.7-2.4) mg/dl Total Bilirubin (0.2-1.0) mg/dl AST (13-39) U/L ALT (7-52) U/L Alkaline Phosphatase (34-104) U/L Total Protein (6.0-8.3) gm/dl Albumin (3.4-5.0) gm/dl Globulin (2.5-4.0) gm/dl Albumin/Globulin Ratio (0.9-2) 06/21/23 Range/Units 07:38 WBC 7.51 (4.8-10.8) K/ul RBC 4.30 (4.20-5.40) M/uL Hgb 13.1 (12.0-16.0) g/dl Hct 39.4 (37.0-47.0) % MCV 91.6 (80.0-100.0) fL MCH 30.5 (25.0-34.0) pg MCHC 33.2 (32.0-36.0) g/dL RDW Std Deviation 42.1 (36.4-46.3) fL RDW Coeff of Ramos 12.5 (11.5-14.5) % Plt Count 290 (130-400) K/uL MPV 9.5 (9.4-12.4) fL Sodium 137 (136-145) mmol/L Potassium 4.0 (3.5-5.1) mmol/L Chloride 101 (98-107) mmol/L Carbon Dioxide 26 (21-32) mmol/L Anion Gap 10 (3-11) BUN 30 H (6-23) mg/dl Creatinine 0.54 L D (0.6-1.2) mg/dl Est Cr Clr Drug Dosing 117.1 ml/min Est GFR ( Amer) 110.0 ml/min Est GFR (Non-Af Amer) 94.9 ml/min BUN/Creatinine Ratio 55.6 H (10-20) Glucose 123 H (70-99(Fasting)) mg/dl POC Glucose (70-99) mg/dl Calcium 8.9 (8.6-10.3) mg/dl Phosphorus 2.8 D (2.5-4.9) mg/dl Magnesium 1.8 (1.7-2.4) mg/dl Total Bilirubin 1.5 H (0.2-1.0) mg/dl AST 27 (13-39) U/L ALT 31 (7-52) U/L Alkaline Phosphatase 121 H (34-104) U/L Total Protein 6.7 (6.0-8.3) gm/dl Albumin 3.6 (3.4-5.0) gm/dl Globulin 3.1 (2.5-4.0) gm/dl Albumin/Globulin Ratio 1.2 (0.9-2) Medications Administered Current Inpatient Medications Amlodipine Besylate ([facility]ipine Besylate 5 Mg Tab) [facility]: 07/18/23 08:59 Last Admin: 06/21/23 08:38 Dose: 10 mg Artificial Tears (Artificial Tears) 1 drops OP QID PRN PRN Reason: Dryness Stop: 07/18/23 16:04 Cetirizine HCl (Cetirizine Hcl 10 Mg Tablet) 10 mg PO QAM COUNTS INCLUDE 234 BEDS AT THE [facility] Stop: 07/18/23 08:59 Last Admin: 06/21/23 08:38 Dose: 10 mg Dextrose (Dextrose 50% 50 Ml Syringe) 25 - 50 ml IV UD PRN; Protocol PRN Reason: Hypoglycemia Protocol Stop: 07/17/23 14:12 Glucagon (Glucagon For Inj 1 Mg Vial) 1 mg SQ UD PRN; Protocol PRN Reason: Hypoglycemia Protocol Stop: 07/17/23 14:12 Glucose (Glucose 10 Tab/Tube) 4 - 8 tab PO UD PRN; Protocol PRN Reason: Hypoglycemia Treatment Stop: 07/17/23 14:12 Glucose (Glucose 40% Gel 15 Gm Tube) 15 - 30 gm PO UD PRN; Protocol PRN Reason: Hypoglycemia Protocol Stop: 07/17/23 14:12 Promethazine HCl 12.5 mg/ (Sodium Chloride) 50.5 mls @ 204 mls/hr IV Q6H PRN PRN Reason: Nausea And Vomiting Stop: 07/17/23 11:16 Last Infusion: 06/19/23 16:23 Dose: Infused Lactated Ringer's (Lr) 1,000 mls @ 100 mls/hr IV .Q10H MATILDA Stop: 07/20/23 12:14 Last Admin: 06/22/23 04:01 Dose: 100 mls/hr Acetaminophen (Ofirmev) 1,000 mg in 100 mls @ 400 mls/hr IV Q8H PRN PRN Reason: Pain Stop: 06/23/23 15:26 Last Infusion: 06/20/23 17:04 Dose: Infused Magnesium Sulfate/Dextrose (Magnesium Sulfate / D5w) 1 gm in 100 mls @ 50 mls/hr IV ONE ONE Stop: 06/22/23 10:03 Potassium Chloride (K Eric / Wtr) 10 meq in 100 mls @ 100 mls/hr IV Q1H COUNTS INCLUDE 234 BEDS AT THE [facility] Stop: 06/22/23 10:14 Insulin Aspart (Insulin Aspart Per Unit Charge) 0 units SC Q6 COUNTS INCLUDE 234 BEDS AT THE [facility] Stop: 07/17/23 16:29 Last Admin: 06/22/23 06:12 Dose: Not Given Insulin Glargine (Lantus Per Unit Charge) 0 - 10 units SQ BID COUNTS INCLUDE 234 BEDS AT THE [facility] Stop: 07/17/23 20:59 Last Admin: 06/21/23 21:48 Dose: Not Given Lisinopril (Lisinopril 10 Mg Tab) 10 mg PO QAM COUNTS INCLUDE 234 BEDS AT THE [facility] Stop: 07/18/23 08:59 Last Admin: 06/21/23 08:38 Dose: 10 mg Menthol (Cough Drop (Sugar Free) Lacey 24 Lacey/1 Box) 1 lacey BUCCAL Q2H PRN PRN Reason: Sore Throat Stop: 07/21/23 10:01 Miscellaneous (Carbohydrates For Hypoglycemia ) 15 - 30 gm PO UD PRN PRN Reason: Hypoglycemia Protocol Stop: 07/17/23 14:12 Morphine Sulfate (Morphine Sulfate 4 Mg/Ml 1 Ml Carp\Vial) 4 mg IV Q3H PRN PRN Reason: Pain (6,7,8,9,10) Stop: 07/01/23 09:54 Last Admin: 06/21/23 02:27 Dose: 4 mg Morphine Sulfate (Morphine Sulfate 2 Mg/Ml Carp) 2 mg IV Q3H PRN PRN Reason: Pain (1,2,3,4,5) & Pre PT Stop: 07/01/23 09:54 Last Admin: 06/21/23 22:44 Dose: 2 mg Nystatin (Nystatin Cr 15 Gm Tube) 1 appln EXT UD PRN PRN Reason: Rash Stop: 07/17/23 14:12 Ondansetron HCl (Ondansetron Inj 2 Mg/Ml 2 Ml Vial) 4 mg IV Q4H PRN PRN Reason: Nausea And Vomiting Stop: 07/17/23 11:16 Last Admin: 06/20/23 13:21 Dose: 4 mg Oxycodone/Acetaminophen (Oxycodone/Acetaminophen 5mg/325mg Tab) 2 tab PO Q4H PRN PRN Reason: SEVERE Pain (7,8,9,10) Stop: 07/01/23 09:54 Last Admin: 06/20/23 09:29 Dose: 2 tab Oxycodone/Acetaminophen (Oxycodone/Acetaminophen 5mg/325mg Tab) 1 tab PO Q4H PRN PRN Reason: MODERATE Pain (4,5,6) & Pre PT Stop: 07/01/23 09:54 Last Admin: 06/19/23 20:13 Dose: 1 tab Pantoprazole Sodium (Pantoprazole 40 Mg Tab) 40 mg PO [facility] Stop: 07/18/23 08:59 Last Admin: 06/21/23 08:38 Dose: 40 mg Phenol (Chloraseptic (Phenol) 1.4% Soln 180 Ml Btl) 1 sprays MT Q2H PRN PRN Reason: Sore Throat Stop: 07/21/23 10:01 Last Admin: 06/21/23 18:23 Dose: 1 sprays Polyethylene Glycol (Polyethylene (Miralax) 17 Gm Pack) 17 gm PO DAILY PRN PRN Reason: Constipation Stop: 07/19/23 15:13 Last Admin: 06/19/23 18:22 Dose: 17 gm Rosuvastatin Calcium (Rosuvastatin Calcium 5 Mg Tab) 5 mg PO QAM COUNTS INCLUDE 234 BEDS AT THE [facility] Stop: 07/18/23 08:59 Last Admin: 06/21/23 08:38 Dose: 5 mg Simethicone (Simethicone 80 Mg Chew) 80 mg PO Q6H PRN PRN Reason: Flatulence Stop: 07/19/23 15:13 Last Admin: 06/19/23 20:13 Dose: 80 mg Vitamin D (Cholecalciferol 25 Mcg (1000 Units) Tab) 25 mcg PO [facility] Stop: 07/18/23 08:59 Last Admin: 06/21/23 08:39 Dose: 25 mcg
[2023-06-22] MEDS: POTASSIUM CHLORIDE / WTR 10 MEQ/100 ML PLCT IV SCH (08:24)
--- NOTE | 2023-06-22 13:34 | Surgery Progress Note ---
Date of Service June 22, 2023 Assessment & Plan (1) Cholelithiasis: Plan: POD # 5 s/p laparoscopic cholecystectomy avss still requiring 2 liters O2 via nasal cannula + flatus no n,v Plan: continue pain management as needed throat spray for sore throat will clamp NG tube if no nausea or vomiting in 4 hours after clamping NG tube, may remove the NG tube highly encouraged patient to get oob to chair and ambulate to increase GI m otility Incentive spirometry continue medical management PT/OT SCDs Admission and Anticipated Discharge Date Admission Date: June 20, 2023 Subjective feeling somewhat better today. No nausea or vomiting. Minimal pain. Passing flatus. Physical Exam Physical Exam: AFVSS NAD, A&O x 3 Abdomen: Soft, NTND incisions C/D/I Results & Data Vital Signs (Past 12 Hours) Vital Signs Temp Pulse Pulse Resp BP BP Pulse Ox 06/22/23 11:43 36.7 C 79 18 167/81 H 97 06/22/23 11:34 83 06/22/23 08:22 06/22/23 07:40 36.6 C 85 18 156/72 H 94 06/22/23 03:59 36.8 C 85 16 131/74 92 06/22/23 02:06 104 H O2 Del Method O2 Flow Rate 06/22/23 11:43 06/22/23 11:34 06/22/23 08:22 Nasal Cannula 2 06/22/23 07:40 Room Air 06/22/23 03:59 Nasal Cannula 2 06/22/23 02:06
[2023-06-23 05:21] LABS: Hematocrit (blood only) 37.5 % (37.0-47.0); Hemoglobin 12.3 g/dl (12.0-16.0); Mean Corpuscular Hemoglobin 29.9 pg (25.0-34.0); Mean Corpuscular Hgb Conc 32.8 g/dL (32.0-36.0); Mean Corpuscular Volume 91.2 fL (80.0-100.0); Mean Platelet Volume 9.3 fL (9.4-12.4); Platelet Count 286 K/uL (130-400); RDW Coefficient of Variation 12.2 % (11.5-14.5); RDW Standard Deviation 40.9 fL (36.4-46.3); Red Blood Count 4.11 M/uL (4.20-5.40); White Blood Count 7.32 K/ul (4.8-10.8)
[2023-06-23 05:31] LABS: Albumin Globulin Ratio 1.3 (0.9-2); Albumin Level 3.4 gm/dl (3.4-5.0); BUN Creatinine Ratio 42.4 (10-20); Bilirubin,Total 1.7 mg/dl (0.2-1.0); Calcium 8.9 mg/dl (8.6-10.3); Creatinine Clr Calc Pharmacy 191.6 ml/min; Est GFR (African American) 129.4 ml/min; Est GFR (Non-African American) 111.6 ml/min; Globulin 2.7 gm/dl (2.5-4.0); Magnesium 1.7 mg/dl (1.7-2.4); Phosphorus 2.8 mg/dl (2.5-4.9); Potassium 3.6 mmol/L (3.5-5.1); Total Protein 6.1 gm/dl (6.0-8.3)
--- NOTE | 2023-06-23 07:32 | Hospitalist Progress Note ---
Date of Service June 23, 2023 Assessment & Plan (1) Cholecystitis with cholelithiasis: (2) MANDA on CPAP: (3) Morbid obesity with BMI of 40.0-44.9, adult: (4) Type 2 diabetes mellitus: Plan 72 yo F with hx of of morbid obesity, MANDA on CPAP(6 CMS 2 at bedtime), hypertension, type 2 diabetes mellitus, dyslipidemia who is admitted for elective laparoscopic cholecystectomy with attempted intraoperative cholangiogram. Patient was seen on initial consultation in postoperative recovery room. She was on CPAP at 10 cm H2O. She was slightly sleepy but easily awake able by voice; oriented to time place and person. She denied any pain at the moment. No complaint of chest pain or shortness of breath. She was following commands appropriately. Assessment/plan S/p laparoscopic cholecystectomy with attempted cholangiogram post-op Ileus Patient underwent laparoscopic cholecystectomy for symptomatic gallstones. Intraoperative cholangiogram was attempted; however due to very small cystic duct not able to thread the catheter through the duct. Advancing diet as tolerated Pain control PT OT philip Had emesis on 06/18 PM - KUB obtained - Distended gas-filled loops of large and small bowel seen throughout the abdomen. This favors an ileus. Continued follow- up recommended to exclude the less likely possibility of a partial bowel obstruction. NGT placed on (06/19), abdomen much less distended 06/21 - Pt passing flatus, no BM yet 06/22 NGT removed, Pt had a BM , overall abdomen less distended and has only some pain at incision sites Morbid obesity MANDA On CPAP at 6 cmH2O at night. Continue while inpatient. baseline ABG Encourage incentive spirometer, flutter valve, guaifenesin. encourage ambulation Currently down to 1L Hypertension Continue on amlodipine, lisinopril Type 2 diabetes mellitus; Held home Jardiance, glimepiride. Sliding scale while inpatient. ACHS Hypoglycemia protocol Diet: Advancing as tolerated DVT prophylaxis: SCDs currently as ordered by primary team Dispo: per PT/OT recs Thank you for this consultation. We will follow the patient with you during their hospital stay. You can reach a member of the [facility] Hospitalist Team 17/09 via the hospitalist role on tiger text. Admission and Anticipated Discharge Date Admission Date: June 20, 2023 Subjective Pt seen in follow up of med consult s/p cholecystectomy, now w/ post-op ileus NGT removed overnight Pt ambulated yesterday and had a BM afterwards, feeling better overall. Currently on 1L of suppl. O2. Discussed with RN at the bedside. Continue to encourage ambulation, IS. will also order flutter valve and guaifenesin. Abdomen much less distended, with only minimal pain at incision sites. No fever, chills, chest pain, shortness of breath. Review of Systems Review of Systems: All systems reviewed & are unremarkable except as noted in Subjective Physical Exam Physical Exam: General: Alert, oriented. No acute distress HEENT: NC/AT CV: RRR Resp: decreased breath sounds, no increased effort of breathing. on suppl. O2 Abdomen: soft, +much less distended abdomen, mildly tender to palpation Extremities: moving extremities Results & Data Results & Data Vital Signs (Past 12 Hours) Vital Signs Temp Pulse Resp BP Pulse Ox O2 Del Method O2 Flow Rate 06/23/23 03:55 36.7 C 79 20 136/82 95 06/22/23 23:21 36.8 C 94 H 20 143/76 H 06/22/23 22:00 92 H 06/22/23 20:36 Nasal Cannula 1 06/22/23 20:11 36.8 C 96 H 20 146/80 H 96 Laboratory Results 06/23/23 06/23/23 06/22/23 Range/Units 06:04 04:39 23:45 WBC 7.32 (4.8-10.8) K/ul RBC 4.11 L (4.20-5.40) M/uL Hgb 12.3 (12.0-16.0) g/dl Hct 37.5 (37.0-47.0) % MCV 91.2 (80.0-100.0) fL MCH 29.9 (25.0-34.0) pg MCHC 32.8 (32.0-36.0) g/dL RDW Std Deviation 40.9 (36.4-46.3) fL RDW Coeff of Ramos 12.2 (11.5-14.5) % Plt Count 286 (130-400) K/uL MPV 9.3 L (9.4-12.4) fL Sodium 139 (136-145) mmol/L Potassium 3.6 (3.5-5.1) mmol/L Chloride 105 (98-107) mmol/L Carbon Dioxide 26 (21-32) mmol/L Anion Gap 8 (3-11) BUN 14 (6-23) mg/dl Creatinine 0.33 L (0.6-1.2) mg/dl Est Cr Clr Drug Dosing 191.6 ml/min Est GFR ( Amer) 129.4 ml/min Est GFR (Non-Af Amer) 111.6 ml/min BUN/Creatinine Ratio 42.4 H (10-20) Glucose 95 (70-99(Fasting)) mg/dl POC Glucose 91 97 (70-99) mg/dl Calcium 8.9 (8.6-10.3) mg/dl Phosphorus 2.8 (2.5-4.9) mg/dl Magnesium 1.7 (1.7-2.4) mg/dl Total Bilirubin 1.7 H (0.2-1.0) mg/dl AST 21 (13-39) U/L ALT 21 (7-52) U/L Alkaline Phosphatase 125 H (34-104) U/L Total Protein 6.1 (6.0-8.3) gm/dl Albumin 3.4 (3.4-5.0) gm/dl Globulin 2.7 (2.5-4.0) gm/dl Albumin/Globulin Ratio 1.3 (0.9-2) 06/22/23 06/22/23 06/22/23 Range/Units 20:47 16:54 12:00 WBC (4.8-10.8) K/ul RBC (4.20-5.40) M/uL Hgb (12.0-16.0) g/dl Hct (37.0-47.0) % MCV (80.0-100.0) fL MCH (25.0-34.0) pg MCHC (32.0-36.0) g/dL RDW Std Deviation (36.4-46.3) fL RDW Coeff of Ramos (11.5-14.5) % Plt Count (130-400) K/uL MPV (9.4-12.4) fL Sodium (136-145) mmol/L Potassium (3.5-5.1) mmol/L Chloride (98-107) mmol/L Carbon Dioxide (21-32) mmol/L Anion Gap (3-11) BUN (6-23) mg/dl Creatinine (0.6-1.2) mg/dl Est Cr Clr Drug Dosing ml/min Est GFR ( Amer) ml/min Est GFR (Non-Af Amer) ml/min BUN/Creatinine Ratio (10-20) Glucose (70-99(Fasting)) mg/dl POC Glucose 99 104 H 112 H (70-99) mg/dl Calcium (8.6-10.3) mg/dl Phosphorus (2.5-4.9) mg/dl Magnesium (1.7-2.4) mg/dl Total Bilirubin (0.2-1.0) mg/dl AST (13-39) U/L ALT (7-52) U/L Alkaline Phosphatase (34-104) U/L Total Protein (6.0-8.3) gm/dl Albumin (3.4-5.0) gm/dl Globulin (2.5-4.0) gm/dl Albumin/Globulin Ratio (0.9-2) 06/22/23 Range/Units 08:06 WBC (4.8-10.8) K/ul RBC (4.20-5.40) M/uL Hgb (12.0-16.0) g/dl Hct (37.0-47.0) % MCV (80.0-100.0) fL MCH (25.0-34.0) pg MCHC (32.0-36.0) g/dL RDW Std Deviation (36.4-46.3) fL RDW Coeff of Ramos (11.5-14.5) % Plt Count (130-400) K/uL MPV (9.4-12.4) fL Sodium (136-145) mmol/L Potassium (3.5-5.1) mmol/L Chloride (98-107) mmol/L Carbon Dioxide (21-32) mmol/L Anion Gap (3-11) BUN (6-23) mg/dl Creatinine (0.6-1.2) mg/dl Est Cr Clr Drug Dosing ml/min Est GFR ( Amer) ml/min Est GFR (Non-Af Amer) ml/min BUN/Creatinine Ratio (10-20) Glucose (70-99(Fasting)) mg/dl POC Glucose 108 H (70-99) mg/dl Calcium (8.6-10.3) mg/dl Phosphorus (2.5-4.9) mg/dl Magnesium (1.7-2.4) mg/dl Total Bilirubin (0.2-1.0) mg/dl AST (13-39) U/L ALT (7-52) U/L Alkaline Phosphatase (34-104) U/L Total Protein (6.0-8.3) gm/dl Albumin (3.4-5.0) gm/dl Globulin (2.5-4.0) gm/dl Albumin/Globulin Ratio (0.9-2) Medications Administered Current Inpatient Medications Amlodipine Besylate (Amlodipine Besylate 5 Mg Tab) 10 mg PO [facility] Stop: 07/18/23 08:59 Last Admin: 06/22/23 11:51 Dose: Not Given Artificial Tears (Artificial Tears) 1 drops OP QID PRN PRN Reason: Dryness Stop: 07/18/23 16:04 Cetirizine HCl (Cetirizine Hcl 10 Mg Tablet) 10 mg PO [facility] Stop: 07/18/23 08:59 Last Admin: 06/22/23 11:51 Dose: Not Given Dextrose (Dextrose 50% 50 Ml Syringe) 25 - 50 ml IV UD PRN; Protocol PRN Reason: Hypoglycemia Protocol Stop: 07/17/23 14:12 Glucagon (Glucagon For Inj 1 Mg Vial) 1 mg SQ UD PRN; Protocol PRN Reason: Hypoglycemia Protocol Stop: 07/17/23 14:12 Glucose (Glucose 10 Tab/Tube) 4 - 8 tab PO UD PRN; Protocol PRN Reason: Hypoglycemia Treatment Stop: 07/17/23 14:12 Glucose (Glucose 40% Gel 15 Gm Tube) 15 - 30 gm PO UD PRN; Protocol PRN Reason: Hypoglycemia Protocol Stop: 07/17/23 14:12 Promethazine HCl 12.5 mg/ (Sodium Chloride) 50.5 mls @ 204 mls/hr IV Q6H PRN PRN Reason: Nausea And Vomiting Stop: 07/17/23 11:16 Last Infusion: 06/19/23 16:23 Dose: Infused Lactated Ringer's (Lr) 1,000 mls @ 100 mls/hr IV .Q10H [facility] Stop: 07/20/23 12:14 Last Admin: 06/22/23 17:32 Dose: 100 mls/hr Acetaminophen (Ofirmev) 1,000 mg in 100 mls @ 400 mls/hr IV Q8H PRN PRN Reason: Pain Stop: 06/23/23 15:26 Last Infusion: 06/20/23 17:04 Dose: Infused Magnesium Sulfate/Dextrose (Magnesium Sulfate / D5w) 1 gm in 100 mls @ 50 mls/hr IV ONE ONE Stop: 06/23/23 09:28 Potassium Chloride (K Eric / Wtr) 10 meq in 100 mls @ 100 mls/hr IV Q1H [facility] Stop: 06/23/23 09:29 Insulin Aspart (Insulin Aspart Per Unit Charge) 0 units SC Q6 [facility] Stop: 07/17/23 16:29 Last Admin: 06/23/23 00:04 Dose: Not Given Insulin Glargine (Lantus Per Unit Charge) 0 - 10 units SQ BID [facility] Stop: 07/17/23 20:59 Last Admin: 06/22/23 20:50 Dose: Not Given Lisinopril (Lisinopril 10 Mg Tab) 10 mg PO QAM [facility] Stop: 07/18/23 08:59 Last Admin: 06/22/23 11:51 Dose: Not Given Menthol (Cough Drop (Sugar Free) Lacey 24 Lacey/1 Box) 1 lacey BUCCAL Q2H PRN PRN Reason: Sore Throat Stop: 07/21/23 10:01 Miscellaneous (Carbohydrates For Hypoglycemia ) 15 - 30 gm PO UD PRN PRN Reason: Hypoglycemia Protocol Stop: 07/17/23 14:12 Morphine Sulfate (Morphine Sulfate 4 Mg/Ml 1 Ml Carp\Vial) 4 mg IV Q3H PRN PRN Reason: Pain (6,7,8,9,10) Stop: 07/01/23 09:54 Last Admin: 06/21/23 02:27 Dose: 4 mg Morphine Sulfate (Morphine Sulfate 2 Mg/Ml Carp) 2 mg IV Q3H PRN PRN Reason: Pain (1,2,3,4,5) & Pre PT Stop: 07/01/23 09:54 Last Admin: 06/21/23 22:44 Dose: 2 mg Nystatin (Nystatin Cr 15 Gm Tube) 1 appln EXT UD PRN PRN Reason: Rash Stop: 07/17/23 14:12 Ondansetron HCl (Ondansetron Inj 2 Mg/Ml 2 Ml Vial) 4 mg IV Q4H PRN PRN Reason: Nausea And Vomiting Stop: 07/17/23 11:16 Last Admin: 06/20/23 13:21 Dose: 4 mg Oxycodone/Acetaminophen (Oxycodone/Acetaminophen 5mg/325mg Tab) 2 tab PO Q4H PRN PRN Reason: SEVERE Pain (7,8,9,10) Stop: 07/01/23 09:54 Last Admin: 06/20/23 09:29 Dose: 2 tab Oxycodone/Acetaminophen (Oxycodone/Acetaminophen 5mg/325mg Tab) 1 tab PO Q4H PRN PRN Reason: MODERATE Pain (4,5,6) & Pre PT Stop: 07/01/23 09:54 Last Admin: 06/19/23 20:13 Dose: 1 tab Pantoprazole Sodium (Pantoprazole 40 Mg Tab) 40 mg PO [facility] Stop: 07/18/23 08:59 Last Admin: 06/22/23 11:52 Dose: Not Given Phenol (Chloraseptic (Phenol) 1.4% Soln 180 Ml Btl) 1 sprays MT Q2H PRN PRN Reason: Sore Throat Stop: 07/21/23 10:01 Last Admin: 06/21/23 18:23 Dose: 1 sprays Polyethylene Glycol (Polyethylene (Miralax) 17 Gm Pack) 17 gm PO DAILY PRN PRN Reason: Constipation Stop: 07/19/23 15:13 Last Admin: 06/19/23 18:22 Dose: 17 gm Rosuvastatin Calcium (Rosuvastatin Calcium 5 Mg Tab) 5 mg PO [facility] Stop: 07/18/23 08:59 Last Admin: 06/22/23 11:52 Dose: Not Given Simethicone (Simethicone 80 Mg Chew) 80 mg PO Q6H PRN PRN Reason: Flatulence Stop: 07/19/23 15:13 Last Admin: 06/19/23 20:13 Dose: 80 mg Vitamin D (Cholecalciferol 25 Mcg (1000 Units) Tab) 25 mcg PO [facility] Stop: 07/18/23 08:59 Last Admin: 06/22/23 11:51 Dose: Not Given
[2023-06-23] MEDS: POTASSIUM CHLORIDE / WTR 10 MEQ/100 ML PLCT IV SCH (08:17)
--- NOTE | 2023-06-23 09:10 | Surgery Progress Note ---
Date of Service June 23, 2023 Assessment & Plan (1) Cholelithiasis: Plan: POD # 6 s/p laparoscopic cholecystectomy avss still requiring 2 liters O2 via nasal cannula + flatus no n,v Plan: continue pain management as needed throat spray for sore throat NGT out. advance diet to clear liquids highly encouraged patient to get oob to chair and ambulate to increase GI motility Incentive spirometry continue medical management PT/OT SCDs Admission and Anticipated Discharge Date Admission Date: June 20, 2023 Subjective doing better today. no nausea/vomiting. NGT out overnight. passing flatus Physical Exam Physical Exam: AFVSS NAD, A&O x 3 Abdomen: Soft, NTND incisions C/D/I Results & Data Vital Signs (Past 12 Hours) Vital Signs Temp Pulse Resp BP Pulse Ox O2 Del Method 06/23/23 08:35 Nasal Cannula 06/23/23 08:08 36.4 C L 77 16 130/81 92 06/23/23 03:55 36.7 C 79 20 136/82 95 06/22/23 23:21 36.8 C 94 H 20 143/76 H 06/22/23 22:00 92 H
[2023-06-23] MEDS: MAGNESIUM SULFATE / D5W 1 GM/100 ML BAG IV ONE (10:12)
[2023-06-23] MEDS: guaiFENesin 600 MG TABCR PO SCH (11:44)
[2023-06-24 06:21] LABS: Hematocrit (blood only) 39.9 % (37.0-47.0); Mean Corpuscular Hemoglobin 29.5 pg (25.0-34.0); Mean Corpuscular Hgb Conc 32.6 g/dL (32.0-36.0); Mean Corpuscular Volume 90.5 fL (80.0-100.0); Mean Platelet Volume 9.2 fL (9.4-12.4); Platelet Count 296 K/uL (130-400); Red Blood Count 4.41 M/uL (4.20-5.40); White Blood Count 6.82 K/ul (4.8-10.8)
[2023-06-24 06:33] LABS: BUN Creatinine Ratio 32.4 (10-20); Calcium 8.6 mg/dl (8.6-10.3); Creatinine Clr Calc Pharmacy 187.1 ml/min; Est GFR (African American) 128.1 ml/min; Est GFR (Non-African American) 110.5 ml/min; Magnesium 1.6 mg/dl (1.7-2.4); Phosphorus 3.1 mg/dl (2.5-4.9); Potassium 3.4 mmol/L (3.5-5.1)
[2023-06-24] MEDS ORDERED: Nursing to Pharmacy Communication SCH (07:15)
--- NOTE | 2023-06-24 08:52 | Hospitalist Progress Note ---
Date of Service June 24, 2023 Assessment & Plan (1) Cholecystitis with cholelithiasis: (2) MANDA on CPAP: (3) Morbid obesity with BMI of 40.0-44.9, adult: (4) Type 2 diabetes mellitus: Plan 72 yo F with hx of of morbid obesity, MANDA on CPAP(6 CMS 2 at bedtime), hypertension, type 2 diabetes mellitus, dyslipidemia who is admitted for elective laparoscopic cholecystectomy with attempted intraoperative cholangiogram. Patient was seen on initial consultation in postoperative recovery room. She was on CPAP at 10 cm H2O. She was slightly sleepy but easily awake able by voice; oriented to time place and person. She denied any pain at the moment. No complaint of chest pain or shortness of breath. She was following commands appropriately. Assessment/plan S/p laparoscopic cholecystectomy with attempted cholangiogram post-op Ileus Patient underwent laparoscopic cholecystectomy for symptomatic gallstones. Intraoperative cholangiogram was attempted; however due to very small cystic duct not able to thread the catheter through the duct. Advancing diet as tolerated Pain control PT OT philip Had emesis on 06/18 PM - KUB obtained - Distended gas-filled loops of large and small bowel seen throughout the abdomen. This favors an ileus. Continued follow- up recommended to exclude the less likely possibility of a partial bowel obstruction. NGT placed on (06/19), abdomen much less distended 06/21 - Pt passing flatus, no BM yet 06/22 NGT removed, Pt had a BM , overall abdomen less distended and has only some pain at incision sites 06/23 Had BM today, overall feeling better. Morbid obesity MANDA On CPAP at 6 cmH2O at night. Continue while inpatient. baseline ABG Encourage incentive spirometer, flutter valve, guaifenesin. encourage ambulation Currently down to 1L Trying to wean off oxygen Hypertension Continue on amlodipine, lisinopril Type 2 diabetes mellitus; Held home Jardiance, glimepiride. Sliding scale while inpatient. ACHS Hypoglycemia protocol Diet: Advancing as tolerated DVT prophylaxis: SCDs currently as ordered by primary team Dispo: per PT/OT recs Thank you for this consultation. We will follow the patient with you during their hospital stay. You can reach a member of the [facility] Hospitalist Team 17/09 via the hospitalist role on tiger text. Admission and Anticipated Discharge Date Admission Date: June 20, 2023 Subjective Pt seen in follow up of med consult s/p cholecystectomy, now w/ post-op ileus NGT removed Pt ambulatory, having BMs. Minimal abdominal discomfort. Discussed with RN at the bedside. No fever, chills, chest pain, shortness of breath. Plan to wean off O2. Replete electrolytes. Review of Systems Review of Systems: All systems reviewed & are unremarkable except as noted in Subjective Physical Exam Physical Exam: General: Alert, oriented. No acute distress HEENT: NC/AT CV: RRR Resp: decreased breath sounds, no increased effort of breathing. on suppl. O2 Abdomen: soft, +much less distended abdomen, mildly tender to palpation Extremities: moving extremities Results & Data Results & Data Vital Signs (Past 12 Hours) Vital Signs Temp Pulse Resp BP Pulse Ox O2 Del Method 06/24/23 07:57 36.8 C 80 16 122/70 95 06/24/23 04:05 81 06/24/23 03:49 36.6 C 86 20 142/79 H 93 06/24/23 00:09 36.5 C 77 20 139/78 97 06/23/23 22:09 Room Air Laboratory Results 06/24/23 06/24/23 06/24/23 Range/Units 08:34 05:53 05:50 WBC 6.82 (4.8-10.8) K/ul RBC 4.41 (4.20-5.40) M/uL Hgb 13.0 (12.0-16.0) g/dl Hct 39.9 (37.0-47.0) % MCV 90.5 (80.0-100.0) fL MCH 29.5 (25.0-34.0) pg MCHC 32.6 (32.0-36.0) g/dL RDW Std Deviation 40.0 (36.4-46.3) fL RDW Coeff of Ramos 12.0 (11.5-14.5) % Plt Count 296 (130-400) K/uL MPV 9.2 L (9.4-12.4) fL Sodium 139 (136-145) mmol/L Potassium 3.4 L (3.5-5.1) mmol/L Chloride 103 (98-107) mmol/L Carbon Dioxide 26 (21-32) mmol/L Anion Gap 10 (3-11) BUN 11 (6-23) mg/dl Creatinine 0.34 L (0.6-1.2) mg/dl Est Cr Clr Drug Dosing 187.1 ml/min Est GFR ( Amer) 128.1 ml/min Est GFR (Non-Af Amer) 110.5 ml/min BUN/Creatinine Ratio 32.4 H (10-20) Glucose 98 (70-99(Fasting)) mg/dl POC Glucose 90 95 (70-99) mg/dl Calcium 8.6 (8.6-10.3) mg/dl Phosphorus 3.1 (2.5-4.9) mg/dl Magnesium 1.6 L (1.7-2.4) mg/dl 06/24/23 06/23/23 06/23/23 Range/Units 01:15 20:36 17:20 WBC (4.8-10.8) K/ul RBC (4.20-5.40) M/uL Hgb (12.0-16.0) g/dl Hct (37.0-47.0) % MCV (80.0-100.0) fL MCH (25.0-34.0) pg MCHC (32.0-36.0) g/dL RDW Std Deviation (36.4-46.3) fL RDW Coeff of Ramos (11.5-14.5) % Plt Count (130-400) K/uL MPV (9.4-12.4) fL Sodium (136-145) mmol/L Potassium (3.5-5.1) mmol/L Chloride (98-107) mmol/L Carbon Dioxide (21-32) mmol/L Anion Gap (3-11) BUN (6-23) mg/dl Creatinine (0.6-1.2) mg/dl Est Cr Clr Drug Dosing ml/min Est GFR ( Amer) ml/min Est GFR (Non-Af Amer) ml/min BUN/Creatinine Ratio (10-20) Glucose (70-99(Fasting)) mg/dl POC Glucose 82 96 92 (70-99) mg/dl Calcium (8.6-10.3) mg/dl Phosphorus (2.5-4.9) mg/dl Magnesium (1.7-2.4) mg/dl 06/23/23 Range/Units 11:58 WBC (4.8-10.8) K/ul RBC (4.20-5.40) M/uL Hgb (12.0-16.0) g/dl Hct (37.0-47.0) % MCV (80.0-100.0) fL MCH (25.0-34.0) pg MCHC (32.0-36.0) g/dL RDW Std Deviation (36.4-46.3) fL RDW Coeff of Ramos (11.5-14.5) % Plt Count (130-400) K/uL MPV (9.4-12.4) fL Sodium (136-145) mmol/L Potassium (3.5-5.1) mmol/L Chloride (98-107) mmol/L Carbon Dioxide (21-32) mmol/L Anion Gap (3-11) BUN (6-23) mg/dl Creatinine (0.6-1.2) mg/dl Est Cr Clr Drug Dosing ml/min Est GFR ( Amer) ml/min Est GFR (Non-Af Amer) ml/min BUN/Creatinine Ratio (10-20) Glucose (70-99(Fasting)) mg/dl POC Glucose 114 H (70-99) mg/dl Calcium (8.6-10.3) mg/dl Phosphorus (2.5-4.9) mg/dl Magnesium (1.7-2.4) mg/dl Medications Administered Current Inpatient Medications Amlodipine Besylate (Amlodipine Besylate 5 Mg Tab) 10 mg PO QAM [facility] Stop: 07/18/23 08:59 Last Admin: 06/23/23 08:18 Dose: 10 mg Artificial Tears (Artificial Tears) 1 drops OP QID PRN PRN Reason: Dryness Stop: 07/18/23 16:04 Cetirizine HCl (Cetirizine Hcl 10 Mg Tablet) 10 mg PO QAM [facility]ILDA Stop: 07/18/23 08:59 Last Admin: 06/23/23 08:18 Dose: 10 mg Dextrose (Dextrose 50% 50 Ml Syringe) 25 - 50 ml IV UD PRN; Protocol PRN Reason: Hypoglycemia Protocol Stop: 07/17/23 14:12 Glucagon (Glucagon For Inj 1 Mg Vial) 1 mg SQ UD PRN; Protocol PRN Reason: Hypoglycemia Protocol Stop: 07/17/23 14:12 Glucose (Glucose 10 Tab/Tube) 4 - 8 tab PO UD PRN; Protocol PRN Reason: Hypoglycemia Treatment Stop: 07/17/23 14:12 Glucose (Glucose 40% Gel 15 Gm Tube) 15 - 30 gm PO UD PRN; Protocol PRN Reason: Hypoglycemia Protocol Stop: 07/17/23 14:12 Guaifenesin (Guaifenesin 600 Mg Tabcr) 600 mg PO Q12 [facility] Stop: 07/23/23 08:59 Last Admin: 06/23/23 21:05 Dose: 600 mg Promethazine HCl 12.5 mg/ (Sodium Chloride) 50.5 mls @ 204 mls/hr IV Q6H PRN PRN Reason: Nausea And Vomiting Stop: 07/17/23 11:16 Last Infusion: 06/19/23 16:23 Dose: Infused Lactated Ringer's (Lr) 1,000 mls @ 100 mls/hr IV .Q10H [facility] Stop: 07/20/23 12:14 Last Admin: 06/24/23 03:48 Dose: 100 mls/hr Insulin Aspart (Insulin Aspart Per Unit Charge) 0 units SC ACHS [facility] Stop: 07/20/23 17:59 Insulin Glargine (Lantus Per Unit Charge) 0 - 10 units SQ BID [facility] Stop: 07/17/23 20:59 Last Admin: 06/23/23 20:55 Dose: Not Given Lisinopril (Lisinopril 10 Mg Tab) 10 mg PO QAM [facility] Stop: 07/18/23 08:59 Last Admin: 06/23/23 08:17 Dose: 10 mg Magnesium Oxide (Magnesium Oxide 400 Mg Tab) 400 mg PO QAM [facility] Stop: 07/24/23 08:59 Menthol (Cough Drop (Sugar Free) Lacey 24 Lacey/1 Box) 1 lacey BUCCAL Q2H PRN PRN Reason: Sore Throat Stop: 07/21/23 10:01 Miscellaneous (Carbohydrates For Hypoglycemia ) 15 - 30 gm PO UD PRN PRN Reason: Hypoglycemia Protocol Stop: 07/17/23 14:12 Morphine Sulfate (Morphine Sulfate 4 Mg/Ml 1 Ml Carp\Vial) 4 mg IV Q3H PRN PRN Reason: Pain (6,7,8,9,10) Stop: 07/01/23 09:54 Last Admin: 06/21/23 02:27 Dose: 4 mg Morphine Sulfate (Morphine Sulfate 2 Mg/Ml Carp) 2 mg IV Q3H PRN PRN Reason: Pain (1,2,3,4,5) & Pre PT Stop: 07/01/23 09:54 Last Admin: 06/21/23 22:44 Dose: 2 mg Nystatin (Nystatin Cr 15 Gm Tube) 1 appln EXT UD PRN PRN Reason: Rash Stop: 07/17/23 14:12 Ondansetron HCl (Ondansetron Inj 2 Mg/Ml 2 Ml Vial) 4 mg IV Q4H PRN PRN Reason: Nausea And Vomiting Stop: 07/17/23 11:16 Last Admin: 06/20/23 13:21 Dose: 4 mg Oxycodone/Acetaminophen (Oxycodone/Acetaminophen 5mg/325mg Tab) 2 tab PO Q4H PRN PRN Reason: SEVERE Pain (7,8,9,10) Stop: 07/01/23 09:54 Last Admin: 06/20/23 09:29 Dose: 2 tab Oxycodone/Acetaminophen (Oxycodone/Acetaminophen 5mg/325mg Tab) 1 tab PO Q4H PRN PRN Reason: MODERATE Pain (4,5,6) & Pre PT Stop: 07/01/23 09:54 Last Admin: 06/19/23 20:13 Dose: 1 tab Pantoprazole Sodium (Pantoprazole 40 Mg Tab) [facility] [place] Stop: 07/18/23 08:59 Last Admin: 06/23/23 08:17 Dose: 40 mg Phenol (Chloraseptic (Phenol) 1.4% Soln 180 Ml Btl) 1 sprays MT Q2H PRN PRN Reason: Sore Throat Stop: 07/21/23 10:01 Last Admin: 06/21/23 18:23 Dose: 1 sprays Polyethylene Glycol (Polyethylene (Miralax) 17 Gm Pack) 17 gm PO DAILY PRN PRN Reason: Constipation Stop: 07/19/23 15:13 Last Admin: 06/19/23 18:22 Dose: 17 gm Potassium Chloride (Potassium Chloride Crtab 20 Meq Tabcr) 20 meq PO NOW STA Stop: 06/24/23 08:51 Rosuvastatin Calcium (Rosuvastatin Calcium 5 Mg Tab) 5 mg PO QAM [facility] Stop: 07/18/23 08:59 Last Admin: 06/23/23 08:18 Dose: 5 mg Simethicone (Simethicone 80 Mg Chew) 80 mg PO Q6H PRN PRN Reason: Flatulence Stop: 07/19/23 15:13 Last Admin: 06/19/23 20:13 Dose: 80 mg Vitamin D (Cholecalciferol 25 Mcg (1000 Units) Tab) 25 mcg [facility] [place] Stop: 07/18/23 08:59 Last Admin: 06/23/23 08:18 Dose: 25 mcg
[2023-06-24] MEDS: POTASSIUM CHLORIDE CRTAB 20 MEQ TABCR PO STA (09:44)
[2023-06-24] MEDS: MAGNESIUM SULFATE / D5W 1 GM/100 ML BAG IV ONE (09:44)
[2023-06-24] MEDS: INSULIN ASPART PER UNIT CHARGE SC SCH (09:46)
[2023-06-24] MEDS: MAGNESIUM OXIDE 400 MG TAB PO SCH (09:52)
--- NOTE | 2023-06-24 10:04 | Surgery Progress Note ---
Date of Service June 24, 2023 Assessment & Plan (1) Cholelithiasis: Plan: wean O2 to off dischrge today or tomorrow once O2 not required. Admission and Anticipated Discharge Date Admission Date: June 20, 2023 Subjective feels better no abdominal pain taking po Review of Systems Constitutional: no fever, no chills and no anorexia Respiratory: no cough and no dyspnea Cardiovascular: no chest pain Gastrointestinal: no abdominal pain, no nausea and no vomiting Genitourinary: no dysuria Neurologic: no localized weakness and no generalized weakness Psychiatric: no behavioral changes Physical Exam Constitutional: WD/WN, vitals as above Respiratory: normal respiratory effort, lungs clear to auscultation Cardiovascular: RRR, no murmur, no edema Gastrointestinal (Abdomen): Inspection/Auscultation: abdomen normal to inspection and normal bowel sounds; abdomen not distended Percussion/Palpation: abdomen soft; abdomen nontender, no guarding and abdomen not rigid Musculoskeletal: Head/Neck/Chest: normocephalic and head atraumatic Results & Data Vital Signs (Past 12 Hours) Vital Signs Temp Pulse Resp BP Pulse Ox O2 Del Method 06/24/23 07:57 36.8 C 80 16 122/70 95 06/24/23 04:05 81 06/24/23 03:49 36.6 C 86 20 142/79 H 93 06/24/23 00:09 36.5 C 77 20 139/78 97 06/23/23 22:09 Room Air
--- NOTE | 2023-06-25 10:22 | Coding Query ---
Your help is needed for correct coding of this account; please clarify if the patients Post-operative Ileus was: ( ) expected out of the surgery ( X) unexpected complication from the surgery ( )other please specify Thank you Melvina ROMERO
== END 2023-06-24 18:51 | disposition home health service (06) | DRG 418 ==
LOC: ASU 06:52 → 2W 06:52

== ENCOUNTER 2024-09-24 09:03 | Inpatient (IN) ==
[2024-09-24] MEDS: ONDANSETRON INJ 2 MG/ML 2 ML VIAL IV STA (10:07)
[2024-09-24] MEDS: MoRPHine SULFATE 4 MG/ML 1 ML CARP\\VIAL IV STA (10:07)
--- NOTE | 2024-09-24 10:16 | XRay Report ---
XR shoulder RT min 2V routine, XR humerus RT 2V CLINICAL HISTORY: fall COMPARISON: None FINDINGS: There is an acute minimally displaced mildly comminuted fracture at the proximal humerus i nvolving the surgical neck and undermining the greater tuberosity. No other fracture or dislocation s een at the right shoulder or right humerus. IMPRESSION: Acute fracture proximal humerus. ACT 112: Negative or not required by law. Electronically signed by: Elver Wiley M.D. 09/24/2024 10:15 AM
--- NOTE | 2024-09-24 10:18 | XRay Report ---
XR knee RT 1 or 2V routine CLINICAL HISTORY: fall COMPARISON: None FINDINGS: There is severe medial compartment narrowing with osteophytosis. No fracture or dislocatio n seen. There is a moderate joint effusion with possible layering on the lateral view, suggesting pos sible lipohemarthrosis. IMPRESSION: Moderate joint effusion with possible layering with no fracture seen. This suggests possi ble occult nondisplaced fracture at the right knee. ACT 112: Negative or not required by law. Electronically signed by: Elver Wiley M.D. 09/24/2024 10:17 AM
[2024-09-24 10:57] LABS: Chlamydia pneumoniae PCR Not Detected (NotDetected); Coronavirus 229E PCR Not Detected (NotDetected); Coronavirus CoV-2 (COVID19)PCR Not Detected (NotDetected); Coronavirus HKU1 PCR Not Detected (NotDetected); Coronavirus NL63 PCR Not Detected (NotDetected); Coronavirus OC43PCR Not Detected (NotDetected); Human Metapneumovirus PCR Not Detected (NotDetected); Parainfluenza Virus 1 PCR Not Detected (NotDetected); Parainfluenza Virus 2 PCR Not Detected (NotDetected); Parainfluenza Virus 3 PCR Not Detected (NotDetected); Parainfluenza Virus 4 PCR Not Detected (NotDetected); Respiratory Syncytial VirusPCR Not Detected (NotDetected); Rhinovirus/Enterovirus PCR Not Detected (NotDetected)
[2024-09-24] MEDS: ACETAMINOPHEN 1,000 MG/100 ML VIAL IV STA (11:18)
[2024-09-24] MEDS: KETOROLAC 30 MG/ML VIAL IV STA (11:18)
--- NOTE | 2024-09-24 11:52 | CT Scan Report ---
CT SCAN OF THE RIGHT KNEE WITHOUT IV CONTRAST CLINICAL HISTORY: Right knee injury. Abnormal x-ray. COMPARISON STUDY: Right knee x-rays dated 09/24/2024. TECHNIQUE: CT scan of the right knee is performed from the distal femur to the proximal tibia and fi bula. Images are reviewed in the axial, sagittal, and coronal planes. IV contrast was not administere d for this examination. A dose lowering technique was utilized adhering to the principles of ALARA. CT DOSE: 533.6 mGy.cm FINDINGS: The skeletal structures are osteopenic. There is a moderate to large joint effusion with li pohemarthrosis indicating acute fracture. There is a subtle impacted fracture along the anterior elise ex of the lateral tibial plateau. This is best seen on coronal image #43 and sagittal image #37. Ther e is only minimal depression at this site. The medial tibial plateau is intact. The distal femur, pro ximal fibula, and patella are maintained. There is moderate degenerative narrowing in the medial comp artment. Mild narrowing is seen in the lateral compartment. There is generalized atrophy of the regio nal musculature. IMPRESSION: 1. There is a large joint effusion with lipohemarthrosis indicating acute fracture. 2. There is a subtle impacted fracture along the anterior aspect of the lateral tibial plateau. 3. No additional acute fracture is seen. 4. Osteopenia and degenerative change as above. ACT 112: Negative or not required by law. Electronically signed by: Nahid Petit M.D. 09/24/2024 11:51 AM
[2024-09-24] MEDS ORDERED: ACETAMINOPHEN 1,000 MG/100 ML VIAL IV PRN (11:55)
--- NOTE | 2024-09-24 12:41 | History & Physical Report ---
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 #Mechanical Fall #Right Tibial Plateau Fracture #Right Humeral Fracture #Ambulatory Dysfunction -patient with right tibial fracture, right humeral fracture 2/2 mechanical fall -hypotensive episode in ED with good recovery post morphine IV 4mg Plan: -ortho consult, appreciate recs -nonoperative management at this time -pain control with IV tylenol and breakthrough oxycodone, would avoid IV medications if possible -PT/OT, right sided nonweightbearing per ortho, sling for right humerus placed in ED -likely needs SNF -start eliquis 2.5 PO bid for DVT prophylaxis per ortho recs -IS given high risk for atelectasis #MANDA -home CPAP ordered #DM Type 2 -only on farxiga at home -SSI ordered -continue protonix #HTN -continue lisinopril I spent a total of 70 minutes in direct patient care, including [id number] time with the patient and/or family, reviewing medical records, ordering and reviewing diagnostic tests, and coordinating care with other healthcare providers. This time includes: history taking, physical examination, medical decision making, counseling, ECG interpretation, imaging interpretation, lab interpretation, orders, and education, excluding time spent in the performance of separately billed services. History of Present Illness Chief Complaint: -fall Primary Care Provider: Priscilla Wilkerson, DO 73 yo female with pmhx of hx of DCIS of left breast, class III obesity, MANDA on CPAP, DM Type 2, HTN, HLD who presents for fall. Last admission was in 2023 for EGD and colonoscopy. In the ED, noted to have right knee and right arm fractures, ortho consulted, recommended PT/OT and pain control, admitted to medicine for further workup. Had hypotensive episode in ED to 4mg IV morphine. Patient seen and examined at bedside. Patient doing ok today. States her right knee and right arm hurt significantly. States she was walking to the bathroom, fell on her right side hitting her arm against the wall in the process. States it was a mechanicall fall, no LOC, no prodrome or other symptoms. Denies chest pain, SOB. States she falls occasionally when her feet give out on her. No tobacco use, no drug use, no alcohol use, DNRDNI discussed with patient and family. Allergies Allergy/AdvReac Type Severity Reaction Status Date / Time adhesive Allergy Mild bandaids-redness Verified 06/15/24 09:29 / rash ciprofloxacin Allergy Mild RASH Verified 06/15/24 09:29 minocycline Allergy Mild RASH Verified 06/15/24 09:29 Home Medications Medication Instructions Recorded Confirmed Type cholecalciferol (vitamin D3) 25 1,000 units PO QAM 09/29/19 09/24/24 History mcg (1,000 unit) capsule nystatin 100,000 unit/gram topical 1 appln topical UD PRN Rash 09/29/19 09/24/24 History cream CPAP Supplies #1 ea 11/04/19 06/15/24 Rx cetirizine 10 mg tablet (Allergy 10 mg PO QAM 11/10/20 09/24/24 History Relief (cetirizine)) peg 400-propylene glycol (PF) 0.4 1 drp ophthalmic (eye) QAM 09/28/21 09/24/24 History %-0.3 % eye drops in a dropperette (Systane (PF)) lisinopril 10 mg tablet (Zestril) 10 mg PO QAM 04/10/23 09/24/24 History amlodipine 10 mg tablet (Norvasc) 10 mg PO QAM 06/17/23 09/24/24 History rosuvastatin 5 mg tablet (Crestor) 5 mg PO QAM 06/17/23 09/24/24 History dapagliflozin propanediol 10 mg 0 mg PO DAILY 06/15/24 09/24/24 History tablet (Farxiga) pantoprazole 40 mg tablet,delayed 40 mg PO DAILY 09/24/24 09/24/24 History release 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) Dry eye Sensorineural hearing loss (SNHL) of both ears Hypercholesterolemia Headache Facial pain Perforated tympanic membrane on examination Foreign body of ear, right Encounter for pre-operative examination Sensation of pressure in bladder area Flank pain Type 2 diabetes mellitus Left ureteral calculus Left renal stone Hepatic steatosis (07/2019) Hypertension Tracheomalacia Obstructive sleep apnea Laryngeal edema Gait instability GERD without esophagitis Colon polyps BMI 31.0-31.9,adult Arthritis Respiratory failure Medical History Seasonal allergies History of colon polyps Arthritis History of COVID-19 (2021) no hosp; resolved History of anesthesia reaction states has hx of issues with "low oxygen levels" after surgery; after recent Cholecystectomy, 05/2023 was hospitalized at [place] w/ low oxygen and severe constipation History of airway aspiration hx aspiration no issues noted with 04/2023 surgery under [place] (anesthesia done with ETT given risk for aspiration) Dry eyes Skin cancer hx Fatty liver DM type 2 (diabetes mellitus, type 2) Morbid obesity Restless legs HX Intubation granuloma Per 12/2015 otolaryngology (Dr. 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 ETT #7. DL x 1 atraumatic) Dyslipidemia Migraine hx Diverticular disease GERD (gastroesophageal reflux disease) controlled Cancer - HX right breast (late ) s/p EBRT - Left breast cancer dx June or July 2022 - sx intervention x 2 & radiation: finished radiation Nov 2022. Hypertension Sleep apnea CPAP daily use. Kidney stones 05/10/23- s/p laser litho Surgical History History of lumpectomy of left breast (10/03/22) Re-excision of posterior margin from 09/05/22 lumpectomy History of lumpectomy of left breast (09/05/22) History of temporal artery biopsy (10/06/21) Left Temporal Artery Biopsy(Left) - Jenaro Hamm, Ovarian cyst with removal History of cataract surgery (~03/2018) bilat History of arthroscopy RIGHT KNEE History of herniorrhaphy A CHILD History of appendectomy History of esophagogastroduodenoscopy (EGD) History of colonoscopy H/O Mohs micrographic surgery for skin cancer Hx of lumpectomy (2000) RIGHT BREAST/NO LYMPH NODE REMOVAL-RADIATION History of tonsillectomy History of cystoscopy 05/10/23- w/ laser [place], [place] History of lithotripsy Right ureteral ESWL: 03/21/18: atraumatic x1 LMA#4 at [facility] [place] HX MULTIPLE LITHO Family History Sister Family history of diabetes mellitus Aunt Breast cancer Father Myocardial infarction Mother , Passed Age 75 Diabetes Heart disease Pancreatic cancer, Onset Age: 75 Brother No problems noted. Brother No problems noted. Sister No problems noted. Sister Skin cancer Daughter No problems noted. Daughter No problems noted. 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 Beliefs That Will Affect Care: None marital status: Current Living Situation: Spouse and Family current occupational status: retired How many Children do You have: 2 Feels Safe at Home: Yes Childhood Exposure to Second-Hand Smoke: Yes (Father smoked in home) Diet Comment: oxylate diet - due to kidney stones caffeine: Yes during the past year weight has: remained stable Dental Care, Regularly: No Physical Activity Frequency: Does not Exercise Seatbelt Use: always Assistive Devices: Cane and CPAP Review of Systems Review of Systems: -negative unless listed above Physical Exam Physical Exam: Gen: A&O NAD, class III obesity HEENT: NCAT, EOMI, not icteric. External ears normal. No rhinorrhea. Moist mucous membranes. Neck: Supple, full range of motion, no observable masses, No meningeal sign. Lungs: No Respiratory distress. CV: RRR, no edema. Abdomen: Soft, nondistended, No rebound tenderness. MSK: tenderness/swelling of right knee, worst around joint line, right arm tenderness worst on right shoulder Skin: No rashes, petechiae, lesions. Normal color per patient. Neuro: Normal Gait, Grossly intact. Psych: Appropriate for situation. Results & Data Results & Data Vital Signs (Past 12 Hours) Vital Signs Temp Pulse Resp BP Pulse Ox O2 Del Method 09/24/24 11:54 69 22 96 09/24/24 11:48 67 15 97 09/24/24 11:24 71 21 96 09/24/24 11:00 113/72 09/24/24 11:00 113/72 09/24/24 10:54 66 17 96 09/24/24 10:51 72 20 96 09/24/24 10:48 68 20 97 09/24/24 10:36 65 17 92 09/24/24 10:30 89/63 L 09/24/24 10:27 72 20 90 09/24/24 10:21 74 14 09/24/24 10:12 74 09/24/24 09:20 18 09/24/24 09:20 37 C 78 19 136/104 H 94 Room Air Laboratory Results -personally reviewed, no leukocytosis, creatinne at baseline, no blood loss anemia Medications Administered Acetaminophen (Acetaminophen 500 Mg Tab) 1,000 mg PO Q8H MATILDA Stop: 10/24/24 17:59 Last Admin: 09/24/24 17:57 Dose: 1,000 mg Documented By: AYDIN Miscellaneous (--Dapagliflozin Propanediol [Farxiga] 10 Mg Tabletorder Awaiting Action) 1 each N/A QS MATILDA Stop: 10/24/24 15:59 Last Admin: 09/24/24 17:44 Dose: Not Given Documented By: STAFF RN Code Status & VTE Plan Code Status -DNRDNI, discussed with patient and family (1) Fracture, tibial plateau Encounter type: initial encounter Fracture type: closed Laterality: right Qualified Code(s): S82.141A - Displaced bicondylar fracture of right tibia, initial encounter for closed fracture (2) Fracture of proximal end of humerus Encounter type: initial encounter Fracture alignment: nondisplaced Fracture morphology: other fracture Fracture type: closed Laterality: right Qualified Code(s): S42.294A - Other nondisplaced fracture of upper end of right humerus, initial encounter for closed fracture
--- NOTE | 2024-09-24 12:59 | Orthopedic Consultation ---
Date of Consultation September 24, 2024 Assessment & Plan (1) Morbid obesity with BMI of 40.0-44.9, adult: (2) Type 2 diabetes mellitus: (3) Fracture of greater tuberosity of right humerus: I discussed with the patient that she is in a difficult situation because of her injuries. The good news is that nonoperative treatment is indicated for both the right shoulder and her right knee. Sling immobilization will be the treatment for her right greater tuberosity fracture with x-ray follow-up needed 1 week and 2 weeks from injury to ensure there is no displacement. For her right knee, she needs to be nonweightbearing for the next 4 to 6 weeks. No knee immobilizer brace is needed. Range of motion should be encouraged of her right knee so she does not get too stiff. Follow-up knee x-rays will be needed 2 weeks from now. Because of having 2 extremities injured, and the weightbearing restrictions she is going to need to be limited to using a wheelchair for transportation. She should be safe to transfer from her bed to a chair with assistance so long as she is not using her right arm to support herself. Because of these limitations she will very likely need to be in a rehab facility or long term facility for at least 4 to 6 weeks. Given her relative immobilization, and elevated BMI, recommend either Xarelto or Eliquis for DVT prophylaxis per the internal medicine team. Feel free to contact orthopedics with any questions or concerns. (4) Closed fracture of lateral portion of right tibial plateau: (5) Arthritis of right knee: (6) Osteopenia: History of Present Illness Reason for Consultation: Right greater tuberosity fracture, right tibial plateau fracture History of Present Illness 73-year-old female, multiple medical comorbidities including osteopenia, morbid obesity with body mass index of 43, type 2 diabetes with neuropathy, hypertension, GERD, obstructive sleep apnea on CPAP, and history of breast cancer, fell at home earlier today. She says she tripped and tried to catch herself as she hit an oak table on the way down pushing the table out of the way. When she hit the ground she hit both her right knee and her right shoulder. Both were painful, however her right shoulder was more painful. She was brought to the emergency room where x-rays were obtained of the right humerus and shoulder and the right knee. These demonstrate a greater tuberosity fracture. X-rays and a CT scan of the right knee were obtained demonstrating a lateral tibial plateau fracture. Orthopedics was consulted for evaluation and management. Patient was seen and examined in the emergency room. She states that she has had trouble with her right knee for many years. She has had it scoped in the past by Dr. Black. She is right-hand dominant. She denies any previous problems with her right shoulder. She has a little bit of neuropathy in her toes but no new numbness or tingling since the accident earlier today. She lives in [place]. She says there are total of 3 stairs to get into the house. Inside the house there is a step down to get to the laundry room. It is an older house so the doorways are quite narrow. Allergies Allergy/AdvReac Type Severity Reaction Status Date / Time adhesive Allergy Mild bandaids-redness Verified 06/15/24 09:29 / rash ciprofloxacin Allergy Mild RASH Verified 06/15/24 09:29 minocycline Allergy Mild RASH Verified 06/15/24 09:29 Home Medications Medication Instructions Recorded Confirmed Type cholecalciferol (vitamin D3) 25 1,000 units PO QAM 09/29/19 09/24/24 History mcg (1,000 unit) capsule nystatin 100,000 unit/gram topical 1 appln topical UD PRN Rash 09/29/19 09/24/24 History cream CPAP Supplies #1 ea 11/04/19 06/15/24 Rx cetirizine 10 mg tablet (Allergy 10 mg PO QAM 11/10/20 09/24/24 History Relief (cetirizine)) peg 400-propylene glycol (PF) 0.4 1 drp ophthalmic (eye) QA 09/28/21 09/24/24 History %-0.3 % eye drops in a dropperette (Systane (PF)) lisinopril 10 mg tablet (Zestril) 10 mg PO QAM 04/10/23 09/24/24 History amlodipine 10 mg tablet (Norvasc) 10 mg PO QAM 06/17/23 09/24/24 History rosuvastatin 5 mg tablet (Crestor) 5 mg PO QAM 06/17/23 09/24/24 History dapagliflozin propanediol 10 mg 0 mg PO DAILY 06/15/24 09/24/24 History tablet (Farxiga) pantoprazole 40 mg tablet,delayed 40 mg PO DAILY 09/24/24 09/24/24 History release Patient History Medical History Seasonal allergies History of colon polyps Arthritis History of COVID-19 (2021) no hosp; resolved History of anesthesia reaction states has hx of issues with "low oxygen levels" after surgery; after recent Cholecystectomy, 05/2023 was hospitalized at [place] w/ low oxygen and severe constipation History of airway aspiration hx aspiration no issues noted with 04/2023 surgery under [facility] (anesthesia done with ETT given risk for aspiration) Dry eyes Skin cancer hx Fatty liver DM type 2 (diabetes mellitus, type 2) Morbid obesity Restless legs HX Intubation granuloma Per 12/2015 otolaryngology (Dr. 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 ETT #7. DL x 1 atraumatic) Dyslipidemia Migraine hx Diverticular disease GERD (gastroesophageal reflux disease) controlled Cancer - HX right breast (late ) s/p EBRT - Left breast cancer dx June or July 2022 - sx intervention x 2 & radiation: finished radiation Nov 2022. Hypertension Sleep apnea CPAP daily use. Kidney stones 05/10/23- s/p laser litho Surgical History History of lumpectomy of left breast (10/03/22) Re-excision of posterior margin from 09/05/22 lumpectomy History of lumpectomy of left breast (09/05/22) History of temporal artery biopsy (10/06/21) Left Temporal Artery Biopsy(Left) - Jenaro Hamm, Ovarian cyst with removal History of cataract surgery (~03/2018) bilat History of arthroscopy RIGHT KNEE History of herniorrhaphy A CHILD History of appendectomy History of esophagogastroduodenoscopy (EGD) History of colonoscopy H/O Mohs micrographic surgery for skin cancer Hx of lumpectomy (2000) RIGHT BREAST/NO LYMPH NODE REMOVAL-RADIATION History of tonsillectomy History of cystoscopy 05/10/23- w/ [place], [place] History of lithotripsy Right ureteral ESWL: 03/21/18: atraumatic x1 LMA#4 at [facility] [place] HX MULTIPLE LITHO Family History Sister Family history of diabetes mellitus Aunt Breast cancer Father Myocardial infarction Mother , Passed Age 75 Diabetes Heart disease Pancreatic cancer, Onset Age: 75 Brother No problems noted. Brother No problems noted. Sister No problems noted. Sister Skin cancer Daughter No problems noted. Daughter No problems noted. Denies family history of Ovarian cancer Prostate cancer Colorectal cancer Social History Smoking Status: Never smoker Second Hand Exposure: Yes (father smoked in home); Do You Dip or Chew Tobacco: No; Hx Alcohol Use: Yes Alcohol type: beer Alcohol Intake Frequency: 2-4 x/Month Hx Substance Use: No Preferred Language: Syrian Communication Ability: Effective Visual Impairment: Limited Hearing Ability: Hard of Hearing Vocational Placement Specialist Required: No Beliefs That Will Affect Care: None marital status: Current Living Situation: Spouse and Family current occupational status: retired How many Children do You have: 2 Feels Safe at Home: Yes Childhood Exposure to Second-Hand Smoke: Yes (Father smoked in home) Diet Comment: oxylate diet - due to kidney stones caffeine: Yes during the past year weight has: remained stable Dental Care, Regularly: No Physical Activity Frequency: Does not Exercise Seatbelt Use: always Assistive Devices: Cane and CPAP Physical Exam Physical Exam: On exam she is a pleasant female alert and oriented x 3 in no acute distress. Right shoulder exam reveals her skin to be intact. There is no tenderness palpation over the clavicle, scapular spine, or acromion. She is tender over the greater tuberosity laterally. Mild swelling is noted here. No bruising. Shoulder range of motion and strength testing deferred secondary to the known fracture. Distally she is able to fire EPL F[employer] and interossei without difficulty. Fires wrist flexors and wrist extensors. She has some discomfort in her shoulder with active pronation and supination of her forearm. Sensory intact to light touch median ulnar radial and axillary nerve distributions. Right knee exam reveals the patient to have fluid in the knee. She is tender to palpation of the suprapatellar pouch both medially and laterally. Nontender over the patella. She has medial and lateral joint line tenderness, worst over the lateral tibial plateau. She is unable to do a straight leg raise. Passive knee range of motion is limited from 5 degrees to 30 degrees. She has palpable dorsalis pedis and posterior tibial pulses. Sensory intact to moving light touch L3-S1 dermatomes. Skin is intact. Results & Data Vital Signs (Past 12 Hours) Vital Signs Temp Pulse Pulse Resp BP BP Pulse Ox 09/24/24 12:34 73 20 102/72 97 09/24/24 11:54 69 22 96 09/24/24 11:48 67 15 97 09/24/24 11:24 71 21 96 09/24/24 11:00 113/72 09/24/24 11:00 113/72 09/24/24 10:54 66 17 96 09/24/24 10:51 72 20 96 09/24/24 10:48 68 20 97 09/24/24 10:36 65 17 92 09/24/24 10:30 89/63 L 09/24/24 10:27 72 20 90 09/24/24 10:21 74 14 09/24/24 10:12 74 09/24/24 09:20 18 09/24/24 09:20 37 C 78 19 136/104 H 94 O2 Del Method 09/24/24 12:34 Room Air 09/24/24 11:54 09/24/24 11:48 09/24/24 11:24 09/24/24 11:00 09/24/24 11:00 09/24/24 10:54 09/24/24 10:51 09/24/24 10:48 09/24/24 10:36 09/24/24 10:30 09/24/24 10:27 09/24/24 10:21 09/24/24 10:12 09/24/24 09:20 09/24/24 09:20 Room Air Diagnostic Findings I independently interpreted her shoulder x-rays and humerus x-rays done today. I agree with the radiologist that there is a minimally displaced greater tuberosity fracture of the right shoulder. Humerus bone appears osteoporotic. I also independently interpreted her right knee x-rays and right knee CT scan. Again I agree with the radiologist that there is a nondisplaced anterior lateral tibial plateau fracture with lipohemarthrosis consistent with a fracture. Tricompartmental osteophyte formation is noted with medial joint space narrowing consistent with severe underlying osteoarthritis. Finally, I reviewed her DEXA scan done in 2019 which showed evidence of osteopenia.
--- NOTE | 2024-09-24 14:23 | Emergency Department Note ---
Impression & Plan Fracture of proximal end of humerus, Fracture, tibial plateau ED Provider Note CHIEF COMPLAINT: Fall with shoulder pain HISTORY OF PRESENTING ILLNESS: Patient is a 73-year-old female who presents to the emergency department today for complaints of a fall with shoulder pain via EMS. She states that she was walking and she tripped and fell striking her kitchen table with her right shoulder and falling onto her right knee. She reports pain is a 10/10 and is a sharp stabbing. She is unable to perform range of motion without severe pain. She denies any numbness or tingling in the affected extremity. At the time of the fall she had attempted to get up but was unable to get up or ambulate due to the right knee pain and the right shoulder pain. She denies chest pain, sob, breathing difficulties, abdominal pain, headache, fevers/chills, blood in stool or urine, any recent illness, or any recent travel. REVIEW OF SYSTEMS: See HPI for pertinent positives and pertinent negatives. ALLERGIES: See below MEDICATIONS: See below PAST MEDICAL HISTORY: See below PHYSICAL EXAM: VITALS: Vitals are noted on the nurse's note and reviewed by myself. GENERAL: Non toxic, in no acute distress, non-diaphoretic. SKIN: No bruising or erythema noted to the right shoulder or the right knee. There is mild swelling to the right knee and right shoulder. Capillary refill <2 sec. EYES: PERRLA. EOMI. Conjunctivae without injection, sclerae without icterus. NOSE: Patent without discharge. MOUTH: Mucous membranes moist. Uvula midline. Airway patent. NECK: Supple without nuchal rigidity. HEART: Regular rate and rhythm without murmurs gallops or rubs. LUNGS: Clear to auscultation bilaterally without wheezes, rales or rhonchi. No retractions or accessory muscle use. ABDOMEN: Positive bowel sounds x 4. Normal tympanic percussion. Soft, nontender to palpation. MUSCULOSKELETAL: Unable to perform range of motion to the right upper extremity due to severe pain. Range of motion intact to the right knee however with increased pain. No gross musculoskeletal defects. NEURO: Sensation is intact. Right radial and right pedal pulse 3/5 patient was alert and oriented. No focal neurological deficits. DIFFERENTIAL DIAGNOSIS: Differential diagnosis includes: shoulder contusion, shoulder fracture, shoulder dislocation, thoracic outlet syndrome, adhesive capsulitis, rotator cuff tear, clavicle fracture, apical pneumonia, pneumothorax, hemothorax, cardiac disease, among others. ED COURSE AND MEDICAL DECISION MAKING: HISTORY FROM INDEPENDENT HISTORIAN: History was provided by the patient and her who is at bedside. MONITOR: Continuous monitoring manager: Order was placed for continuous monitoring manager. Patient was placed on the monitoring manager and continuous pulse ox. Patient was noted to be in normal sinus rhythm at an initial rate of 65 bpm per my interpretation. INTERPRETATION OF LABS: I interpreted the labs with full lab results as below in the lab section of this note. Laboratory results pertinent to the emergent complaint are discussed in the MDM section below. The patient was advised to follow up with their PCP and/or specialist(s) for further outpatient monitoring and management of any abnormal results. INTERPRETATION OF IMAGING: Imaging studies were interpreted by myself and read by radiology as per the imaging section of this note. The patient was advised to follow up with their PCP and/or specialist(s) for further outpatient management of any non-emergent abnormal findings. CHRONIC MEDICAL/SOCIAL CONDITIONS AFFECTING CARE: No social concerns were identified as barriers to patients care. ESCALATION OF CARE CONSIDERED: I considered admission on this patient due to the shoulder and knee fracture and inability to ambulate at this time due to the pain. CONSULTATIONS: I had a meaningful discussion about this patient with Dr. Briones who agrees with my assessment and the treatment plan. I also consulted with the hospitalist Luis Angel Barnett who accepts the patient for admission to the hospital. I also consulted with Dr. Arun aranda from orthopedics who will see the patient here in the emergency department. SUMMARY: I examined the patient for complaints of right shoulder and right knee pain. A physical exam and history were performed. Nursing notes, EMR, and medication list were personally reviewed. X-ray of the right shoulder did show an acute fracture of the proximal humerus. X-ray of the right knee showed a large joint effusion with lipohemarthrosis with a subtotal impacted fracture along the anterior aspect of the lateral tibial plateau. On arrival the patient was in significant pain and was given morphine 4 mg and Zofran 4 mg IV with immediate improvement in pain and discomfort. However after administration of the morphine patient did begin to desat and nursing had placed her on 2 L of oxygen by nasal cannula with immediate improvement in oxygen saturation. Her blood pressure had also dropped significantly after the morphine the patient remained asymptomatic and stable. On discussing this with the patient she states that that typically does happen whenever she takes narcotic pain medications. I did discuss the above findings of the x-rays with the patient and her and we discussed disposition plans. Due to the fractures of the right shoulder and the right knee and the patient's decreased mobility she does not feel that she is going to be able to safely be home especially with her severe pain currently. I did talk with Dr. Luis Angel Barnett who did accept the patient for admission to the hospital. I also consulted with Dr. Arun aranda from orthopedics who will see the patient here in the emergency department. The patient was given a shoulder immobilizer. On reevaluation she did state that she had some pain that was returning she was given a gram of Tylenol IV and 30 mg of Toradol IV with some improvement in pain and discomfort. Orders for CBC and CMP for admission were added however they were still pending upon admission. At this time the patient's care was transferred to the hospitalist. DIAGNOSIS: Proximal humerus fracture, lateral tibial plateau fracture TREATMENT PLAN/DISCHARGE INSTRUCTIONS: Admit to the hospitalist. 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) Dry eye Sensorineural hearing loss (SNHL) of both ears Hypercholesterolemia Headache Facial pain Perforated tympanic membrane on examination Foreign body of ear, right Encounter for pre-operative examination Sensation of pressure in bladder area Flank pain Type 2 diabetes mellitus Left ureteral calculus Left renal stone Hepatic steatosis (07/2019) Hypertension Tracheomalacia Obstructive sleep apnea Laryngeal edema Gait instability GERD without esophagitis Colon polyps BMI 31.0-31.9,adult Arthritis Respiratory failure Medical History Seasonal allergies History of colon polyps Arthritis History of COVID-19 (2021) no hosp; resolved History of anesthesia reaction states has hx of issues with "low oxygen levels" after surgery; after recent Cholecystectomy, 05/2023 was hospitalized at [facility] w/ low oxygen and severe constipation History of airway aspiration hx aspiration no issues noted with 04/2023 surgery under [facility] (anesthesia done with ETT given risk for aspiration) Dry eyes Skin cancer hx Fatty liver DM type 2 (diabetes mellitus, type 2) Morbid obesity Restless legs HX Intubation granuloma Per 12/2015 otolaryngology (Dr. 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 ETT #7. DL x 1 atraumatic) Dyslipidemia Migraine hx Diverticular disease GERD (gastroesophageal reflux disease) controlled Cancer - HX right breast (late ) s/p EBRT - Left breast cancer dx June or July 2022 - sx intervention x 2 & radiation: finished radiation Nov 2022. Hypertension Sleep apnea CPAP daily use. Kidney stones 05/10/23- s/p laser litho Surgical History History of lumpectomy of left breast (10/03/22) Re-excision of posterior margin from 09/05/22 lumpectomy History of lumpectomy of left breast (09/05/22) History of temporal artery biopsy (10/06/21) Left Temporal Artery Biopsy(Left) - Jenaro Hamm, Ovarian cyst with removal History of cataract surgery (~03/2018) bilat History of arthroscopy RIGHT KNEE History of herniorrhaphy A CHILD History of appendectomy History of esophagogastroduodenoscopy (EGD) History of colonoscopy H/O Mohs micrographic surgery for skin cancer Hx of lumpectomy (2000) RIGHT BREAST/NO LYMPH NODE REMOVAL-RADIATION History of tonsillectomy History of cystoscopy 05/10/23- w/ laser litho, [place] History of lithotripsy Right ureteral ESWL: 03/21/18: atraumatic x1 LMA#4 at [facility] [place] HX MULTIPLE LITHO Family History Sister Family history of diabetes mellitus Aunt Breast cancer Father Myocardial infarction Mother , Passed Age 75 Diabetes Heart disease Pancreatic cancer, Onset Age: 75 Brother No problems noted. Brother No problems noted. Sister No problems noted. Sister Skin cancer Daughter No problems noted. Daughter No problems noted. Denies family history of Ovarian cancer Prostate cancer Colorectal cancer Social History Smoking Status: Never smoker Second Hand Exposure: Yes (father smoked in home); Do You Dip or Chew Tobacco: No; Hx Alcohol Use: No Hx Substance Use: No Preferred Language: Croatian Communication Ability: Effective Visual Impairment: Limited Hearing Ability: Hard of Hearing Apple Packing Header Required: No Beliefs That Will Affect Care: None marital status: Current Living Situation: Spouse and Family Current Living Situation Comment: spouse and daughter current occupational status: retired How many Children do You have: 2 Feels Safe at Home: Yes Childhood Exposure to Second-Hand Smoke: Yes (Father smoked in home) Diet Comment: oxylate diet - due to kidney stones caffeine: Yes during the past year weight has: remained stable Dental Care, Regularly: No Physical Activity Frequency: Does not Exercise Seatbelt Use: always Assistive Devices: Cane and Glasses Allergies Allergies Allergy/AdvReac Type Severity Reaction Status Date / Time adhesive Allergy Mild bandaids-redness Verified 06/15/24 09:29 / rash ciprofloxacin Allergy Mild RASH Verified 06/15/24 09:29 minocycline Allergy Mild RASH Verified 06/15/24 09:29 Home Meds Home Medications Medication Instructions Recorded Confirmed cholecalciferol (vitamin D3) 25 1,000 units PO QAM 09/29/19 09/24/24 mcg (1,000 unit) capsule nystatin 100,000 unit/gram topical 1 appln topical UD PRN Rash 09/29/19 09/24/24 cream cetirizine 10 mg tablet (Allergy 10 mg PO QAM 11/10/20 09/24/24 Relief (cetirizine)) peg 400-propylene glycol (PF) 0.4 1 drp ophthalmic (eye) QAM 09/28/21 09/24/24 %-0.3 % eye drops in a dropperette (Systane (PF)) lisinopril 10 mg tablet (Zestril) 10 mg PO QAM 04/10/23 09/24/24 amlodipine 10 mg tablet (Norvasc) 10 mg PO QAM 06/17/23 09/24/24 rosuvastatin 5 mg tablet (Crestor) 5 mg PO QAM 06/17/23 09/24/24 dapagliflozin propanediol 10 mg 0 mg PO DAILY 06/15/24 09/24/24 tablet (Farxiga) pantoprazole 40 mg tablet,delayed 40 mg PO DAILY 09/24/24 09/24/24 release Previous Rx's Medication Instructions Recorded CPAP Supplies #1 ea 11/04/19 Results & Data (ED) Vital Signs Vital Signs - 24 hr 09/24/24 09:20 09/24/24 09:20 09/24/24 10:12 Temperature 37 C Temperature Source Oral Pulse Rate 78 74 Pulse Rate from SpO2 Sensor Respiratory Rate 19 18 Respiratory Effort / Characteristics Non-Labored Spontaneous Non-Labored Spontaneous Respiratory Depth Normal Normal Blood Pressure 136/104 H Blood Pressure Mean 114 Pulse Oximetry 94 Oxygen Delivery Method Room Air Sepsis Recent Fever Within 48 Hours No Sepsis New/Unexplained Change in Mental Status N/A Sepsis Action Taken by Nursing No Action Required 09/24/24 10:21 09/24/24 10:27 09/24/24 10:30 Temperature Temperature Source Pulse Rate 74 72 Pulse Rate from SpO2 Sensor 72 71 Respiratory Rate 14 20 Respiratory Effort / Characteristics Respiratory Depth Blood Pressure 89/63 L Blood Pressure Mean 81 Pulse Oximetry 90 Oxygen Delivery Method Sepsis Recent Fever Within 48 Hours Sepsis New/Unexplained Change in Mental Status Sepsis Action Taken by Nursing 09/24/24 10:36 09/24/24 10:48 09/24/24 10:51 Temperature Temperature Source Pulse Rate 65 68 72 Pulse Rate from SpO2 Sensor 66 69 71 Respiratory Rate 17 20 20 Respiratory Effort / Characteristics Respiratory Depth Blood Pressure Blood Pressure Mean Pulse Oximetry 92 97 96 Oxygen Delivery Method Sepsis Recent Fever Within 48 Hours Sepsis New/Unexplained Change in Mental Status Sepsis Action Taken by Nursing 09/24/24 10:54 09/24/24 11:00 09/24/24 11:00 Temperature Temperature Source Pulse Rate 66 Pulse Rate from SpO2 Sensor 66 Respiratory Rate 17 Respiratory Effort / Characteristics Respiratory Depth Blood Pressure 113/72 113/72 Blood Pressure Mean 89 89 Pulse Oximetry 96 Oxygen Delivery Method Sepsis Recent Fever Within 48 Hours Sepsis New/Unexplained Change in Mental Status Sepsis Action Taken by Nursing 09/24/24 11:24 09/24/24 11:48 Temperature Temperature Source Pulse Rate 71 67 Pulse Rate from SpO2 Sensor 69 68 Respiratory Rate 21 15 Respiratory Effort / Characteristics Respiratory Depth Blood Pressure Blood Pressure Mean Pulse Oximetry 96 97 Oxygen Delivery Method Sepsis Recent Fever Within 48 Hours Sepsis New/Unexplained Change in Mental Status Sepsis Action Taken by Nursing Laboratory Data 09/25/24 04:11 09/25/24 04:11 Lab Results 09/24/24 Range/Units Unknown Adenovirus (PCR) Not Detected (NotDetected) B. pertussis DNA (PCR) Not Detected (NotDetected) B.parapertussis DNA PCR Not Detected (NotDetected) C. pneumoniae DNA (PCR) Not Detected (NotDetected) Coronavirus OC43 (PCR) Not Detected (NotDetected) Coronavirus HKU1 (PCR) Not Detected (NotDetected) Coronavirus 229E (PCR) Not Detected (NotDetected) SARS-CoV-2 (PCR) Not Detected (NotDetected) Coronavirus NL63 (PCR) Not Detected (NotDetected) Human Metapneumovir PCR Not Detected (NotDetected) Influenza Type A (PCR) Not Detected (NotDetected) Influenza Type B (PCR) Not Detected (NotDetected) M. pneumoniae (PCR) Not Detected (NotDetected) Parainfluenza 1 (PCR) Not Detected (NotDetected) Parainfluenza 2 (PCR) Not Detected (NotDetected) Parainfluenza 3 (PCR) Not Detected (NotDetected) Parainfluenza 4 (PCR) Not Detected (NotDetected) RSV (PCR) Not Detected (NotDetected) Entero/Rhino (PCR) Not Detected (NotDetected) Administered Medications Acetaminophen (Acetaminophen 500 Mg Tab) 1,000 mg PO Q8H [facility] Stop: 10/24/24 17:59 Last Admin: 09/25/24 17:09 Dose: Not Given Documented By: Admin: 09/25/24 09:16 Dose: 1,000 mg Documented By: Admin: 09/25/24 01:19 Dose: 1,000 mg Documented By: Admin: 09/24/24 17:57 Dose: 1,000 mg Documented By: AYDIN Apixaban (Apixaban 2.5 Mg Tab) 2.5 mg PO BID [facility] Stop: 10/24/24 20:59 Last Admin: 09/25/24 08:11 Dose: 2.5 mg Documented By: Admin: 09/24/24 20:52 Dose: 2.5 mg Documented By: SERJIO Dapagliflozin (Dapagliflozin (Farxiga) 10 Mg Tab Non Formulary) 10 mg PO DAILY [facility] Stop: 10/25/24 10:44 Last Admin: 09/25/24 12:25 Dose: 10 mg Documented By: AYDIN Sodium Chloride (Nss) 1,000 mls @ 80 mls/hr IV .[id number] [facility] Stop: 09/26/24 23:29 Last Admin: 09/25/24 09:40 Dose: 80 mls/hr Documented By: AYDIN Insulin Aspart (Insulin Aspart Per Unit Charge) 0 units SC ACHS [facility] Stop: 10/24/24 20:59 Last Admin: 09/25/24 17:35 Dose: Not Given Documented By: Admin: 09/25/24 13:23 Dose: 3 units Documented By: AYDIN Co-signed By: jerad Admin: 09/25/24 09:40 Dose: Not Given Documented By: Admin: 09/24/24 20:48 Dose: Not Given Documented By: SERJIO Lisinopril (Lisinopril 10 Mg Tab) 10 mg PO QAM [facility] Stop: 10/25/24 08:59 Last Admin: 09/25/24 08:11 Dose: 10 mg Documented By: AYDIN Menthol (Cough Drop (Sugar Free) Vania 24 Vania/1 Box) 1 vania BUCCAL Q2H PRN PRN Reason: Sore Throat Stop: 10/25/24 01:27 Last Admin: 09/25/24 02:33 Dose: 1 vania Documented By: SERJIO Oxycodone HCl (Oxycodone Hcl Ir 5 Mg Tab (Immediate Release)) 5 mg PO Q3HWA PRN PRN Reason: Breakthrough Pain Stop: 10/08/24 11:54 Last Admin: 09/25/24 17:26 Dose: 5 mg Documented By: Admin: 09/25/24 14:24 Dose: 5 mg Documented By: Admin: 09/25/24 09:17 Dose: 5 mg Documented By: Admin: 09/25/24 06:41 Dose: 5 mg Documented By: Admin: 09/24/24 20:52 Dose: 5 mg Documented By: SERJIO Pantoprazole Sodium (Pantoprazole 40 Mg Tab) 40 mg PO DAILY [facility] Stop: 10/25/24 08:59 Last Admin: 09/25/24 08:11 Dose: 40 mg Documented By: AYDIN Rosuvastatin Calcium (Rosuvastatin Calcium 5 Mg Tab) 5 mg PO QAM [facility] Stop: 10/25/24 08:59 Last Admin: 09/25/24 08:11 Dose: 5 mg Documented By: AYDIN Discontinued Medications Acetaminophen (Ofirmev) 1,000 mg in 100 mls @ 400 mls/hr IV NOW STA Stop: 09/24/24 11:09 Last Infusion: 09/24/24 12:18 Dose: Infused Documented By: Admin: 09/24/24 11:18 Dose: 400 mls/hr Documented By: DEVIN Sodium Chloride (Nss) 500 mls @ 80 mls/hr IV .Q6H15M [facility] Stop: 09/26/24 03:44 Last Admin: 09/25/24 10:01 Dose: Not Given Documented By: AYDIN Ketorolac Tromethamine (Ketorolac 30 Mg/Ml Vial) 30 mg IV NOW STA Stop: 09/24/24 10:56 Last Admin: 09/24/24 11:18 Dose: 30 mg Documented By: DEVIN Miscellaneous (--Dapagliflozin Propanediol [Farxiga] 10 Mg Tabletorder Awaiting Action) 1 each N/A QS [facility] Stop: 10/24/24 15:59 Last Admin: 09/25/24 12:09 Dose: Not Given Documented By: Admin: 09/24/24 23:37 Dose: Not Given Documented By: Admin: 09/24/24 17:44 Dose: Not Given Documented By: AYDIN Morphine Sulfate (Morphine Sulfate 4 Mg/Ml 1 Ml Carp\\Vial) 4 mg IV NOW STA Stop: 09/24/24 09:45 Last Admin: 09/24/24 10:07 Dose: 4 mg Documented By: DEVIN Ondansetron HCl (Ondansetron Inj 2 Mg/Ml 2 Ml Vial) 4 mg IV NOW STA Stop: 09/24/24 09:45 Last Admin: 09/24/24 10:07 Dose: 4 mg Documented By: DEVIN Imaging Data Radiologist's Impression: Humerus X-Ray 09/24/24 09:44 XR shoulder RT min 2V routine, XR humerus RT 2V CLINICAL HISTORY: fall COMPARISON: None FINDINGS: There is an acute minimally displaced mildly comminuted fracture at the proximal humerus involving the surgical neck and undermining the greater tuberosity. No other fracture or dislocation seen at the right shoulder or right humerus. IMPRESSION: Acute fracture proximal humerus. ACT 112: Negative or not required by law. Electronically signed by: Elver Wiley M.D. 09/24/2024 10:15 AM Knee X-Ray 09/24/24 09:44 XR knee RT 1 or 2V routine CLINICAL HISTORY: fall COMPARISON: None FINDINGS: There is severe medial compartment narrowing with osteophytosis. No fracture or dislocation seen. There is a moderate joint effusion with possible layering on the lateral view, suggesting possible lipohemarthrosis. IMPRESSION: Moderate joint effusion with possible layering with no fracture seen. This suggests possible occult nondisplaced fracture at the right knee. ACT 112: Negative or not required by law. Electronically signed by: lEver Wiley M.D. 09/24/2024 10:17 AM Shoulder X-Ray 09/24/24 09:44 XR shoulder RT min 2V routine, XR humerus RT 2V CLINICAL HISTORY: fall COMPARISON: None FINDINGS: There is an acute minimally displaced mildly comminuted fracture at the proximal humerus involving the surgical neck and undermining the greater tuberosity. No other fracture or dislocation seen at the right shoulder or right humerus. IMPRESSION: Acute fracture proximal humerus. ACT 112: Negative or not required by law. Electronically signed by: Elver Wiley M.D. 09/24/2024 10:[address] 09/24/24 11:07 CT SCAN OF THE RIGHT KNEE WITHOUT IV CONTRAST CLINICAL HISTORY: Right knee injury. Abnormal x-ray. COMPARISON STUDY: Right knee x-rays dated 09/24/2024. TECHNIQUE: CT scan of the right knee is performed from the distal femur to the proximal tibia and fibula. Images are reviewed in the axial, sagittal, and coronal planes. IV contrast was not administered for this examination. A dose lowering technique was utilized adhering to the principles of ALARA. CT DOSE: 533.6 mGy.cm FINDINGS: The skeletal structures are osteopenic. There is a moderate to large joint effusion with lipohemarthrosis indicating acute fracture. There is a subtle impacted fracture along the anterior cortex of the lateral tibial plateau. This is best seen on coronal image #43 and sagittal image #37. There is only minimal depression at this site. The medial tibial plateau is intact. The distal femur, proximal fibula, and patella are maintained. There is moderate degenerative narrowing in the medial compartment. Mild narrowing is seen in the lateral compartment. There is generalized atrophy of the regional musculature. IMPRESSION: 1. There is a large joint effusion with lipohemarthrosis indicating acute fracture. 2. There is a subtle impacted fracture along the anterior aspect of the lateral tibial plateau. 3. No additional acute fracture is seen. 4. Osteopenia and degenerative change as above. ACT 112: Negative or not required by law. Electronically signed by: Nahid Petit M.D. 09/24/2024 11:51 AM Discharge Plan Visit Data Chief Complaint: Fall Stated Complaint: FALL, SHOULDER PAIN ED Provider: Mark Briones ED Midlevel Provider: Izzy Johnson Discharge Problem: Fracture of proximal end of humerus, Fracture, tibial plateau Patient Disposition: Admitted As Inpatient Condition: Good Discharge Instructions Interventions: ED Discharge Assessment Last Done: 09/24/24 16:17 Addendum September 25, 2024 17:53 I was consulted by the Advanced Practice Provider and was substantively involved in the patient's visit.This includes aspects of the HPI, MDM, diagnostic interpretations, and disposition/plan. I discussed the case with the CASSIE and agree with the findings and plan as documented in CASSIE Alex's note. Discharge Problem: Fracture of proximal end of humerus Qualifiers: Encounter type: initial encounter Fracture type: closed Fracture morphology: o ther fracture Fracture alignment: nondisplaced Laterality: right Qualified Code(s): S42.294A - Other nondisplaced fracture of upper end of right humerus, initial encounter for closed fracture Fracture, tibial plateau Qualifiers: Encounter type: initial encounter Fracture type: closed Laterality: right Q ualified Code(s): S82.141A - Displaced bicondylar fracture of right tibia, initial encounter for closed fracture
[2024-09-24 14:31] LABS: Hematocrit (blood only) 42.9 % (37.0-47.0); Hemoglobin 14.1 g/dl (12.0-16.0); Immature Granulocytes # (auto) 0.02 K/uL (0.01-0.20); Immature Granulocytes % (auto) 0.2 %; Mean Corpuscular Hemoglobin 29.5 pg (25.0-34.0); Mean Corpuscular Volume 89.7 fL (80.0-100.0); Platelet Count 253 K/uL (130-400); RDW Standard Deviation 41.4 fL (36.4-46.3); Red Blood Count 4.78 M/uL (4.20-5.40); White Blood Count 9.62 K/ul (4.8-10.8)
[2024-09-24 14:47] LABS: Alanine Aminotransferase 23.0 U/L (7-52); Albumin Globulin Ratio 1.5 (0.9-2); Alkaline Phosphatase 96.0 U/L (34-104); Anion Gap 7.0 (3-11); Bilirubin,Total 1.2 mg/dl (0.2-1.0); Blood Urea Nitrogen 11.0 mg/dl (6-23); Calcium 9.0 mg/dl (8.6-10.3); Carbon Dioxide 28.0 mmol/L (21-32); Chloride 104.0 mmol/L (98-107); Creatinine Clr Calc Pharmacy 139.2 ml/min; Globulin 2.6 gm/dl (2.5-4.0); Glucose 186.0 mg/dl (70-99(Fasting)); Potassium 4.0 mmol/L (3.5-5.1); Sodium 139.0 mmol/L (136-145); Total Protein 6.5 gm/dl (6.0-8.3)
[2024-09-24] MEDS: ACETAMINOPHEN 500 MG TAB PO SCH (17:57)
[2024-09-24] MEDS ORDERED: GLUCOSE 10 TAB/TUBE PO PRN (18:09)
[2024-09-24] MEDS ORDERED: GLUCAGON FOR INJ 1 MG VIAL SQ PRN (18:09)
[2024-09-24] MEDS ORDERED: GLUCOSE 40% GEL 15 GM TUBE PO PRN (18:09)
[2024-09-24] MEDS ORDERED: CARBOHYDRATES FOR HYPOGLYCEMIA PO PRN (18:09)
[2024-09-24] MEDS ORDERED: DEXTROSE 50% 50 ML SYRINGE IV PRN (18:09)
[2024-09-24] MEDS: INSULIN ASPART PER UNIT CHARGE SC SCH (20:48)
[2024-09-24] MEDS: APIXABAN 2.5 MG TAB PO SCH (20:52)
[2024-09-25] MEDS: COUGH DROP (SUGAR FREE) LOZ 24 LOZ/1 BOX BUCCAL PRN (02:33)
[2024-09-25 05:02] LABS: Hematocrit (blood only) 39.0 % (37.0-47.0); Hemoglobin 12.8 g/dl (12.0-16.0); Mean Corpuscular Hemoglobin 30.2 pg (25.0-34.0); Mean Corpuscular Volume 92.0 fL (80.0-100.0); Platelet Count 235 K/uL (130-400); RDW Standard Deviation 42.6 fL (36.4-46.3); Red Blood Count 4.24 M/uL (4.20-5.40); White Blood Count 6.00 K/ul (4.8-10.8)
[2024-09-25 05:56] LABS: Anion Gap 7.0 (3-11); Calcium 8.8 mg/dl (8.6-10.3); Carbon Dioxide 28.0 mmol/L (21-32); Chloride 104.0 mmol/L (98-107); Potassium 4.0 mmol/L (3.5-5.1); Sodium 139.0 mmol/L (136-145)
[2024-09-25 06:02] LABS: Blood Urea Nitrogen 15.0 mg/dl (6-23); Creatinine Clr Calc Pharmacy 113.7 ml/min; Glucose 164.0 mg/dl (70-99(Fasting))
[2024-09-25] MEDS: ROSUVASTATIN CALCIUM 5 MG TAB PO SCH (08:11)
[2024-09-25] MEDS: SODIUM CHLORIDE 0.9% 1,000 ML IV SCH (09:40)
[2024-09-25] MEDS: SODIUM CHLORIDE 0.9% 500 ML IV SCH (10:01)
[2024-09-25] MEDS: DAPAGLIFLOZIN 10 MG PO SCH (12:25)
--- NOTE | 2024-09-25 15:43 | Hospitalist Progress Note ---
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 #Mechanical Fall #Right Tibial Plateau Fracture #Right Humeral Fracture #Ambulatory Dysfunction -patient with right tibial fracture, right humeral fracture 2/2 mechanical fall -hypotensive episode in ED with good recovery post morphine IV 4mg Appreciate Ortho input and recommendation for conservative management Pain control with IV tylenol and breakthrough oxycodone, would avoid IV medications if possible -PT/OT, right sided nonweightbearing per ortho, sling for right humerus placed in ED -likely needs SNF Start eliquis 2.5 PO bid for DVT prophylaxis per ortho recs Clinically better today with minimal symptoms at rest Denies any increasing pain, shortness of breath at rest or any nausea no vomiting #MANDA -home CPAP ordered #DM Type 2 -only on farxiga at home -SSI ordered -continue protonix #HTN -continue lisinopril Awaiting PT and OT evaluation and may need placement Admission and Anticipated Discharge Date Admission Date: September 24, 2024 Subjective 09/25/2024 The patient was seen and examined in medical telemetry She has been complaining pain involving multiple areas including right upper extremity and also right knee Denies any more shortness of breath or wheezing and has been saturating normally on 2 L No other significant symptoms Review of Systems Review of Systems: All systems reviewed and are unremarkable except as noted below Physical Exam Physical Exam: Lying in bed with some distress due to pain secondary to fall Constitutional: well developed, well nourished, + ill appearing and + morbidly obese Eyes: PERRL, conjunctivae normal, anicteric sclerae ENMT: external ear and nose normal, oropharynx normal Neck: trachea midline, no thyromegaly Respiratory: no respiratory distress Auscultation: + diminished lung sounds; no crackles Cardiovascular: Rate/Rhythm: regular rate and regular rhythm; not tachycardic Heart Sounds: normal S1 and normal S2; no murmur Extremities: + edema (Trace to 1+ edema bilaterally) Gastrointestinal (Abdomen): Inspection/Auscultation: normal bowel sounds; abdomen not distended Percussion/Palpation: abdomen soft; abdomen nontender Musculoskeletal: Pain with movement of the right upper extremity and pain with movement of the right knee joint Neurologic: normal touch/pain/proprioception and moves all extremities; no focal motor deficits Lymphatic: no cervical or axillary lymphadenopathy Results & Data Results & Data Vital Signs (Past 12 Hours) Vital Signs Temp Pulse Pulse Resp BP Pulse Ox O2 Del Method 09/25/24 13:00 65 09/25/24 11:29 Nasal Cannula 09/25/24 11:19 36.6 C 67 20 121/74 95 Nasal Cannula 09/25/24 07:45 36.6 C 75 18 145/68 H 94 Nasal Cannula 09/25/24 05:54 73 O2 Flow Rate 09/25/24 13:00 09/25/24 11:29 2 09/25/24 11:19 2 09/25/24 07:45 2 09/25/24 05:54 Laboratory Results Short CBC 09/25/24 Range/Units 04:11 WBC 6.00 (4.8-10.8) K/ul Hgb 12.8 (12.0-16.0) g/dl Hct 39.0 (37.0-47.0) % Plt Count 235 (130-400) K/uL BMP 09/25/24 04:11 Sodium 139 Potassium 4.0 Chloride 104 Carbon Dioxide 28 BUN 15 Creatinine 0.56 L Glucose 164 H Calcium 8.8 Medications Administered Current Inpatient Medications Acetaminophen (Acetaminophen 500 Mg Tab) 1,000 mg PO Q8H [facility] Stop: 10/24/24 17:59 Last Admin: 09/25/24 09:16 Dose: 1,000 mg Apixaban (Apixaban 2.5 Mg Tab) 2.5 mg PO BID [facility] Stop: 10/24/24 20:59 Last Admin: 09/25/24 08:11 Dose: 2.5 mg Dapagliflozin (Dapagliflozin (Farxiga) 10 Mg Tab Non Formulary) 10 mg PO DAILY [facility] Stop: 10/25/24 10:44 Last Admin: 09/25/24 12:25 Dose: 10 mg Dextrose (Dextrose 50% 50 Ml Syringe) 25 - 50 ml IV UD PRN; Protocol PRN Reason: Hypoglycemia Protocol Stop: 10/24/24 18:08 Glucagon (Glucagon For Inj 1 Mg Vial) 1 mg SQ UD PRN; Protocol PRN Reason: Hypoglycemia Protocol Stop: 10/24/24 18:08 Glucose (Glucose 40% Gel 15 Gm Tube) 15 - 30 gm PO UD PRN; Protocol PRN Reason: Hypoglycemia Protocol Stop: 10/24/24 18:08 Glucose (Glucose 10 Tab/Tube) 4 - 8 tab PO UD PRN; Protocol PRN Reason: Hypoglycemia Protocol Stop: 10/24/24 18:08 Acetaminophen (Ofirmev) 1,000 mg in 100 mls @ 400 mls/hr IV Q8H PRN PRN Reason: Severe Pain (Scale 7, 8, 9,10) Stop: 09/27/24 11:54 Sodium Chloride (Nss) 1,000 mls @ 80 mls/hr IV .[id number] [facility] Stop: 09/26/24 23:29 Last Admin: 09/25/24 09:40 Dose: 80 mls/hr Insulin Aspart (Insulin Aspart Per Unit Charge) 0 units SC ACHS [facility] Stop: 10/24/24 20:59 Last Admin: 09/25/24 13:23 Dose: 3 units Lisinopril (Lisinopril 10 Mg Tab) 10 mg PO QAM [facility] Stop: 10/25/24 08:59 Last Admin: 09/25/24 08:11 Dose: 10 mg Menthol (Cough Drop (Sugar Free) Lacey 24 Lacey/1 Box) 1 lacey BUCCAL Q2H PRN PRN Reason: Sore Throat Stop: 10/25/24 01:27 Last Admin: 09/25/24 02:33 Dose: 1 lacey Miscellaneous (Carbohydrates For Hypoglycemia ) 15 - 30 gm PO UD PRN PRN Reason: Hypoglycemia Protocol Stop: 10/24/24 18:08 Ondansetron HCl (Ondansetron Inj 2 Mg/Ml 2 Ml Vial) 4 mg IV Q6H PRN PRN Reason: Nausea Stop: 10/24/24 14:27 Oxycodone HCl (Oxycodone Hcl Ir 5 Mg Tab (Immediate Release)) 5 mg PO Q3HWA PRN PRN Reason: Breakthrough Pain Stop: 10/08/24 11:54 Last Admin: 09/25/24 14:24 Dose: 5 mg Pantoprazole Sodium (Pantoprazole 40 Mg Tab) 40 mg PO DAILY [facility] Stop: 10/25/24 08:59 Last Admin: 09/25/24 08:11 Dose: 40 mg Polyethylene Glycol (Polyethylene (Miralax) 17 Gm Pack) 17 gm PO DAILY PRN PRN Reason: Constipation Stop: 10/24/24 14:27 Rosuvastatin Calcium (Rosuvastatin Calcium 5 Mg Tab) 5 mg PO QAM [facility] Stop: 10/25/24 08:59 Last Admin: 09/25/24 08:11 Dose: 5 mg (1) Fracture, tibial plateau Encounter type: initial encounter Fracture type: closed Laterality: right Qualified Code(s): S82.141A - Displaced bicondylar fracture of right tibia, initial encounter for closed fracture (2) Fracture of proximal end of humerus Encounter type: initial encounter Fracture alignment: nondisplaced Fracture morphology: other fracture Fracture type: closed Laterality: right Qualified Code(s): S42.294A - Other nondisplaced fracture of upper end of right humerus, initial encounter for closed fracture
[2024-09-26 05:44] LABS: Hematocrit (blood only) 40.1 % (37.0-47.0); Hemoglobin 12.9 g/dl (12.0-16.0); Immature Granulocytes # (auto) 0.01 K/uL (0.01-0.20); Immature Granulocytes % (auto) 0.2 %; Mean Corpuscular Hemoglobin 29.6 pg (25.0-34.0); Mean Corpuscular Volume 92.0 fL (80.0-100.0); Platelet Count 216 K/uL (130-400); RDW Standard Deviation 42.7 fL (36.4-46.3); Red Blood Count 4.36 M/uL (4.20-5.40); White Blood Count 6.59 K/ul (4.8-10.8)
[2024-09-26 06:01] LABS: Anion Gap 7.0 (3-11); Blood Urea Nitrogen 13.0 mg/dl (6-23); Calcium 8.7 mg/dl (8.6-10.3); Carbon Dioxide 27.0 mmol/L (21-32); Chloride 104.0 mmol/L (98-107); Creatinine Clr Calc Pharmacy 125.7 ml/min; Glucose 125.0 mg/dl (70-99(Fasting)); Potassium 3.9 mmol/L (3.5-5.1); Sodium 138.0 mmol/L (136-145)
--- NOTE | 2024-09-26 14:02 | Hospitalist Progress Note ---
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 #Mechanical Fall #Right Tibial Plateau Fracture #Right Humeral Fracture #Ambulatory Dysfunction -patient with right tibial fracture, right humeral fracture 2/2 mechanical fall -hypotensive episode in ED with good recovery post morphine IV 4mg Appreciate Ortho input and recommendation for conservative management Pain control with IV tylenol and breakthrough oxycodone, would avoid IV medications if possible -PT/OT, right sided nonweightbearing per ortho, sling for right humerus placed in ED -likely needs SNF Start eliquis 2.5 PO bid for DVT prophylaxis per ortho recs Clinically better today with minimal symptoms at rest Denies any increasing pain, shortness of breath at rest or any nausea no vomiting Pain is not well-controlled especially swelling of the right knee is noted with extreme pain with movement of the right knee joint and right lower extremity Will ask orthopedics to reevaluate #MANDA -home CPAP ordered #DM Type 2 -only on farxiga at home -SSI ordered -continue protonix #HTN -continue lisinopril Awaiting PT and OT evaluation and may need placement Admission and Anticipated Discharge Date Admission Date: September 24, 2024 Subjective 09/25/2024 The patient was seen and examined in medical telemetry She has been complaining pain involving multiple areas including right upper extremity and also right knee Denies any more shortness of breath or wheezing and has been saturating normally on 2 L No other significant symptoms please 09/26/2024 The patient was seen and examined in the medical telemetry unit She has been complaining of pain in the right upper extremity and also right knee joint Has been getting narcotic pain medications are controlling pain to some extent Denies any other significant symptoms Review of Systems Review of Systems: All systems reviewed and are unremarkable except as noted below Physical Exam Physical Exam: Lying in bed with some distress due to pain secondary to fall Constitutional: well developed, well nourished, + ill appearing and + morbidly obese Eyes: PERRL, conjunctivae normal, anicteric sclerae ENMT: external ear and nose normal, oropharynx normal Neck: trachea midline, no thyromegaly Respiratory: no respiratory distress Auscultation: + diminished lung sounds; no crackles Cardiovascular: Rate/Rhythm: regular rate and regular rhythm; not tachycardic Heart Sounds: normal S1 and normal S2; no murmur Extremities: + edema (Trace to 1+ edema bilaterally) Gastrointestinal (Abdomen): Inspection/Auscultation: normal bowel sounds; abdomen not distended Percussion/Palpation: abdomen soft; abdomen nontender Musculoskeletal: Right knee is swollen and is very tender and movement is extremely painful Neurologic: normal touch/pain/proprioception and moves all extremities; no focal motor deficits Lymphatic: no cervical or axillary lymphadenopathy Results & Data Results & Data Vital Signs (Past 12 Hours) Vital Signs Temp Pulse Pulse Resp BP Pulse Ox O2 Del Method 09/26/24 08:21 36.5 C 83 18 132/68 96 Nasal Cannula 09/26/24 08:03 65 09/26/24 02:38 36.9 C 85 20 143/76 H 92 Nasal Cannula O2 Flow Rate 09/26/24 08:21 2 09/26/24 08:03 09/26/24 02:38 2 Laboratory Results Short CBC 09/26/24 Range/Units 05:17 WBC 6.59 (4.8-10.8) K/ul Hgb 12.9 (12.0-16.0) g/dl Hct 40.1 (37.0-47.0) % Plt Count 216 (130-400) K/uL [facility] 09/26/24 05:17 Sodium 138 Potassium 3.9 Chloride 104 Carbon Dioxide 27 BUN 13 Creatinine 0.50 L Glucose 125 H Calcium 8.7 Medications Administered Current Inpatient Medications Acetaminophen (Acetaminophen 500 Mg Tab) 1,000 mg PO Q8H [facility] Stop: 10/24/24 17:59 Last Admin: 09/26/24 10:45 Dose: 1,000 mg Apixaban (Apixaban 2.5 Mg Tab) 2.5 mg PO BID [facility] Stop: 10/24/24 20:59 Last Admin: 09/26/24 09:16 Dose: 2.5 mg Dapagliflozin (Dapagliflozin (Farxiga) 10 Mg Tab Non Formulary) 10 mg PO DAILY [facility] Stop: 10/25/24 10:44 Last Admin: 09/26/24 09:17 Dose: 10 mg Dextrose (Dextrose 50% 50 Ml Syringe) 25 - 50 ml IV UD PRN; Protocol PRN Reason: Hypoglycemia Protocol Stop: 10/24/24 18:08 Glucagon (Glucagon For Inj 1 Mg Vial) 1 mg SQ UD PRN; Protocol PRN Reason: Hypoglycemia Protocol Stop: 10/24/24 18:08 Glucose (Glucose 40% Gel 15 Gm Tube) 15 - 30 gm PO UD PRN; Protocol PRN Reason: Hypoglycemia Protocol Stop: 10/24/24 18:08 Glucose (Glucose 10 Tab/Tube) 4 - 8 tab PO UD PRN; Protocol PRN Reason: Hypoglycemia Protocol Stop: 10/24/24 18:08 Acetaminophen (Ofirmev) 1,000 mg in 100 mls @ 400 mls/hr IV Q8H PRN PRN Reason: Severe Pain (Scale 7, 8, 9,10) Stop: 09/27/24 11:54 Sodium Chloride (Nss) 1,000 mls @ 80 mls/hr IV .[id number] [facility] Stop: 09/26/24 23:29 Last Admin: 09/26/24 10:48 Dose: 80 mls/hr Insulin Aspart (Insulin Aspart Per Unit Charge) 0 units SC ACHS [facility] Stop: 10/24/24 20:59 Last Admin: 09/26/24 12:52 Dose: Not Given Lisinopril (Lisinopril 10 Mg Tab) 10 mg PO QAM [facility] Stop: 10/25/24 08:59 Last Admin: 09/26/24 09:16 Dose: 10 mg Menthol (Cough Drop (Sugar Free) Lacey 24 Lacey/1 Box) 1 lacey BUCCAL Q2H PRN PRN Reason: Sore Throat Stop: 10/25/24 01:27 Last Admin: 09/25/24 02:33 Dose: 1 lacey Miscellaneous (Carbohydrates For Hypoglycemia ) 15 - 30 gm PO UD PRN PRN Reason: Hypoglycemia Protocol Stop: 10/24/24 18:08 Ondansetron HCl (Ondansetron Inj 2 Mg/Ml 2 Ml Vial) 4 mg IV Q6H PRN PRN Reason: Nausea Stop: 10/24/24 14:27 Oxycodone HCl (Oxycodone Hcl Ir 5 Mg Tab (Immediate Release)) 5 mg PO Q3HWA PRN PRN Reason: Breakthrough Pain Stop: 10/08/24 11:54 Last Admin: 09/26/24 09:14 Dose: 5 mg Pantoprazole Sodium (Pantoprazole 40 Mg Tab) 40 mg PO DAILY [facility] Stop: 10/25/24 08:59 Last Admin: 09/26/24 09:16 Dose: 40 mg Polyethylene Glycol (Polyethylene (Miralax) 17 Gm Pack) 17 gm PO DAILY PRN PRN Reason: Constipation Stop: 10/24/24 14:27 Rosuvastatin Calcium (Rosuvastatin Calcium 5 Mg Tab) 5 mg PO QAM [facility] Stop: 10/25/24 08:59 Last Admin: 09/26/24 09:16 Dose: 5 mg (1) Fracture, tibial plateau Encounter type: initial encounter Fracture type: closed Laterality: right Qualified Code(s): S82.141A - Displaced bicondylar fracture of right tibia, initial encounter for closed fracture (2) Fracture of proximal end of humerus Encounter type: initial encounter Fracture alignment: nondisplaced Fracture morphology: other fracture Fracture type: closed Laterality: right Qualified Code(s): S42.294A - Other nondisplaced fracture of upper end of right humerus, initial encounter for closed fracture
--- NOTE | 2024-09-27 13:08 | Hospitalist Progress Note ---
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 #Mechanical Fall #Right Tibial Plateau Fracture #Right Humeral Fracture #Ambulatory Dysfunction -patient with right tibial fracture, right humeral fracture 2/2 mechanical fall -hypotensive episode in ED with good recovery post morphine IV 4mg Appreciate Ortho input and recommendation for conservative management Pain control with IV tylenol and breakthrough oxycodone, would avoid IV medications if possible -PT/OT, right sided nonweightbearing per ortho, sling for right humerus placed in ED -likely needs SNF Start eliquis 2.5 PO bid for DVT prophylaxis per ortho recs Clinically better today with minimal symptoms at rest Denies any increasing pain, shortness of breath at rest or any nausea no vomiting Pain is not well-controlled especially swelling of the right knee is noted with extreme pain with movement of the right knee joint and right lower extremity Will ask orthopedics to reevaluate Right knee is much better today and the pain is reasonably controlled #MANDA -home CPAP ordered Minimal wheezing and cough she will be given albuterol inhaler also cough suppressants #DM Type 2 -only on farxiga at home -SSI ordered -continue protonix #HTN -continue lisinopril Awaiting PT and OT evaluation and may need placement Admission and Anticipated Discharge Date Admission Date: September 24, 2024 Subjective 09/25/2024 The patient was seen and examined in medical telemetry She has been complaining pain involving multiple areas including right upper extremity and also right knee Denies any more shortness of breath or wheezing and has been saturating normally on 2 L No other significant symptoms please 09/26/2024 The patient was seen and examined in the medical telemetry unit She has been complaining of pain in the right upper extremity and also right knee joint Has been getting narcotic pain medications are controlling pain to some extent Denies any other significant symptoms 09/27/2024 The patient was seen and examined in medical telemetry unit She has some wheezing and cough but denies any other significant symptoms Her pain seems to be controlled with current medication Her right knee is better today Review of Systems Review of Systems: All systems reviewed and are unremarkable except as noted below Physical Exam Physical Exam: Lying in bed with some distress due to pain secondary to fall Constitutional: well developed, well nourished, + ill appearing and + morbidly obese Eyes: PERRL, conjunctivae normal, anicteric sclerae ENMT: external ear and nose normal, oropharynx normal Neck: trachea midline, no thyromegaly Respiratory: no respiratory distress Auscultation: + diminished lung sounds; no crackles Cardiovascular: Rate/Rhythm: regular rate and regular rhythm; not tachycardic Heart Sounds: normal S1 and normal S2; no murmur Extremities: + edema (Trace to 1+ edema bilaterally) Gastrointestinal (Abdomen): Inspection/Auscultation: normal bowel sounds; abdomen not distended Percussion/Palpation: abdomen soft; abdomen nontender Skin: No redness involving the right knee joint is minimally swollen and moderately painful with movement Neurologic: normal touch/pain/proprioception and moves all extremities; no focal motor deficits Lymphatic: no cervical or axillary lymphadenopathy Results & Data Results & Data Vital Signs (Past 12 Hours) Vital Signs Temp Pulse Pulse Resp BP Pulse Ox O2 Del Method 09/27/24 11:45 36.4 C L 93 H 18 164/63 H 97 Nasal Cannula 09/27/24 08:08 36.4 C L 90 19 130/76 95 Nasal Cannula 09/27/24 07:12 78 09/27/24 04:29 37.1 C 77 18 125/62 96 Nasal Cannula O2 Flow Rate 09/27/24 11:45 4 09/27/24 08:08 2 09/27/24 07:12 09/27/24 04:29 3 Medications Administered Current Inpatient Medications Acetaminophen (Acetaminophen 500 Mg Tab) 1,000 mg PO Q8H [facility] Stop: 10/24/24 17:59 Last Admin: 09/27/24 10:10 Dose: 1,000 mg Albuterol (Albuterol Hfa 8 Gm Inhaler) 2 puffs INH QIDR PRN PRN Reason: Shortness Of Breath Or Wheezin Stop: 10/27/24 09:47 Apixaban (Apixaban 2.5 Mg Tab) 2.5 mg PO BID [facility] Stop: 10/24/24 20:59 Last Admin: 09/27/24 10:06 Dose: 2.5 mg Dapagliflozin (Dapagliflozin (Farxiga) 10 Mg Tab Non Formulary) 10 mg PO DAILY [facility] Stop: 10/25/24 10:44 Last Admin: 09/27/24 10:05 Dose: 10 mg Dextrose (Dextrose 50% 50 Ml Syringe) 25 - 50 ml IV UD PRN; Protocol PRN Reason: Hypoglycemia Protocol Stop: 10/24/24 18:08 Glucagon (Glucagon For Inj 1 Mg Vial) 1 mg SQ UD PRN; Protocol PRN Reason: Hypoglycemia Protocol Stop: 10/24/24 18:08 Glucose (Glucose 40% Gel 15 Gm Tube) 15 - 30 gm PO UD PRN; Protocol PRN Reason: Hypoglycemia Protocol Stop: 10/24/24 18:08 Glucose (Glucose 10 Tab/Tube) 4 - 8 tab PO UD PRN; Protocol PRN Reason: Hypoglycemia Protocol Stop: 10/24/24 18:08 Guaifenesin/Dextromethorphan (Guaifenesin/Dextrom Syrup 200mg/20mg 10ml Udc) 10 ml PO Q6H PRN PRN Reason: Cough Stop: 10/27/24 09:47 Last Admin: 09/27/24 11:18 Dose: 10 ml Insulin Aspart (Insulin Aspart Per Unit Charge) 0 units SC ACHS [facility] Stop: 10/24/24 20:59 Last Admin: 09/27/24 10:10 Dose: Not Given Lisinopril (Lisinopril 10 Mg Tab) 10 mg PO QAM [facility] Stop: 10/25/24 08:59 Last Admin: 09/27/24 10:06 Dose: 10 mg Menthol (Cough Drop (Sugar Free) Lacey 24 Lacey/1 Box) 1 lacey BUCCAL Q2H PRN PRN Reason: Sore Throat Stop: 10/25/24 01:27 Last Admin: 09/25/24 02:33 Dose: 1 lacey Miscellaneous (Carbohydrates For Hypoglycemia ) 15 - 30 gm PO UD PRN PRN Reason: Hypoglycemia Protocol Stop: 10/24/24 18:08 Ondansetron HCl (Ondansetron Inj 2 Mg/Ml 2 Ml Vial) 4 mg IV Q6H PRN PRN Reason: Nausea Stop: 10/24/24 14:27 Oxycodone HCl (Oxycodone Hcl Ir 5 Mg Tab (Immediate Release)) 5 mg PO Q3HWA PRN PRN Reason: Breakthrough Pain Stop: 10/08/24 11:54 Last Admin: 09/27/24 11:21 Dose: 5 mg Pantoprazole Sodium (Pantoprazole 40 Mg Tab) 40 mg PO DAILY [facility] Stop: 10/25/24 08:59 Last Admin: 09/27/24 10:05 Dose: 40 mg Polyethylene Glycol (Polyethylene (Miralax) 17 Gm Pack) 17 gm PO DAILY PRN PRN Reason: Constipation Stop: 10/24/24 14:27 Rosuvastatin Calcium (Rosuvastatin Calcium 5 Mg Tab) 5 mg PO QAM [facility] Stop: 10/25/24 08:59 Last Admin: 09/27/24 10:06 Dose: 5 mg (1) Fracture, tibial plateau Encounter type: initial encounter Fracture type: closed Laterality: right Qualified Code(s): S82.141A - Displaced bicondylar fracture of right tibia, initial encounter for closed fracture (2) Fracture of proximal end of humerus Encounter type: initial encounter Fracture alignment: nondisplaced Fracture morphology: other fracture Fracture type: closed Laterality: right Qualified Code(s): S42.294A - Other nondisplaced fracture of upper end of right humerus, initial encounter for closed fracture
[2024-09-27] MEDS: ALBUT/IPRATROP 3MG/0.5MG NEB 3 ML VIAL NEB STA (23:38)
--- NOTE | 2024-09-28 01:06 | XRay Report ---
EXAM: XR chest 1V portable CLINICAL HISTORY: COURSE BS [facility] TECHNIQUE: X-ray image of the chest is obtained in AP projection. COMPARISON: No prior studies are available for comparison. FINDINGS: Pulmonary Parenchyma: No evidence of consolidation. The right hemidiaphragm is raised. No evidence of pleural effusion or pleural thickening. Heart and Mediastinum: Heart size and shape are normal. No mediastinal widening or masses. No hilar or mediastinal lymphadenopathy. Bony Thorax: Bony thorax appears intact. There appears to be a cortical break in the inferior aspect of the right greater tuberosity of the humerus. Modified X-ray views are recommended. Soft Tissues: Soft tissues overlying the chest wall are unremarkable. IMPRESSION: 1. No acute cardiopulmonary abnormalities are identified. 2. Raised right hemidiaphragm. 3. There appears to be a cortical break in the inferior aspect of the right greater tuberosity of the humerus. Clinical correlation and dedicated X-ray views are recommended. Electronically signed by Oswald Carrillo 09-28-2024 01:06 AM
[2024-09-28 07:10] LABS: Hematocrit (blood only) 42.4 % (37.0-47.0); Hemoglobin 13.6 g/dl (12.0-16.0); Immature Granulocytes # (auto) 0.02 K/uL (0.01-0.20); Immature Granulocytes % (auto) 0.3 %; Mean Corpuscular Hemoglobin 29.3 pg (25.0-34.0); Mean Corpuscular Volume 91.4 fL (80.0-100.0); Platelet Count 246 K/uL (130-400); RDW Standard Deviation 41.7 fL (36.4-46.3); Red Blood Count 4.64 M/uL (4.20-5.40); White Blood Count 6.05 K/ul (4.8-10.8)
[2024-09-28 07:42] LABS: Anion Gap 11.0 (3-11); Blood Urea Nitrogen 14.0 mg/dl (6-23); Calcium 9.3 mg/dl (8.6-10.3); Carbon Dioxide 24.0 mmol/L (21-32); Chloride 103.0 mmol/L (98-107); Creatinine Clr Calc Pharmacy 143.6 ml/min; Glucose 119.0 mg/dl (70-99(Fasting)); Potassium 3.9 mmol/L (3.5-5.1); Sodium 138.0 mmol/L (136-145)
[2024-09-28] MEDS: ALBUTEROL HFA 8 GM INHALER INH PRN (10:26)
[2024-09-28] MEDS: MAGNESIUM SULFATE / D5W 1 GM/100 ML BAG IV SCH (12:25)
--- NOTE | 2024-09-28 13:27 | XRay Report ---
XR chest 1V portable CLINICAL HISTORY: r/o CHF COMPARISON STUDY: Chest radiograph September 27, 2024. FINDINGS: Elevation of the right hemidiaphragm is unchanged. There is no pneumothorax or pleural effu julianne. Minimal left basilar opacity favors atelectasis. Cardiomediastinal silhouette is stable. There is no evidence for pulmonary edema. IMPRESSION: No acute cardiopulmonary findings. No significant change in appearance of the chest. ACT 112: Negative or not required by law. Electronically signed by: Abdirahman Vergara M.D. 09/28/2024 1:26 PM
--- NOTE | 2024-09-28 14:04 | Hospitalist Progress Note ---
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 #Mechanical Fall with likely age-related osteoporotic fractures as below #Right Tibial Plateau Fracture #Right Humeral Fracture #Ambulatory Dysfunction -patient with right tibial fracture, right humeral fracture 2/2 mechanical fall -hypotensive episode in ED with good recovery post morphine IV 4mg Appreciate Ortho input and recommendation for conservative management Pain control with IV tylenol and breakthrough oxycodone, would avoid IV medications if possible -PT/OT, right sided nonweightbearing per ortho, sling for right humerus placed in ED -likely needs SNF Start eliquis 2.5 PO bid for DVT prophylaxis per ortho recs Clinically better today with minimal symptoms at rest Denies any increasing pain, shortness of breath at rest or any nausea no vomiting Pain is not well-controlled especially swelling of the right knee is noted with extreme pain with movement of the right knee joint and right lower extremity Will ask orthopedics to reevaluate Right knee is much better today and the pain is reasonably controlled Pain is reasonably controlled and has been getting physical therapy and will require rehab placement Acute bronchitis Complaining cough with wheezing mostly anterior chest with minimal phlegm Chest x-ray is not showing any CHF and no pneumonia Started with Ceftin 500 mg twice daily #MANDA -home CPAP ordered Minimal wheezing and cough she will be given albuterol inhaler also cough suppressants #DM Type 2 -only on farxiga at home -SSI ordered -continue protonix #HTN -continue lisinopril Awaiting PT and OT evaluation and may need placement Admission and Anticipated Discharge Date Admission Date: September 24, 2024 Subjective 09/25/2024 The patient was seen and examined in medical telemetry She has been complaining pain involving multiple areas including right upper extremity and also right knee Denies any more shortness of breath or wheezing and has been saturating normally on 2 L No other significant symptoms please 09/26/2024 The patient was seen and examined in the medical telemetry unit She has been complaining of pain in the right upper extremity and also right kn ee joint Has been getting narcotic pain medications are controlling pain to some extent Denies any other significant symptoms 09/27/2024 The patient was seen and examined in medical telemetry unit She has some wheezing and cough but denies any other significant symptoms Her pain seems to be controlled with current medication Her right knee is better today 09/28/2024 The patient was seen and examined in medical telemetry unit Her pain seems to be controlled but complains to have some wheezing and cough with whitish-yellow phlegm Chest x-ray did not show any evidence of CHF and/or pneumonia Denies any other significant symptoms Review of Systems Review of Systems: All systems reviewed and are unremarkable except as noted below Physical Exam Physical Exam: Lying in bed with some distress due to pain secondary to fall Constitutional: well developed, well nourished, + ill appearing and + morbidly obese Eyes: PERRL, conjunctivae normal, anicteric sclerae ENMT: external ear and nose normal, oropharynx normal Neck: trachea midline, no thyromegaly Respiratory: no respiratory distress Auscultation: + diminished lung sounds and + wheezes; no crackles Cardiovascular: Rate/Rhythm: regular rate and regular rhythm; not tachycardic Heart Sounds: normal S1 and normal S2; no murmur Extremities: + edema (Trace to 1+ edema bilaterally) Gastrointestinal (Abdomen): Inspection/Auscultation: normal bowel sounds; abdomen not distended Percussion/Palpation: abdomen soft; abdomen nontender Neurologic: normal touch/pain/proprioception and moves all extremities; no focal motor deficits Lymphatic: no cervical or axillary lymphadenopathy Results & Data Results & Data Vital Signs (Past 12 Hours) Vital Signs Temp Pulse Pulse Resp BP Pulse Ox O2 Del Method 09/28/24 12:47 88 18 95 Room Air 09/28/24 11:26 36.6 C 85 20 143/72 H 90 Room Air 09/28/24 10:29 107 H 19 95 Room Air 09/28/24 09:35 Room Air 09/28/24 07:34 36.6 C 80 18 148/78 H 94 Room Air 09/28/24 07:29 87 09/28/24 04:07 36.8 C 83 16 125/73 93 Room Air Laboratory Results Short CBC 09/28/24 Range/Units 06:25 WBC 6.05 (4.8-10.8) K/ul Hgb 13.6 (12.0-16.0) g/dl Hct 42.4 (37.0-47.0) % Plt Count 246 (130-400) K/uL BMP 09/28/24 06:25 Sodium 138 Potassium 3.9 Chloride 103 Carbon Dioxide 24 BUN 14 Creatinine 0.43 L Glucose 119 H Calcium 9.3 Medications Administered Current Inpatient Medications Acetaminophen (Acetaminophen 500 Mg Tab) 1,000 mg PO Q8H MATILDA Stop: 10/24/24 17:59 Last Admin: 09/28/24 09:10 Dose: 1,000 mg Albuterol (Albuterol Hfa 8 Gm Inhaler) 2 puffs INH QIDR PRN PRN Reason: Shortness Of Breath Or Wheezin Stop: 10/27/24 09:47 Last Admin: 09/28/24 12:47 Dose: 2 puffs Albuterol (Albut/Ipratrop 3mg/0.5mg Neb 3 Ml Vial) 3 ml NEB QIDR PRN; Protocol PRN Reason: Wheezing Stop: 10/28/24 12:42 Apixaban (Apixaban 2.5 Mg Tab) 2.5 mg PO BID MATILDA Stop: 10/24/24 20:59 Last Admin: 09/28/24 08:59 Dose: 2.5 mg Cefuroxime Axetil (Cefuroxime Axetil 500 Mg Tab) 500 mg PO BID MATILDA Stop: 10/03/24 11:59 Last Admin: 09/28/24 12:24 Dose: 500 mg Dapagliflozin (Dapagliflozin (Farxiga) 10 Mg Tab Non Formulary) 10 mg PO DAILY MATILDA Stop: 10/25/24 10:44 Last Admin: 09/28/24 08:59 Dose: 10 mg Dextrose (Dextrose 50% 50 Ml Syringe) 25 - 50 ml IV UD PRN; Protocol PRN Reason: Hypoglycemia Protocol Stop: 10/24/24 18:08 Glucagon (Glucagon For Inj 1 Mg Vial) 1 mg SQ UD PRN; Protocol PRN Reason: Hypoglycemia Protocol Stop: 10/24/24 18:08 Glucose (Glucose 40% Gel 15 Gm Tube) 15 - 30 gm PO UD PRN; Protocol PRN Reason: Hypoglycemia Protocol Stop: 10/24/24 18:08 Glucose (Glucose 10 Tab/Tube) 4 - 8 tab PO UD PRN; Protocol PRN Reason: Hypoglycemia Protocol Stop: 10/24/24 18:08 Guaifenesin/Dextromethorphan (Guaifenesin/Dextrom Syrup 200mg/20mg 10ml Udc) 10 ml PO Q6H PRN PRN Reason: Cough Stop: 10/27/24 09:47 Last Admin: 09/27/24 21:40 Dose: 10 ml Magnesium Sulfate/Dextrose (Magnesium Sulfate / D5w) 1 gm in 100 mls @ 50 mls/hr IV Q2H MATILDA Stop: 09/28/24 15:59 Last Admin: 09/28/24 12:25 Dose: 50 mls/hr Insulin Aspart (Insulin Aspart Per Unit Charge) 0 units SC ACHS MATILDA Stop: 10/24/24 20:59 Last Admin: 09/28/24 12:44 Dose: Not Given Lisinopril (Lisinopril 10 Mg Tab) 10 mg PO QAM MATILDA Stop: 10/25/24 08:59 Last Admin: 09/28/24 08:59 Dose: 10 mg Menthol (Cough Drop (Sugar Free) Lacey 24 Lacey/1 Box) 1 lacey BUCCAL Q2H PRN PRN Reason: Sore Throat Stop: 10/25/24 01:27 Last Admin: 09/25/24 02:33 Dose: 1 lacey Miscellaneous (Carbohydrates For Hypoglycemia ) 15 - 30 gm PO UD PRN PRN Reason: Hypoglycemia Protocol Stop: 10/24/24 18:08 Ondansetron HCl (Ondansetron Inj 2 Mg/Ml 2 Ml Vial) 4 mg IV Q6H PRN PRN Reason: Nausea Stop: 10/24/24 14:27 Oxycodone HCl (Oxycodone Hcl Ir 5 Mg Tab (Immediate Release)) 5 mg PO Q3HWA PRN PRN Reason: Breakthrough Pain Stop: 10/08/24 11:54 Last Admin: 09/27/24 11:21 Dose: 5 mg Pantoprazole Sodium (Pantoprazole 40 Mg Tab) 40 mg PO DAILY MATILDA Stop: 10/25/24 08:59 Last Admin: 09/28/24 08:59 Dose: 40 mg Polyethylene Glycol (Polyethylene (Miralax) 17 Gm Pack) 17 gm PO DAILY PRN PRN Reason: Constipation Stop: 10/24/24 14:27 Rosuvastatin Calcium (Rosuvastatin Calcium 5 Mg Tab) 5 mg PO QAM [facility] Stop: 10/25/24 08:59 Last Admin: 09/28/24 09:00 Dose: 5 mg (1) Fracture, tibial plateau Encounter type: initial encounter Fracture type: closed Laterality: right Qualified Code(s): S82.141A - Displaced bicondylar fracture of right tibia, initial encounter for closed fracture (2) Fracture of proximal end of humerus Encounter type: initial encounter Fracture alignment: nondisplaced Fracture morphology: other fracture Fracture type: closed Laterality: right Qualified Code(s): S42.294A - Other nondisplaced fracture of upper end of right humerus, initial encounter for closed fracture
[2024-09-28] MEDS: ALBUT/IPRATROP 3MG/0.5MG NEB 3 ML VIAL NEB PRN (16:35)
[2024-09-28] MEDS: SODIUM CHLORIDE 0.9% 1,000 ML IV ONE (19:48)
[2024-09-28 20:37] LABS: Chlamydia pneumoniae PCR Not Detected (NotDetected); Coronavirus 229E PCR Not Detected (NotDetected); Coronavirus CoV-2 (COVID19)PCR Not Detected (NotDetected); Coronavirus HKU1 PCR Not Detected (NotDetected); Coronavirus NL63 PCR Not Detected (NotDetected); Coronavirus OC43PCR Not Detected (NotDetected); Human Metapneumovirus PCR Not Detected (NotDetected); Parainfluenza Virus 1 PCR Not Detected (NotDetected); Parainfluenza Virus 2 PCR Not Detected (NotDetected); Parainfluenza Virus 3 PCR DETECTED (NotDetected); Parainfluenza Virus 4 PCR Not Detected (NotDetected); Respiratory Syncytial VirusPCR Not Detected (NotDetected); Rhinovirus/Enterovirus PCR Not Detected (NotDetected)
[2024-09-28 20:43] LABS: Magnesium 2.3 mg/dl (1.7-2.4)
--- NOTE | 2024-09-29 11:16 | Electrocardiogram Report ---
Test Reason : Blood Pressure : */* mmHG Vent. Rate : 81 BPM Atrial Rate : 81 BPM P-R Int : 154 ms QRS Dur : 94 ms QT Int : 392 ms P-R-T Axes : 62 20 32 degrees QTcB Int : 455 ms Normal sinus rhythm Normal ECG When compared with ECG of 29-Apr-2023 11:05, No significant change was found Confirmed by Scooby Linder ([id number] on 09/29/2024 11:15:48 AM Referred By: REFERRED SELF Confirmed By: Scooby Linder
--- NOTE | 2024-09-29 12:48 | Hospitalist Progress Note ---
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 #Mechanical Fall with likely age-related osteoporotic fractures as below #Right Tibial Plateau Fracture #Right Humeral Fracture #Ambulatory Dysfunction -patient with right tibial fracture, right humeral fracture 2/2 mechanical fall -hypotensive episode in ED with good recovery post morphine IV 4mg Appreciate Ortho input and recommendation for conservative management Pain control with IV tylenol and breakthrough oxycodone, would avoid IV medications if possible -PT/OT, right sided nonweightbearing per ortho, sling for right humerus placed in ED -likely needs SNF Start eliquis 2.5 PO bid for DVT prophylaxis per ortho recs Clinically better today with minimal symptoms at rest Denies any increasing pain, shortness of breath at rest or any nausea no vomiting Pain is not well-controlled especially swelling of the right knee is noted with extreme pain with movement of the right knee joint and right lower extremity Will ask orthopedics to reevaluate Right knee is much better today and the pain is reasonably controlled Pain is reasonably controlled and has been getting physical therapy and will require rehab placement Has been having more pain today even complains to have pain with coughing and sneezing to the right shoulder Right knee pain seems to be reasonably stable Has had PT evaluation and recommended acute rehab Acute bronchitis Complaining cough with wheezing mostly anterior chest with minimal phlegm Chest x-ray is not showing any CHF and no pneumonia Started with Ceftin 500 mg twice daily Has been getting inhalers as needed and feeling better #MANDA -home CPAP ordered Minimal wheezing and cough she will be given albuterol inhaler also cough suppressants #DM Type 2 -only on farxiga at home -SSI ordered -continue protonix #HTN -continue lisinopril Awaiting PT and OT evaluation and may need placement PT recommended acute rehab Admission and Anticipated Discharge Date Admission Date: September 24, 2024 Subjective 09/25/2024 The patient was seen and examined in medical telemetry She has been complaining pain involving multiple areas including right upper extremity and also right knee Denies any more shortness of breath or wheezing and has been saturating normally on 2 L No other significant symptoms please 09/26/2024 The patient was seen and examined in the medical telemetry unit She has been complaining of pain in the right upper extremity and also right knee joint Has been getting narcotic pain medications are controlling pain to some extent Denies any other significant symptoms 09/27/2024 The patient was seen and examined in medical telemetry unit She has some wheezing and cough but denies any other significant symptoms Her pain seems to be controlled with current medication Her right knee is better today 09/28/2024 The patient was seen and examined in medical telemetry unit Her pain seems to be controlled but complains to have some wheezing and cough with whitish-yellow phlegm Chest x-ray did not show any evidence of CHF and/or pneumonia Denies any other significant symptoms 09/29/2024 The patient was seen and examined in medical telemetry unit She has been weak and also has cough with occasional wheezing Pain is not yet controlled She has been getting physical therapy Review of Systems Review of Systems: All systems reviewed and are unremarkable except as noted below Physical Exam Physical Exam: Lying in bed with some distress due to pain secondary to fall Constitutional: well developed, well nourished, + ill appearing and + morbidly obese Eyes: PERRL, conjunctivae normal, anicteric sclerae ENMT: external ear and nose normal, oropharynx normal Neck: trachea midline, no thyromegaly Respiratory: no respiratory distress Auscultation: + diminished lung sounds and + wheezes; no crackles Cardiovascular: Rate/Rhythm: regular rate and regular rhythm; not tachycardic Heart Sounds: normal S1 and normal S2; no murmur Extremities: + edema (Trace to 1+ edema bilaterally) Gastrointestinal (Abdomen): Inspection/Auscultation: normal bowel sounds; abdomen not distended Percussion/Palpation: abdomen soft; abdomen nontender Musculoskeletal: Right knee pain and also right upper extremity pain mostly in the shoulder Neurologic: normal touch/pain/proprioception and moves all extremities; no focal motor deficits Lymphatic: no cervical or axillary lymphadenopathy Results & Data Results & Data Vital Signs (Past 12 Hours) Vital Signs Temp Pulse Resp BP Pulse Ox O2 Del Method 09/29/24 11:31 37.3 C 104 H 18 136/76 92 Room Air 09/29/24 07:52 36.6 C 86 18 122/66 91 Room Air 09/29/24 02:45 86 18 91 Room Air 09/29/24 01:59 36.8 C 89 18 148/75 H 92 Room Air Medications Administered Current Inpatient Medications Acetaminophen (Acetaminophen 500 Mg Tab) 1,000 mg PO Q8H MATILDA Stop: 10/24/24 17:59 Last Admin: 09/29/24 09:02 Dose: 1,000 mg Albuterol (Albuterol Hfa 8 Gm Inhaler) 2 puffs INH QIDR PRN PRN Reason: Shortness Of Breath Or Wheezin Stop: 10/27/24 09:47 Last Admin: 09/29/24 10:44 Dose: 2 puffs Albuterol (Albut/Ipratrop 3mg/0.5mg Neb 3 Ml Vial) 3 ml NEB QIDR PRN; Protocol PRN Reason: Wheezing Stop: 10/28/24 12:42 Last Admin: 09/28/24 16:35 Dose: 3 ml Apixaban (Apixaban 2.5 Mg Tab) 2.5 mg PO BID MATILDA Stop: 10/24/24 20:59 Last Admin: 09/29/24 08:45 Dose: 2.5 mg Cefuroxime Axetil (Cefuroxime Axetil 500 Mg Tab) 500 mg PO BID MATILDA Stop: 10/03/24 11:59 Last Admin: 09/29/24 08:44 Dose: 500 mg Dapagliflozin (Dapagliflozin (Farxiga) 10 Mg Tab Non Formulary) 10 mg PO DAILY MATILDA Stop: 10/25/24 10:44 Last Admin: 09/29/24 08:49 Dose: 10 mg Dextrose (Dextrose 50% 50 Ml Syringe) 25 - 50 ml IV UD PRN; Protocol PRN Reason: Hypoglycemia Protocol Stop: 10/24/24 18:08 Glucagon (Glucagon For Inj 1 Mg Vial) 1 mg SQ UD PRN; Protocol PRN Reason: Hypoglycemia Protocol Stop: 10/24/24 18:08 Glucose (Glucose 40% Gel 15 Gm Tube) 15 - 30 gm PO UD PRN; Protocol PRN Reason: Hypoglycemia Protocol Stop: 10/24/24 18:08 Glucose (Glucose 10 Tab/Tube) 4 - 8 tab PO UD PRN; Protocol PRN Reason: Hypoglycemia Protocol Stop: 10/24/24 18:08 Guaifenesin/Dextromethorphan (Guaifenesin/Dextrom Syrup 200mg/20mg 10ml Udc) 10 ml PO Q6H PRN PRN Reason: Cough Stop: 10/27/24 09:47 Last Admin: 09/29/24 08:56 Dose: 10 ml Insulin Aspart (Insulin Aspart Per Unit Charge) 0 units SC ACHS [facility] Stop: 10/24/24 20:59 Last Admin: 09/29/24 12:32 Dose: Not Given Lisinopril (Lisinopril 10 Mg Tab) 10 mg PO QAM [facility] Stop: 10/25/24 08:59 Last Admin: 09/29/24 08:45 Dose: 10 mg Menthol (Cough Drop (Sugar Free) Lacey 24 Lacey/1 Box) 1 lacey BUCCAL Q2H PRN PRN Reason: Sore Throat Stop: 10/25/24 01:27 Last Admin: 09/25/24 02:33 Dose: 1 lacey Miscellaneous (Carbohydrates For Hypoglycemia ) 15 - 30 gm PO UD PRN PRN Reason: Hypoglycemia Protocol Stop: 10/24/24 18:08 Ondansetron HCl (Ondansetron Inj 2 Mg/Ml 2 Ml Vial) 4 mg IV Q6H PRN PRN Reason: Nausea Stop: 10/24/24 14:27 Oxycodone HCl (Oxycodone Hcl Ir 5 Mg Tab (Immediate Release)) 5 mg PO Q3HWA PRN PRN Reason: Breakthrough Pain Stop: 10/08/24 11:54 Last Admin: 09/27/24 11:21 Dose: 5 mg Pantoprazole Sodium (Pantoprazole 40 Mg Tab) 40 mg PO DAILY [facility] Stop: 10/25/24 08:59 Last Admin: 09/29/24 08:45 Dose: 40 mg Polyethylene Glycol (Polyethylene (Miralax) 17 Gm Pack) 17 gm PO DAILY PRN PRN Reason: Constipation Stop: 10/24/24 14:27 Rosuvastatin Calcium (Rosuvastatin Calcium 5 Mg Tab) 5 mg PO QAM [facility] Stop: 10/25/24 08:59 Last Admin: 09/29/24 08:45 Dose: 5 mg (1) Fracture, tibial plateau Encounter type: initial encounter Fracture type: closed Laterality: right Qualified Code(s): S82.141A - Displaced bicondylar fracture of right tibia, initial encounter for closed fracture (2) Fracture of proximal end of humerus Encounter type: initial encounter Fracture alignment: nondisplaced Fracture morphology: other fracture Fracture type: closed Laterality: right Qualified Code(s): S42.294A - Other nondisplaced fracture of upper end of right humerus, initial encounter for closed fracture
[2024-09-29] MEDS: ONDANSETRON INJ 2 MG/ML 2 ML VIAL IV PRN (13:55)
[2024-09-29] MEDS: MICONAZOLE NITRATE POWDER 85 GM EXT PRN (17:39)
[2024-09-29] MEDS: PROMETHAZINE 12.5 MG/50.5 ML BAG IV STA (20:30)
[2024-09-30] MEDS ORDERED: ATROPINE SULFATE 0.1 MG/ML 10ML SYR IV PRN (01:42)
--- NOTE | 2024-09-30 01:42 | Communication Note ---
Date of Service: September 30, 2024 Patient with episodic nausea, vomiting symptoms overnight. No headache or abdominal pain as per RN. Last BM yesterday as per RN. Clear liquid diet for now
[2024-09-30 04:55] LABS: Thyroid Stimulating Hormone 2.063 uIu/ml (0.300-4.500)
[2024-09-30] MEDS: PROMETHAZINE 12.5 MG/50.5 ML BAG IV PRN (11:01)
[2024-09-30] MEDS: ACETAMINOPHEN 1,000 MG/100 ML VIAL IV PRN (11:29)
[2024-09-30] MEDS: SODIUM CHLORIDE 0.9% 1,000 ML IV SCH (17:34)
--- NOTE | 2024-09-30 17:40 | Hospitalist Progress Note ---
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 #Mechanical Fall with likely age-related osteoporotic fractures as below #Right Tibial Plateau Fracture #Right Humeral Fracture #Ambulatory Dysfunction -patient with right tibial fracture, right humeral fracture 2/2 mechanical fall -hypotensive episode in ED with good recovery post morphine IV 4mg Appreciate Ortho input and recommendation for conservative management Pain control with IV tylenol and breakthrough oxycodone, would avoid IV medications if possible -PT/OT, right sided nonweightbearing per ortho, sling for right humerus placed in ED -likely needs SNF Start eliquis 2.5 PO bid for DVT prophylaxis per ortho recs Clinically better today with minimal symptoms at rest Denies any increasing pain, shortness of breath at rest or any nausea no vomiting Pain is not well-controlled especially swelling of the right knee is noted with extreme pain with movement of the right knee joint and right lower extremity Will ask orthopedics to reevaluate Right knee is much better today and the pain is reasonably controlled Pain is reasonably controlled and has been getting physical therapy and will require rehab placement Has been having more pain today even complains to have pain with coughing and sneezing to the right shoulder Right knee pain seems to be reasonably stable Has had PT evaluation and recommended acute rehab #Acute bronchitis, Parainfluenza Complaining cough with wheezing mostly anterior chest with minimal phlegm Chest x-ray is not showing any CHF and no pneumonia Started with Ceftin 500 mg twice daily Has been getting inhalers as needed and feeling better / (+) wheezing nebs q6h ordered Mucinex, IS, Flutter valve continue Cefuroxime BID #MANDA -home CPAP ordered Minimal wheezing and cough she will be given albuterol inhaler also cough suppressants #DM Type 2 -only on farxiga at home -SSI ordered -continue protonix #HTN -continue lisinopril PT recommended acute rehab Admission and Anticipated Discharge Date Admission Date: September 24, 2024 Subjective ff up R humerus and Knee fracture, etc seen resting in bed, not in distress states she feels tired, still has dry cough, no shortness of breath has poor appetite no chest pain, dizziness, palpitations no nausea/vomiting, abdominal pain no fever/chills pain adequately controlled no other symptoms Review of Systems Review of Systems: all noted and negative except for above Physical Exam Physical Exam: General- oriented x 3, not in distress, speaks in sentences with no effort or accessory muscle use Eyes- anicteric Neck- no JVD Lungs- mild faint wheeze bilaterally no crackles Heart- normal rate, regular rhythm; no murmurs Abdomen- normal bowel sounds, nondistended, soft, nontender Extremities- no pretibial edema, no calf tenderness Neuro- alert, oriented x 3; no gross focal neurologic deficits Skin- warm & dry Results & Data Results & Data Vital Signs (Past 12 Hours) Vital Signs Temp Pulse Pulse Resp BP Pulse Ox O2 Del Method 09/30/24 15:53 36.4 C L 80 18 140/73 90 Room Air 09/30/24 15:30 78 09/30/24 12:04 36.6 C 92 H 20 128/70 92 Room Air 09/30/24 11:17 78 18 92 Room Air 09/30/24 09:01 Room Air 09/30/24 07:25 77 09/30/24 07:15 36.6 C 80 18 137/80 90 Room Air all noted and reviewed including below (1) Fracture, tibial plateau Encounter type: initial encounter Fracture type: closed Laterality: right Qualified Code(s): S82.141A - Displaced bicondylar fracture of right tibia, initial encounter for closed fracture (2) Fracture of proximal end of humerus Encounter type: initial encounter Fracture alignment: nondisplaced Fracture morphology: other fracture Fracture type: closed Laterality: right Qualified Code(s): S42.294A - Other nondisplaced fracture of upper end of right humerus, initial encounter for closed fracture
--- NOTE | 2024-09-30 18:05 | XRay Report ---
Chest radiograph, one view History: Wheezing Comparison: None Findings: Single AP view of the chest performed. No focal consolidation or pleural effusion. No pneumothorax. The cardiomediastinal silhouette is within normal limits. Normal pulmonary vascularity. No evidence for lymphadenopathy. No visualized bony or soft tissue abnormality. Impression: Normal chest radiograph Electronically signed by Scooby Grewal 09-30-2024 6:05 PM
[2024-09-30] MEDS: LEVALBUTEROL 1.25 MG/3 ML NEB NEB SCH (19:31)
[2024-10-01] MEDS: IPRATROPIUM BROMIDE NEB SOLN 0.02% 0.5MG/2.5ML VIAL NEB SCH (01:54)
[2024-10-01] MEDS ORDERED: predniSONE 20 MG TAB PO SCH (08:45)
[2024-10-01 09:08] LABS: Hematocrit (blood only) 40.5 % (37.0-47.0); Hemoglobin 13.6 g/dl (12.0-16.0); Immature Granulocytes # (auto) 0.02 K/uL (0.01-0.20); Immature Granulocytes % (auto) 0.4 %; Mean Corpuscular Hemoglobin 30.4 pg (25.0-34.0); Mean Corpuscular Volume 90.4 fL (80.0-100.0); Platelet Count 236 K/uL (130-400); RDW Standard Deviation 43.1 fL (36.4-46.3); Red Blood Count 4.48 M/uL (4.20-5.40); White Blood Count 5.45 K/ul (4.8-10.8)
[2024-10-01 09:25] LABS: Alanine Aminotransferase 15.0 U/L (7-52); Albumin Globulin Ratio 1.2 (0.9-2); Alkaline Phosphatase 92.0 U/L (34-104); Anion Gap 10.0 (3-11); Bilirubin,Total 0.9 mg/dl (0.2-1.0); Blood Urea Nitrogen 20.0 mg/dl (6-23); Calcium 9.2 mg/dl (8.6-10.3); Carbon Dioxide 27.0 mmol/L (21-32); Chloride 105.0 mmol/L (98-107); Creatinine Clr Calc Pharmacy 128.5 ml/min; Globulin 3.1 gm/dl (2.5-4.0); Glucose 111.0 mg/dl (70-99(Fasting)); Potassium 3.3 mmol/L (3.5-5.1); Sodium 142.0 mmol/L (136-145); Total Protein 6.9 gm/dl (6.0-8.3)
[2024-10-01] MEDS: predniSONE 20 MG TAB PO ONE (10:20)
[2024-10-01] MEDS: LACTULOSE SYRUP 20 GM/30 ML UDC PO STA ×2 (10:20→17:53)
--- NOTE | 2024-10-01 10:33 | XRay Report ---
XR knee RT 1 or 2V routine CLINICAL HISTORY: ff up fracture COMPARISON: 09/24/2024 FINDINGS: Lateral tibial plateau fracture remains nondisplaced. There is a mild joint effusion, impr freddy. Stable osteoarthritis. IMPRESSION: Stable alignment. ACT 112: Negative or not required by law. Electronically signed by: Elver Wiley M.D. 10/01/2024 10:32 AM
--- NOTE | 2024-10-01 10:34 | XRay Report ---
XR shoulder RT min 2V routine CLINICAL HISTORY: ff up fracture COMPARISON: 09/24/2024 FINDINGS: Comminuted minimally displaced fracture proximal right humerus has stable alignment. IMPRESSION: Stable alignment. ACT 112: Negative or not required by law. Electronically signed by: Elver Wiley M.D. 10/01/2024 10:32 AM
--- NOTE | 2024-10-01 10:34 | XRay Report ---
XR humerus RT 2V CLINICAL HISTORY: ff up fracture COMPARISON: 10/01/2024 FINDINGS: Comminuted minimally displaced fracture proximal right humerus has stable alignment. IMPRESSION: Stable alignment. ACT 112: Negative or not required by law. Electronically signed by: Elver Wiley M.D. 10/01/2024 10:33 AM
--- NOTE | 2024-10-01 10:34 | XRay Report ---
KUB HISTORY: constipation COMPARISON STUDY: 06/11/2024 FINDINGS: There is moderate retained stool. No bowel obstruction seen. No gross free air. IMPRESSION: Moderate retained stool. ACT 112: Negative or not required by law. The above report was generated using voice recognition software. It may contain grammatical, syntax o r spelling errors. Electronically signed by: Elver Wiley M.D. 10/01/2024 10:33 AM
--- NOTE | 2024-10-01 17:04 | Hospitalist Progress Note ---
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 #Mechanical Fall with likely age-related osteoporotic fractures as below #Right Tibial Plateau Fracture #Right Humeral Fracture #Ambulatory Dysfunction -patient with right tibial fracture, right humeral fracture 2/2 mechanical fall -hypotensive episode in ED with good recovery post morphine IV 4mg Appreciate Ortho input and recommendation for conservative management Pain control with IV tylenol and breakthrough oxycodone, would avoid IV medications if possible -PT/OT, right sided nonweightbearing per ortho, sling for right humerus placed in ED -likely needs SNF Start eliquis 2.5 PO bid for DVT prophylaxis per ortho recs Clinically better today with minimal symptoms at rest Denies any increasing pain, shortness of breath at rest or any nausea no vomiting Pain is not well-controlled especially swelling of the right knee is noted with extreme pain with movement of the right knee joint and right lower extremity Will ask orthopedics to reevaluate Right knee is much better today and the pain is reasonably controlled Pain is reasonably controlled and has been getting physical therapy and will require rehab placement Has been having more pain today even complains to have pain with coughing and sneezing to the right shoulder Right knee pain seems to be reasonably stable Has had PT evaluation and recommended acute rehab 10/01 Repeat x-rays of the right shoulder, humerus, knee: Stable fractures Will request orthopedic service to evaluate x-rays and obtain further recommendations re: conservative measures versus surgical intervention #Acute bronchitis, Parainfluenza Complaining cough with wheezing mostly anterior chest with minimal phlegm Chest x-ray is not showing any CHF and no pneumonia Started with Ceftin 500 mg twice daily Has been getting inhalers as needed and feeling better 09/30 (+) wheezing nebs q6h ordered Mucinex, IS, Flutter valve continue Cefuroxime BID 10/01 patient with persistent wheezing Fortunately remains on room air Start prednisone 40 mg p.o. daily Nebs every 6 hours, Mucinex, incentive spirometry, flutter valve Continue cefuroxime twice daily #MANDA -home CPAP ordered Minimal wheezing and cough she will be given albuterol inhaler also cough suppressants #DM Type 2 -only on farxiga at home -SSI ordered -continue protonix #HTN -continue lisinopril PT recommended acute rehab Admission and Anticipated Discharge Date Admission Date: September 24, 2024 Subjective follow-up for right humerus and knee fractures, etc. Seen resting in bed, awake and alert, comfortable, not in distress Patient's Bill at the bedside States she feels improved compared to yesterday Less weak, still having cough but now productive, less chest congestion No fevers or chills No shortness of breath Right arm and knee pain adequately controlled no other new symptoms Review of Systems Review of Systems: all noted and negative except for above Physical Exam Physical Exam: General- oriented x 3, not in distress, speaks in sentences with no effort or accessory muscle use Eyes- anicteric Neck- no JVD Lungs- (+) mild expiratory wheeze bilaterally no crackles Heart- normal rate, regular rhythm; no murmurs Abdomen- normal bowel sounds, nondistended, soft, nontender Extremities- no pretibial edema, no calf tenderness Right upper extremity: Positive sling, No hand edema Right knee: Very mild edema but no erythema/warmth/tenderness Neuro- alert, oriented x 3; no gross focal neurologic deficits Skin- warm & dry Results & Data Results & Data Vital Signs (Past 12 Hours) Vital Signs Temp Pulse Pulse Resp BP Pulse Ox O2 Del Method 10/01/24 15:50 36.9 C 76 18 137/75 94 Room Air 10/01/24 15:32 76 10/01/24 13:30 80 19 91 Room Air 10/01/24 11:35 36.5 C 76 18 151/80 H 94 Room Air 10/01/24 10:53 Room Air 10/01/24 08:13 36.5 C 77 18 159/78 H 91 Room Air 10/01/24 07:22 72 16 93 Room Air 10/01/24 07:20 69 all noted and reviewed including below (1) Fracture, tibial plateau Encounter type: initial encounter Fracture type: closed Laterality: right Qualified Code(s): S82.141A - Displaced bicondylar fracture of right tibia, initial encounter for closed fracture (2) Fracture of proximal end of humerus Encounter type: initial encounter Fracture alignment: nondisplaced Fracture morphology: other fracture Fracture type: closed Laterality: right Qualified Code(s): S42.294A - Other nondisplaced fracture of upper end of right humerus, initial encounter for closed fracture
[2024-10-01] MEDS: POTASSIUM CHLORIDE 10 MEQ TABCR PO STA (17:51)
[2024-10-01] MEDS: guaiFENesin 600 MG TABCR PO SCH (20:21)
[2024-10-02] MEDS: POLYETHYLENE (MIRALAX) 17 GM PACK PO PRN (07:44)
[2024-10-02] MEDS: predniSONE 20 MG TAB PO STA (10:26)
--- NOTE | 2024-10-02 10:59 | Orthopedic Progress Note ---
Date of Service October 02, 2024 Assessment & Plan (1) Morbid obesity with BMI of 40.0-44.9, adult: (2) Type 2 diabetes mellitus: (3) Fracture of greater tuberosity of right humerus: Plan: Sling on right upper extremity No weightbearing with the right upper extremity Patient may come out of the sling to work on range of motion of her elbow hand wrist and fingers Ice with easy wrap Patient will need to follow-up in our office in approximately 1 week for set of x-rays of her right shoulder (4) Closed fracture of lateral portion of right tibial plateau: Plan: Nonweightbearing on Right lower extremity for the next 4 to 6 weeks. No knee immobilizer brace is needed. Range of motion should be encouraged of her right knee so she does not get too stiff. Follow-up with [facility] in 1 week for x-rays of the right knee SCDs and teds were ordered Patient is on Eliquis for DVT prophylaxis wheelchair for transportation. She should be safe to transfer from her bed to a chair with assistance so long as she is not using her right arm to support herself. Patient will need to be [facility] to a prison facility for rehab. Patient states she has discussed this with case management and would like to go to [facility]. Once she is medically stable she will be discharged there for rehab and prison care. Follow-up at [facility] orth[facility] With questions contact our clinic at [phone] (5) Arthritis of right knee: (6) Osteopenia: Admission and Anticipated Discharge Date Admission Date: September 24, 2024 Subjective This 73-year-old female seen for follow-up of a right proximal humerus greater tuberosity fracture and a right lateral tibial plateau fracture. Nursing was present during examination they state that the patient has not been out of bed yet. They stated that yesterday they had her sit on the edge of the bed but she has been unable to participate with physical therapy due to illness and weakness. Patient states that she is just slightly short of breath and had a cough and was diagnosed with bronchitis a few days ago. They are currently treating her for this. She states that she has no pain in her shoulder as long as she does not move it. She states that her knee pain is very minimal. Currently she denies chest pain, fever, chills, sweats, nausea, vomiting, diarrhea or numbness or tingling in the right or left lower extremities. Review of Systems Review of Systems: All systems reviewed & are unremarkable except as noted in Subjective Physical Exam Physical Exam: Right upper extremity: Patient has tenderness to palpation over the greater tuberosity of the humerus with physical edema. There is no erythema or ecchymosis. When I undid the neck strap on her sling she was able to reach 10 degrees short of terminal extension and 90 degrees of flexion at her elbow. I did not have her move her shoulder because of discomfort. She has full range of motion of her hand wrist fingers. She is able to resist distraction pincer grasp and thumb and index finger and resist compression of digits 2 through 5. She is able to detect light sensation to touch of the pads of all digits. Her peripheral pulses are 2+. Right knee: Patient has tenderness to palpation over the lateral tibial plateau with visible edema and some slight ecchymosis. She is unable to perform right straight leg raise test. She is able to actively dorsi and plantarflex her foot. Her peripheral pulses are 2+. She is able to detect light sensation to touch over the pads of all digits. Active knee range of motion is from 0 degrees of extension to about 60 degrees of flexion. Results & Data Vital Signs (Past 12 Hours) Vital Signs Temp Pulse Pulse Resp BP Pulse Ox O2 Del Method 10/02/24 08:51 36.8 C 82 17 144/76 H 90 Room Air 10/02/24 07:16 71 17 94 Room Air 10/02/24 07:09 69 10/02/24 02:57 36.4 C L 74 18 151/86 H 93 Room Air 10/02/24 00:03 84 18 94 Room Air Diagnostic Findings Laboratory Results WBC 5.45 K/ul (4.8-10.8) 10/01/24 08:41 RBC 4.48 M/uL (4.20-5.40) 10/01/24 08:41 Hgb 13.6 g/dl (12.0-16.0) 10/01/24 08:41 Hct 40.5 % (37.0-47.0) 10/01/24 08:41 MCV 90.4 fL (80.0-100.0) 10/01/24 08:41 MCH 30.4 pg (25.0-34.0) 10/01/24 08:41 MCHC 33.6 g/dL (32.0-36.0) 10/01/24 08:41 RDW Std Deviation 43.1 fL (36.4-46.3) 10/01/24 08:41 RDW Coeff of Ramos 13.0 % (11.5-14.5) 10/01/24 08:41 Plt Count 236 K/uL (130-400) 10/01/24 08:41 MPV 9.1 fL (9.4-12.4) L 10/01/24 08:41 Immature Gran % (Auto) 0.4 % 10/01/24 08:41 Neut % (Auto) 68.6 % 10/01/24 08:41 Lymph % (Auto) 22.8 % 10/01/24 08:41 [place] % (Auto) 5.9 % 10/01/24 08:41 Eos % (Auto) 1.7 % 10/01/24 08:41 Baso % (Auto) 0.6 % 10/01/24 08:41 Neut # (Auto) 3.75 K/uL (1.40-6.50) 10/01/24 08:41 Lymph # (Auto) 1.24 K/uL (1.20-3.40) 10/01/24 08:41 [place] # (Auto) 0.32 K/uL (0.11-0.59) 10/01/24 08:41 Eos # (Auto) 0.09 K/uL (0.00-0.50) 10/01/24 08:41 Baso # (Auto) 0.03 K/uL (0.00-0.20) 10/01/24 08:41 Immature Gran # (Auto) 0.02 K/uL (0.01-0.20) 10/01/24 08:41 Sodium 142 mmol/L (136-145) 10/01/24 08:41 Potassium 3.3 mmol/L (3.5-5.1) L 10/01/24 08:41 Chloride 105 mmol/L (98-107) 10/01/24 08:41 Carbon Dioxide 27 mmol/L (21-32) 10/01/24 08:41 Anion Gap 10 (3-11) 10/01/24 08:41 BUN 20 mg/dl (6-23) 10/01/24 08:41 Creatinine 0.47 mg/dl (0.6-1.2) L 10/01/24 08:41 Est Cr Clr Drug Dosing 128.5 ml/min 10/01/24 08:41 eGFR 101.09 10/01/24 08:41 BUN/Creatinine Ratio 42.6 (10-20) H 10/01/24 08:41 Glucose 111 mg/dl (70-99(Fasting)) H 10/01/24 08:41 POC Glucose 134 mg/dl (70-99) H 10/02/24 08:30 Calcium 9.2 mg/dl (8.6-10.3) 10/01/24 08:41 Magnesium 2.3 mg/dl (1.7-2.4) 09/28/24 19:45 Total Bilirubin 0.9 mg/dl (0.2-1.0) 10/01/24 08:41 AST 21 U/L (13-39) 10/01/24 08:41 ALT 15 U/L (7-52) 10/01/24 08:41 Alkaline Phosphatase 92 U/L (34-104) 10/01/24 08:41 Total Protein 6.9 gm/dl (6.0-8.3) 10/01/24 08:41 Albumin 3.8 gm/dl (3.4-5.0) 10/01/24 08:41 Globulin 3.1 gm/dl (2.5-4.0) 10/01/24 08:41 Albumin/Globulin Ratio 1.2 (0.9-2) 10/01/24 08:41 TSH 2.063 uIu/ml (0.300-4.500) 09/28/24 19:45 Adenovirus (PCR) Not Detected (NotDetected) 09/28/24 19:45 B. pertussis DNA (PCR) Not Detected (NotDetected) 09/28/24 19:45 B.parapertussis DNA PCR Not Detected (NotDetected) 09/28/24 19:45 C. pneumoniae DNA (PCR) Not Detected (NotDetected) 09/28/24 19:45 Coronavirus OC43 (PCR) Not Detected (NotDetected) 09/28/24 19:45 Coronavirus HKU1 (PCR) Not Detected (NotDetected) 09/28/24 19:45 Coronavirus 229E (PCR) Not Detected (NotDetected) 09/28/24 19:45 SARS-CoV-2 (PCR) Not Detected (NotDetected) 09/28/24 19:45 Coronavirus NL63 (PCR) Not Detected (NotDetected) 09/28/24 19:45 Human Metapneumovir PCR Not Detected (NotDetected) 09/28/24 19:45 Influenza Type A (PCR) Not Detected (NotDetected) 09/28/24 19:45 Influenza Type B (PCR) Not Detected (NotDetected) 09/28/24 19:45 M. pneumoniae (PCR) Not Detected (NotDetected) 09/28/24 19:45 Parainfluenza 1 (PCR) Not Detected (NotDetected) 09/28/24 19:45 Parainfluenza 2 (PCR) Not Detected (NotDetected) 09/28/24 19:45 Parainfluenza 3 (PCR) DETECTED (NotDetected) A 09/28/24 19:45 Parainfluenza 4 (PCR) Not Detected (NotDetected) 09/28/24 19:45 RSV (PCR) Not Detected (NotDetected) 09/28/24 19:45 Entero/Rhino (PCR) Not Detected (NotDetected) 09/28/24 19:[address] 09/24/24 11:07 CT SCAN OF THE RIGHT KNEE WITHOUT IV CONTRAST CLINICAL HISTORY: Right knee injury. Abnormal x-ray. COMPARISON STUDY: Right knee x-rays dated 09/24/2024. TECHNIQUE: CT scan of the right knee is performed from the distal femur to the proximal tibia and fibula. Images are reviewed in the axial, sagittal, and coronal planes. IV contrast was not administered for this examination. A dose lowering technique was utilized adhering to the principles of ALARA. CT DOSE: 533.6 mGy.cm FINDINGS: The skeletal structures are osteopenic. There is a moderate to large joint effusion with lipohemarthrosis indicating acute fracture. There is a subtle impacted fracture along the anterior cortex of the lateral tibial plateau. This is best seen on coronal image #43 and sagittal image #37. There is only minimal depression at this site. The medial tibial plateau is intact. The distal femur, proximal fibula, and patella are maintained. There is moderate degenerative narrowing in the medial compartment. Mild narrowing is seen in the lateral compartment. There is generalized atrophy of the regional musculature. IMPRESSION: 1. There is a large joint effusion with lipohemarthrosis indicating acute fracture. 2. There is a subtle impacted fracture along the anterior aspect of the lateral tibial plateau. 3. No additional acute fracture is seen. 4. Osteopenia and degenerative change as above. ACT 112: Negative or not required by law. Electronically signed by: Nahid Petit M.D. 09/24/2024 11:51 AM Chest X-Ray 09/30/24 17:05 Chest radiograph, one view History: Wheezing Comparison: None Findings: Single AP view of the chest performed. No focal consolidation or pleural effusion. No pneumothorax. The cardiomediastinal silhouette is within normal limits. Normal pulmonary vascularity. No evidence for lymphadenopathy. No visualized bony or soft tissue abnormality. Impression: Normal chest radiograph Electronically signed by Scooby Grewal 09-30-2024 6:05 PM Humerus X-Ray 10/01/24 08:44 XR humerus RT 2V CLINICAL HISTORY: ff up fracture COMPARISON: 10/01/2024 FINDINGS: Comminuted minimally displaced fracture proximal right humerus has stable alignment. IMPRESSION: Stable alignment. ACT 112: Negative or not required by law. Electronically signed by: Elver Wiley M.D. 10/01/2024 10:33 AM Knee X-Ray 10/01/24 08:44 XR knee RT 1 or 2V routine CLINICAL HISTORY: ff up fracture COMPARISON: 09/24/2024 FINDINGS: Lateral tibial plateau fracture remains nondisplaced. There is a mild joint effusion, improved. Stable osteoarthritis. IMPRESSION: Stable alignment. ACT 112: Negative or not required by law. Electronically signed by: Elver Wiley M.D. 10/01/2024 10:32 AM Shoulder X-Ray 10/01/24 08:44 XR shoulder RT min 2V routine CLINICAL HISTORY: ff up fracture COMPARISON: 09/24/2024 FINDINGS: Comminuted minimally displaced fracture proximal right humerus has stable alignment. IMPRESSION: Stable alignment. ACT 112: Negative or not required by law. Electronically signed by: Elver Wiley M.D. 10/01/2024 10:32 AM KUB X-Ray 10/01/24 08:46 KUB HISTORY: constipation COMPARISON STUDY: 06/11/2024 FINDINGS: There is moderate retained stool. No bowel obstruction seen. No gross free air. IMPRESSION: Moderate retained stool. ACT 112: Negative or not required by law. The above report was generated using voice recognition software. It may contain grammatical, syntax or spelling errors. Electronically signed by: Elver Wiley M.D. 10/01/2024 10:33 AM
--- NOTE | 2024-10-02 18:31 | Hospitalist Progress Note ---
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 #Mechanical Fall with likely age-related osteoporotic fractures as below #Right Tibial Plateau Fracture #Right Humeral Fracture #Ambulatory Dysfunction -patient with right tibial fracture, right humeral fracture 2/2 mechanical fall -hypotensive episode in ED with good recovery post morphine IV 4mg Appreciate Ortho input and recommendation for conservative management Pain control with IV tylenol and breakthrough oxycodone, would avoid IV medications if possible -PT/OT, right sided nonweightbearing per ortho, sling for right humerus placed in ED -likely needs SNF Start eliquis 2.5 PO bid for DVT prophylaxis per ortho recs Clinically better today with minimal symptoms at rest Denies any increasing pain, shortness of breath at rest or any nausea no vomiting Pain is not well-controlled especially swelling of the right knee is noted with extreme pain with movement of the right knee joint and right lower extremity Will ask orthopedics to reevaluate Right knee is much better today and the pain is reasonably controlled Pain is reasonably controlled and has been getting physical therapy and will require rehab placement Has been having more pain today even complains to have pain with coughing and sneezing to the right shoulder Right knee pain seems to be reasonably stable Has had PT evaluation and recommended acute rehab 10/01 Repeat x-rays of the right shoulder, humerus, knee: Stable fractures Will request orthopedic service to evaluate x-rays and obtain further recommendations re: conservative measures versus surgical intervention 10/02 continue conservative management, supportive care per Ortho #Acute bronchitis, Parainfluenza Complaining cough with wheezing mostly anterior chest with minimal phlegm Chest x-ray is not showing any CHF and no pneumonia Started with Ceftin 500 mg twice daily Has been getting inhalers as needed and feeling better 09/30 (+) wheezing nebs q6h ordered Mucinex, IS, Flutter valve continue Cefuroxime BID 10/01 patient with persistent wheezing Fortunately remains on room air Start prednisone 40 mg p.o. daily Nebs every 6 hours, Mucinex, incentive spirometry, flutter valve Continue cefuroxime twice daily 10/02 on room air breathing improving but still having some wheezing Prednisone 40mg daily add Budesonide, Hypertonic saline continue Nebs q6h continue Cefuroxime BID ff up sputum culture #MANDA -home CPAP ordered Minimal wheezing and cough she will be given albuterol inhaler also cough suppressants #DM Type 2 -only on farxiga at home -SSI ordered -continue protonix #HTN -continue lisinopril PT recommended acute rehab Admission and Anticipated Discharge Date Admission Date: September 24, 2024 Subjective ff up for acute bronchitis, R shoulder and knee fracture, etc seen resting in bed, comfortable states she feels improved compared to yesterday able to expectorate more phlegm, still having some cough, breathing seems to be easier today Denies any fevers or chills No BMs yet No nausea, positive flatus Reevaluated in the evening around 6:15 PM States breathing is continuing to improve positive BM after enema Review of Systems Review of Systems: all noted and negative except for above Physical Exam Physical Exam: General- oriented x 3, not in distress, speaks in sentences with no effort or accessory muscle use Eyes- anicteric Neck- no JVD Lungs- (+) mild scattered wheeze BL Heart- normal rate, regular rhythm; no murmurs Abdomen- normal bowel sounds, nondistended, soft, nontender Extremities- no pretibial edema, no calf tenderness Neuro- alert, oriented x 3; no gross focal neurologic deficits Skin- warm & dry Results & Data Results & Data Vital Signs (Past 12 Hours) Vital Signs Temp Pulse Pulse Resp BP Pulse Ox O2 Del Method 10/02/24 18:13 84 17 95 Room Air 10/02/24 18:03 36.5 C 80 18 158/72 H 92 Room Air 10/02/24 15:11 84 10/02/24 13:26 72 17 96 Room Air 10/02/24 11:43 Room Air 10/02/24 08:51 36.8 C 82 17 144/76 H 90 Room Air 10/02/24 07:16 71 17 94 Room Air 10/02/24 07:09 69 FiO2 10/02/24 18:13 21 10/02/24 18:03 10/02/24 15:11 10/02/24 13:26 21 10/02/24 11:43 10/02/24 08:51 10/02/24 07:16 10/02/24 07:09 all noted and reviewed including below (1) Fracture, tibial plateau Encounter type: initial encounter Fracture type: closed Laterality: right Qualified Code(s): S82.141A - Displaced bicondylar fracture of right tibia, initial encounter for closed fracture (2) Fracture of proximal end of humerus Encounter type: initial encounter Fracture alignment: nondisplaced Fracture morphology: other fracture Fracture type: closed Laterality: right Qualified Code(s): S42.294A - Other nondisplaced fracture of upper end of right humerus, initial encounter for closed fracture
[2024-10-02] MEDS: SODIUM CHLOR 7% 4 ML NEB NEB SCH (19:48)
[2024-10-02] MEDS: BUDESONIDE 0.25 MG/2 ML VIAL (PULMICORT) NEB SCH (19:48)
[2024-10-03] MEDS: predniSONE 20 MG TAB PO ONE (11:50)
--- NOTE | 2024-10-03 19:55 | Hospitalist Progress Note ---
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 #Mechanical Fall with likely age-related osteoporotic fractures as below #Right Tibial Plateau Fracture #Right Humeral Fracture #Ambulatory Dysfunction -patient with right tibial fracture, right humeral fracture 2/2 mechanical fall -hypotensive episode in ED with good recovery post morphine IV 4mg Appreciate Ortho input and recommendation for conservative management Pain control with IV tylenol and breakthrough oxycodone, would avoid IV medications if possible -PT/OT, right sided nonweightbearing per ortho, sling for right humerus placed in ED -likely needs SNF Start eliquis 2.5 PO bid for DVT prophylaxis per ortho recs Clinically better today with minimal symptoms at rest Denies any increasing pain, shortness of breath at rest or any nausea no vomiting Pain is not well-controlled especially swelling of the right knee is noted with extreme pain with movement of the right knee joint and right lower extremity Will ask orthopedics to reevaluate Right knee is much better today and the pain is reasonably controlled Pain is reasonably controlled and has been getting physical therapy and will require rehab placement Has been having more pain today even complains to have pain with coughing and sneezing to the right shoulder Right knee pain seems to be reasonably stable Has had PT evaluation and recommended acute rehab 10/01 Repeat x-rays of the right shoulder, humerus, knee: Stable fractures Will request orthopedic service to evaluate x-rays and obtain further recommendations re: conservative measures versus surgical intervention 10/02 continue conservative management, supportive care per Ortho #Acute bronchitis, Parainfluenza Complaining cough with wheezing mostly anterior chest with minimal phlegm Chest x-ray is not showing any CHF and no pneumonia Started with Ceftin 500 mg twice daily Has been getting inhalers as needed and feeling better 09/30 (+) wheezing nebs q6h ordered Mucinex, IS, Flutter valve continue Cefuroxime BID 10/01 patient with persistent wheezing Fortunately remains on room air Start prednisone 40 mg p.o. daily Nebs every 6 hours, Mucinex, incentive spirometry, flutter valve Continue cefuroxime twice daily 10/02 on room air breathing improving but still having some wheezing Prednisone 40mg daily add Budesonide, Hypertonic saline continue Nebs q6h continue Cefuroxime BID ff up sputum culture 10/03 improving, less wheezing Continue prednisone 40 mg daily Continue nebs Continue antibiotic Serum culture negative so far #MANDA -home CPAP ordered Minimal wheezing and cough she will be given albuterol inhaler also cough suppressants #DM Type 2 -only on farxiga at home -SSI ordered -continue protonix #HTN -continue lisinopril PT recommended acute rehab Admission and Anticipated Discharge Date Admission Date: September 24, 2024 Subjective Resting in bed, comfortable, in good spirits Off oxygen supplement States she feels better today Breathing much better, less cough No chest pain No fevers or chills No other new symptoms Review of Systems Review of Systems: all noted and negative except for above Physical Exam Physical Exam: General- oriented x 3, not in distress, speaks in sentences with no effort or accessory muscle use Eyes- anicteric Neck- no JVD Lungs- very mild wheeze BL no crackles Heart- normal rate, regular rhythm; no murmurs Abdomen- normal bowel sounds, nondistended, soft, nontender Extremities- no pretibial edema, no calf tenderness Neuro- alert, oriented x 3; no gross focal neurologic deficits Skin- warm & dry Results & Data Results & Data Vital Signs (Past 12 Hours) Vital Signs Temp Pulse Pulse Resp BP Pulse Ox O2 Del Method 10/03/24 19:35 72 18 92 Room Air 10/03/24 16:30 36.5 C 67 20 145/77 H 94 Room Air 10/03/24 15:19 93 H 10/03/24 14:41 84 17 93 Room Air 10/03/24 11:57 36.6 C 84 16 135/56 L 93 Room Air 10/03/24 09:49 Room Air 10/03/24 08:14 36.5 C 90 16 129/77 97 Nebulizer FiO2 10/03/24 19:35 10/03/24 16:30 10/03/24 15:19 10/03/24 14:41 21 10/03/24 11:57 10/03/24 09:49 10/03/24 08:14 all noted and reviewed including below (1) Fracture, tibial plateau Encounter type: initial encounter Fracture type: closed Laterality: right Qualified Code(s): S82.141A - Displaced bicondylar fracture of right tibia, initial encounter for closed fracture (2) Fracture of proximal end of humerus Encounter type: initial encounter Fracture alignment: nondisplaced Fracture morphology: other fracture Fracture type: closed Laterality: right Qualified Code(s): S42.294A - Other nondisplaced fracture of upper end of right humerus, initial encounter for closed fracture
[2024-10-04 08:57] LABS: Anion Gap 7.0 (3-11); Blood Urea Nitrogen 17.0 mg/dl (6-23); Calcium 9.5 mg/dl (8.6-10.3); Carbon Dioxide 33.0 mmol/L (21-32); Chloride 100.0 mmol/L (98-107); Creatinine Clr Calc Pharmacy 139.2 ml/min; Glucose 122.0 mg/dl (70-99(Fasting)); Potassium 3.3 mmol/L (3.5-5.1); Sodium 140.0 mmol/L (136-145)
[2024-10-04] MEDS: POTASSIUM CHLORIDE 10 MEQ TABCR PO STA (11:44)
[2024-10-04] MEDS ORDERED: MAGNESIUM HYDROXIDE SUSP 30 ML UDC PO PRN (16:45)
--- NOTE | 2024-10-04 16:49 | Hospitalist Progress Note ---
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 #Mechanical Fall with likely age-related osteoporotic fractures as below #Right Tibial Plateau Fracture #Right Humeral Fracture #Ambulatory Dysfunction -patient with right tibial fracture, right humeral fracture 2/2 mechanical fall -hypotensive episode in ED with good recovery post morphine IV 4mg Appreciate Ortho input and recommendation for conservative management Pain control with IV tylenol and breakthrough oxycodone, would avoid IV medications if possible -PT/OT, right sided nonweightbearing per ortho, sling for right humerus placed in ED -likely needs SNF Start eliquis 2.5 PO bid for DVT prophylaxis per ortho recs Clinically better today with minimal symptoms at rest Denies any increasing pain, shortness of breath at rest or any nausea no vomiting Pain is not well-controlled especially swelling of the right knee is noted with extreme pain with movement of the right knee joint and right lower extremity Will ask orthopedics to reevaluate Right knee is much better today and the pain is reasonably controlled Pain is reasonably controlled and has been getting physical therapy and will require rehab placement Has been having more pain today even complains to have pain with coughing and sneezing to the right shoulder Right knee pain seems to be reasonably stable Has had PT evaluation and recommended acute rehab 10/01 Repeat x-rays of the right shoulder, humerus, knee: Stable fractures Will request orthopedic service to evaluate x-rays and obtain further recommendations re: conservative measures versus surgical intervention 10/04 continue conservative management, supportive care per Ortho #Acute bronchitis, Parainfluenza Complaining cough with wheezing mostly anterior chest with minimal phlegm Chest x-ray is not showing any CHF and no pneumonia Started with Ceftin 500 mg twice daily Has been getting inhalers as needed and feeling better 09/30 (+) wheezing nebs q6h ordered Mucinex, IS, Flutter valve continue Cefuroxime BID 10/01 patient with persistent wheezing Fortunately remains on room air Start prednisone 40 mg p.o. daily Nebs every 6 hours, Mucinex, incentive spirometry, flutter valve Continue cefuroxime twice daily 10/02 on room air breathing improving but still having some wheezing Prednisone 40mg daily add Budesonide, Hypertonic saline continue Nebs q6h continue Cefuroxime BID ff up sputum culture 10/04 improving, less wheezing Continue prednisone 20 mg daily Continue nebs Continue Cefuroxime day 7 sputum culture negative so far #MANDA -home CPAP ordered Minimal wheezing and cough she will be given albuterol inhaler also cough suppressants #DM Type 2 -only on farxiga at home -SSI ordered -continue protonix #HTN -continue lisinopril PT recommended acute rehab Disposition anticipate transition to SNF tomorrow Admission and Anticipated Discharge Date Admission Date: September 24, 2024 Subjective seen resting in bed, in good spirits states she feels better today overall breathing continues to improve less cough pain well controlled no other symptoms Review of Systems Review of Systems: all noted and negative except for above Physical Exam Physical Exam: General- oriented x 3, not in distress, speaks in sentences with no effort or accessory muscle use Eyes- anicteric Neck- no JVD Lungs- very faint wheeze, bl no crackles Heart- normal rate, regular rhythm; no murmurs Abdomen- normal bowel sounds, nondistended, soft, nontender Extremities- no pretibial edema, no calf tenderness Neuro- alert, oriented x 3; no gross focal neurologic deficits Skin- warm & dry Results & Data Results & Data Vital Signs (Past 12 Hours) Vital Signs Temp Pulse Pulse Resp BP Pulse Ox O2 Del Method 10/04/24 16:04 36.5 C 73 18 110/70 93 Room Air 10/04/24 14:57 80 10/04/24 13:08 78 17 98 Room Air 10/04/24 12:08 Room Air 10/04/24 11:12 36.7 C 85 14 173/81 H 94 Room Air 10/04/24 08:01 36.4 C L 83 14 167/85 H 93 Room Air 10/04/24 08:01 57 L 10/04/24 07:23 65 15 98 Room Air FiO2 10/04/24 16:04 10/04/24 14:57 10/04/24 13:08 21 10/04/24 12:08 10/04/24 11:12 10/04/24 08:01 10/04/24 08:01 10/04/24 07:23 21 all noted and reviewed including below (1) Fracture, tibial plateau Encounter type: initial encounter Fracture type: closed Laterality: right Qualified Code(s): S82.141A - Displaced bicondylar fracture of right tibia, initial encounter for closed fracture (2) Fracture of proximal end of humerus Encounter type: initial encounter Fracture alignment: nondisplaced Fracture morphology: other fracture Fracture type: closed Laterality: right Qualified Code(s): S42.294A - Other nondisplaced fracture of upper end of right humerus, initial encounter for closed fracture
[2024-10-04] MEDS: predniSONE 20 MG TAB PO STA (16:59)
[2024-10-05] MEDS: POLYETHYLENE (MIRALAX) 17 GM PACK PO SCH (09:26)
[2024-10-05] MEDS: POTASSIUM CHLORIDE 10 MEQ TABCR PO SCH (09:27)
--- NOTE | 2024-10-05 10:44 | Hospitalist Progress Note ---
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 #Mechanical Fall with likely age-related osteoporotic fractures as below #Right Tibial Plateau Fracture #Right Humeral Fracture #Ambulatory Dysfunction -patient with right tibial fracture, right humeral fracture 2/2 mechanical fall -hypotensive episode in ED with good recovery post morphine IV 4mg Appreciate Ortho input and recommendation for conservative management Pain control with IV tylenol and breakthrough oxycodone, would avoid IV medications if possible -PT/OT, right sided nonweightbearing per ortho, sling for right humerus placed in ED -likely needs SNF Start eliquis 2.5 PO bid for DVT prophylaxis per ortho recs Clinically better today with minimal symptoms at rest Denies any increasing pain, shortness of breath at rest or any nausea no vomiting Pain is not well-controlled especially swelling of the right knee is noted with extreme pain with movement of the right knee joint and right lower extremity Will ask orthopedics to reevaluate Right knee is much better today and the pain is reasonably controlled Pain is reasonably controlled and has been getting physical therapy and will require rehab placement Has been having more pain today even complains to have pain with coughing and sneezing to the right shoulder Right knee pain seems to be reasonably stable Has had PT evaluation and recommended acute rehab 10/05 Repeat x-rays of the right shoulder, humerus, knee: Stable fractures Reevaluated by orthopedic service, Ortho service recommendations: Plan remains to pursue conservative management, including nonweightbearing of right arm and right lower extremity "Sling on right upper extremity No weightbearing with the right upper extremity Patient may come out of the sling to work on range of motion of her elbow hand wrist and fingers Ice with easy wrap Patient will need to follow-up in our office in approximately 1 week for set of x-rays of her right shoulder " "Nonweightbearing on Right lower extremity for the next 4 to 6 weeks. No knee immobilizer brace is needed. Range of motion should be encouraged of her right knee so she does not get too stiff. Follow-up with [facility] orthopedics in 1 week for x-rays of the right knee SCDs and teds were ordered Patient is on Eliquis for DVT prophylaxis wheelchair for transportation. She should be safe to transfer from her bed to a chair with assistance so long as she is not using her right arm to support herself. Patient will need to be discharged to a halfway facility for rehab. Patient states she has discussed this with case management and would like to go to [facility]. Once she is medically stable she will be discharged there for rehab and halfway care. Follow-up at [facility] orthopedics With questions contact our clinic at [phone]" Continue Eliquis x 4 to 6 weeks while patient is sedentary, immobile, secondary to fractures #Acute bronchitis, Parainfluenza 10/05 Patient presented with cough, congestion Respiratory panel revealed positive parainfluenza virus Sputum culture negative Chest x-ray: No pneumonia She was noted to be having bilateral wheezing she completed a 1 week course of cefuroxime and also given prednisone 40 mg daily x 3 days, then prednisone 20 mg 1 dose Also given nebulization treatment including Pulmicort, hypertonic saline, levalbuterol, ipratropium on the day of discharge, patient feels much better, on room air, wheezing resolved Please continue to encourage using incentive spirometry, and probiotics x 1 week #MANDA -home CPAP ordered #DM Type 2 -only on farxiga at home -SSI ordered -continue protonix #HTN -continue lisinopril an amlodipine - monitor blood pressure closely Disposition PT OT recommending to continue therapy transition to halfway facility today Please follow-up with orthopedic surgeon Dr. Eduardo Langston in 1 week plan of care discussed with patient and her in detail and at length all questions answered they are understanding, agreeable, comfortable with the plan of care Admission and Anticipated Discharge Date Admission Date: September 24, 2024 Subjective seen resting in bed, sitting up, in good spirits On room air Patient's Bill at the bedside visiting States she feels much better today Breathing is much better, less cough No chest pain, palpitations, dizziness, nausea No BM yet, but no abdominal pain, positive flatus Tolerating diet well States she is ready for discharge today Review of Systems Review of Systems: all noted and negative except for above Physical Exam Physical Exam: General- oriented x 3, not in distress, speaks in sentences with no effort or accessory muscle use Eyes- anicteric Neck- no JVD Lungs- clear breath sounds bilaterally, no rales/wheezes Heart- normal rate, regular rhythm; no murmurs Abdomen- normal bowel sounds, nondistended, soft, nontender Extremities- no pretibial edema, no calf tenderness Right arm: Positive sling in place, no hand edema Neuro- alert, oriented x 3; no gross focal neurologic deficits Skin- warm & dry Results & Data Results & Data Vital Signs (Past 12 Hours) Vital Signs Temp Pulse Pulse Resp BP Pulse Ox O2 Del Method 10/05/24 08:04 36.6 C 66 18 151/79 H 97 Nasal Cannula 10/05/24 07:27 57 L 10/05/24 07:13 65 18 94 Room Air 10/05/24 03:14 36.5 C 59 L 18 159/77 H 93 Room Air 10/05/24 00:46 67 18 94 Room Air 10/04/24 23:12 36.6 C 69 18 161/52 H 91 Room Air O2 Flow Rate 10/05/24 08:04 2 10/05/24 07:27 10/05/24 07:13 10/05/24 03:14 10/05/24 00:46 10/04/24 23:12 all noted and reviewed including below (1) Fracture, tibial plateau Encounter type: initial encounter Fracture type: closed Laterality: right Qualified Code(s): S82.141A - Displaced bicondylar fracture of right tibia, initial encounter for closed fracture (2) Fracture of proximal end of humerus Encounter type: initial encounter Fracture alignment: nondisplaced Fracture morphology: other fracture Fracture type: closed Laterality: right Qualified Code(s): S42.294A - Other nondisplaced fracture of upper end of right humerus, initial encounter for closed fracture
[2024-10-05 10:51] LABS: Anion Gap 9.0 (3-11); Blood Urea Nitrogen 16.0 mg/dl (6-23); Calcium 9.7 mg/dl (8.6-10.3); Carbon Dioxide 32.0 mmol/L (21-32); Chloride 99.0 mmol/L (98-107); Creatinine Clr Calc Pharmacy 141.5 ml/min; Glucose 160.0 mg/dl (70-99(Fasting)); Potassium 3.4 mmol/L (3.5-5.1); Sodium 140.0 mmol/L (136-145)
[2024-10-05 11:03] VITALS: BP 155/68; PULSE 95; RESP 20; TEMP 97.3; O2SAT 91
--- NOTE | 2024-10-05 11:14 | Discharge Summary ---
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 #Mechanical Fall with likely age-related osteoporotic fractures as below #Right Tibial Plateau Fracture #Right Humeral Fracture #Ambulatory Dysfunction -patient with right tibial fracture, right humeral fracture 2/ mechanical fall -hypotensive episode in ED with good recovery post morphine IV 4mg Appreciate Ortho input and recommendation for conservative management 10/05 Repeat x-rays of the right shoulder, humerus, knee 10/01: Stable fractures Reevaluated by orthopedic service, Ortho service recommendations: Plan remains to pursue conservative management, including nonweightbearing of right arm and right lower extremity "Sling on right upper extremity No weightbearing with the right upper extremity Patient may come out of the sling to work on range of motion of her elbow hand wrist and fingers Ice with easy wrap Patient will need to follow-up in our office in approximately 1 week for set of x-rays of her right shoulder " "Nonweightbearing on Right lower extremity for the next 4 to 6 weeks. No knee immobilizer brace is needed. Range of motion should be encouraged of her right knee so she does not get too stiff. Follow-up with [facility] orthopedics in 1 week for x-rays of the right knee SCDs and teds were ordered Patient is on Eliquis for DVT prophylaxis wheelchair for transportation. She should be safe to transfer from her bed to a chair with assistance so long as she is not using her right arm to support herself. Patient will need to be discharged to a half-way facility for rehab. Patient states she has discussed this with case management and would like to go to [facility]. Once she is medically stable she will be discharged there for rehab and half-way care. Follow-up at [facility] orthopedics With questions contact our clinic at [phone]" Continue Eliquis x 4 to 6 weeks while patient is sedentary, immobile, secondary to fractures #Acute bronchitis, Parainfluenza 10/05 Patient presented with cough, congestion Respiratory panel revealed positive parainfluenza virus Sputum culture negative Chest x-ray: No pneumonia She was noted to be having bilateral wheezing she completed a 1 week course of cefuroxime and also given prednisone 40 mg daily x 3 days, then prednisone 20 mg 1 dose Also given nebulization treatment including Pulmicort, hypertonic saline, levalbuterol, ipratropium on the day of discharge, patient feels much better, on room air, wheezing resolved Please continue to encourage using incentive spirometry, and probiotics x 1 week #mild hypokalemia continue potassium supplement Recheck potassium level in 2 to 3 days #Constipation Required enema Discharged on Senokot as daily and as needed lactulose Monitor closely #MANDA -home CPAP ordered #DM Type 2 -only on farxiga at home -SSI ordered -continue protonix #HTN -continue lisinopril an amlodipine - monitor blood pressure closely Disposition PT OT recommending to continue therapy transition to half-way facility today Please follow-up with orthopedic surgeon Dr. Eduardo Langston in 1 week plan of care discussed with patient and her in detail and at length all questions answered they are understanding, agreeable, comfortable with the plan of care Notes For Next Care Provider Medication Changes From Visit Please refer to medical reconciliation sheet Admission HPI Per Admitting Provider 73 yo female with pmhx of hx of DCIS of left breast, class III obesity, MANDA on CPAP, DM Type 2, HTN, HLD who presents for fall. Last admission was in 2023 for EGD and colonoscopy. In the ED, noted to have right knee and right arm fractures, ortho consulted, recommended PT/OT and pain control, admitted to medicine for further workup. Had hypotensive episode in ED to 4mg IV morphine. Patient seen and examined at bedside. Patient doing ok today. States her right knee and right arm hurt significantly. States she was walking to the bathroom, fell on her right side hitting her arm against the wall in the process. States it was a mechanicall fall, no LOC, no prodrome or other symptoms. Denies chest pain, SOB. States she falls occasionally when her feet give out on her. No tobacco use, no drug use, no alcohol use, DNRDNI discussed with patient and family. Admission Exam Per Admitting Provider Gen: A&O NAD, class III obesity HEENT: NCAT, EOMI, not icteric. External ears normal. No rhinorrhea. Moist mucous membranes. Neck: Supple, full range of motion, no observable masses, No meningeal sign. Lungs: No Respiratory distress. CV: RRR, no edema. Abdomen: Soft, nondistended, No rebound tenderness. MSK: tenderness/swelling of right knee, worst around joint line, right arm tenderness worst on right shoulder Skin: No rashes, petechiae, lesions. Normal color per patient. Neuro: Normal Gait, Grossly intact. Psych: Appropriate for situation. Discharge Exam General- oriented x 3, not in distress, speaks in sentences with no effort or accessory muscle use Eyes- anicteric Neck- no JVD Lungs- clear breath sounds bilaterally, no rales/wheezes Heart- normal rate, regular rhythm; no murmurs Abdomen- normal bowel sounds, nondistended, soft, nontender Extremities- no pretibial edema, no calf tenderness Right arm: Positive sling in place, no hand edema Neuro- alert, oriented x 3; no gross focal neurologic deficits Skin- warm & dry Updated Medication List Medication Instructions Recorded Confirmed Type cholecalciferol (vitamin D3) 25 1,000 units PO QAM 09/29/19 09/24/24 History mcg (1,000 unit) capsule nystatin 100,000 unit/gram topical 1 appln topical UD PRN Rash 09/29/19 09/24/24 History cream CPAP Supplies #1 ea 11/04/19 06/15/24 Rx Lactobacillus acidoph-L.bulgaricus 1 tab PO DAILY #10 tabs 10/05/24 Rx 1 million cell tablet (Floranex) acetaminophen 500 mg tablet 1,000 mg (2 x 500 mg) PO Q8H PRN 10/05/24 Rx (Tylenol Extra Strength) pain #20 tabs amlodipine 10 mg tablet (Norvasc) 10 mg PO QAM #30 tabs 10/05/24 Rx apixaban 2.5 mg tablet (Eliquis) 2.5 mg PO BID 35 days #70 tabs 10/05/24 Rx cetirizine 10 mg tablet (Allergy 10 mg PO QAM #30 tabs 10/05/24 Rx Relief (cetirizine)) dapagliflozin propanediol 10 mg 0 mg (0 x 10 mg) PO DAILY #30 tabs 10/05/24 Rx tablet (Farxiga) ipratropium bromide 0.02 % 0.5 mg (2.5 mL) NEB Q4H PRN 10/05/24 Rx solution for inhalation sob/wheeze #25 mL lactulose 20 gram oral packet 30 g PO DAILY PRN constipation #15 10/05/24 Rx ea levalbuterol HCl 1.25 mg/3 mL 1.25 mg (3 mL) NEB Q4H PRN 10/05/24 Rx solution for nebulization sob/wheeze #30 mL lisinopril 10 mg tablet (Zestril) 10 mg PO QAM #30 tabs 10/05/24 Rx oxycodone 5 mg tablet 5 mg PO Q4H PRN severe pain #10 10/05/24 Rx tabs pantoprazole 40 mg tablet,delayed 40 mg PO DAILY #30 tabs 10/05/24 Rx release peg 400-propylene glycol (PF) 0.4 1 drp ophthalmic (eye) QAM #1 ea 10/05/24 Rx %-0.3 % eye drops in a dropperette (Systane (PF)) potassium chloride 10 mEq 40 meq (4 x 10 mEq) PO DAILY 7 10/05/24 Rx tablet,extended release days #28 tabs rosuvastatin 5 mg tablet (Crestor) 5 mg PO QAM #30 tabs 10/05/24 Rx sennosides 8.6 mg-docusate sodium 1 tab-cap PO DAILY #30 tabs 10/05/24 Rx 50 mg tablet (Senokot-S) Hospital Stay Data Consultations 09/24/24 14:23 ED Decision to Admit Stat Diagnostic Imagining Performed Laboratory Results WBC 5.45 K/ul (4.8-10.8) 10/01/24 08:41 RBC 4.48 M/uL (4.20-5.40) 10/01/24 08:41 Hgb 13.6 g/dl (12.0-16.0) 10/01/24 08:41 Hct 40.5 % (37.0-47.0) 10/01/24 08:41 MCV 90.4 fL (80.0-100.0) 10/01/24 08:41 MCH 30.4 pg (25.0-34.0) 10/01/24 08:41 MCHC 33.6 g/dL (32.0-36.0) 10/01/24 08:41 RDW Std Deviation 43.1 fL (36.4-46.3) 10/01/24 08:41 RDW Coeff of Ramos 13.0 % (11.5-14.5) 10/01/24 08:41 Plt Count 236 K/uL (130-400) 10/01/24 08:41 MPV 9.1 fL (9.4-12.4) L 10/01/24 08:41 Immature Gran % (Auto) 0.4 % 10/01/24 08:41 Neut % (Auto) 68.6 % 10/01/24 08:41 Lymph % (Auto) 22.8 % 10/01/24 08:41 [place] % (Auto) 5.9 % 10/01/24 08:41 Eos % (Auto) 1.7 % 10/01/24 08:41 Baso % (Auto) 0.6 % 10/01/24 08:41 Neut # (Auto) 3.75 K/uL (1.40-6.50) 10/01/24 08:41 Lymph # (Auto) 1.24 K/uL (1.20-3.40) 10/01/24 08:41 [place] # (Auto) 0.32 K/uL (0.11-0.59) 10/01/24 08:41 Eos # (Auto) 0.09 K/uL (0.00-0.50) 10/01/24 08:41 Baso # (Auto) 0.03 K/uL (0.00-0.20) 10/01/24 08:41 Immature Gran # (Auto) 0.02 K/uL (0.01-0.20) 10/01/24 08:41 Sodium 140 mmol/L (136-145) 10/05/24 09:40 Potassium 3.4 mmol/L (3.5-5.1) L 10/05/24 09:40 Chloride 99 mmol/L (98-107) 10/05/24 09:40 Carbon Dioxide 32 mmol/L (21-32) 10/05/24 09:40 Anion Gap 9 (3-11) 10/05/24 09:40 BUN 16 mg/dl (6-23) 10/05/24 09:40 Creatinine 0.44 mg/dl (0.6-1.2) L 10/05/24 09:40 Est Cr Clr Drug Dosing 141.5 ml/min 10/05/24 09:40 eGFR 102.71 10/05/24 09:40 BUN/Creatinine Ratio 36.4 (10-20) H 10/05/24 09:40 Glucose 160 mg/dl (70-99(Fasting)) H 10/05/24 09:40 POC Glucose 124 mg/dl (70-99) H 10/05/24 07:49 Calcium 9.7 mg/dl (8.6-10.3) 10/05/24 09:40 Magnesium 1.9 mg/dl (1.7-2.4) 10/04/24 08:15 Total Bilirubin 0.9 mg/dl (0.2-1.0) 10/01/24 08:41 AST 21 U/L (13-39) 10/01/24 08:41 ALT 15 U/L (7-52) 10/01/24 08:41 Alkaline Phosphatase 92 U/L (34-104) 10/01/24 08:41 Total Protein 6.9 gm/dl (6.0-8.3) 10/01/24 08:41 Albumin 3.8 gm/dl (3.4-5.0) 10/01/24 08:41 Globulin 3.1 gm/dl (2.5-4.0) 10/01/24 08:41 Albumin/Globulin Ratio 1.2 (0.9-2) 10/01/24 08:41 TSH 2.063 uIu/ml (0.300-4.500) 09/28/24 19:45 Adenovirus (PCR) Not Detected (NotDetected) 09/28/24 19:45 B. pertussis DNA (PCR) Not Detected (NotDetected) 09/28/24 19:45 B.parapertussis DNA PCR Not Detected (NotDetected) 09/28/24 19:45 C. pneumoniae DNA (PCR) Not Detected (NotDetected) 09/28/24 19:45 Coronavirus OC43 (PCR) Not Detected (NotDetected) 09/28/24 19:45 Coronavirus HKU1 (PCR) Not Detected (NotDetected) 09/28/24 19:45 Coronavirus 229E (PCR) Not Detected (NotDetected) 09/28/24 19:45 SARS-CoV-2 (PCR) Not Detected (NotDetected) 09/28/24 19:45 Coronavirus NL63 (PCR) Not Detected (NotDetected) 09/28/24 19:45 Human Metapneumovir PCR Not Detected (NotDetected) 09/28/24 19:45 Influenza Type A (PCR) Not Detected (NotDetected) 09/28/24 19:45 Influenza Type B (PCR) Not Detected (NotDetected) 09/28/24 19:45 M. pneumoniae (PCR) Not Detected (NotDetected) 09/28/24 19:45 Parainfluenza 1 (PCR) Not Detected (NotDetected) 09/28/24 19:45 Parainfluenza 2 (PCR) Not Detected (NotDetected) 09/28/24 19:45 Parainfluenza 3 (PCR) DETECTED (NotDetected) A 09/28/24 19:45 Parainfluenza 4 (PCR) Not Detected (NotDetected) 09/28/24 19:45 RSV (PCR) Not Detected (NotDetected) 09/28/24 19:45 Entero/Rhino (PCR) Not Detected (NotDetected) 09/28/24 19:[address] 09/24/24 11:07 CT SCAN OF THE RIGHT KNEE WITHOUT IV CONTRAST CLINICAL HISTORY: Right knee injury. Abnormal x-ray. COMPARISON STUDY: Right knee x-rays dated 09/24/2024. TECHNIQUE: CT scan of the right knee is performed from the distal femur to the proximal tibia and fibula. Images are reviewed in the axial, sagittal, and coronal planes. IV contrast was not administered for this examination. A dose lowering technique was utilized adhering to the principles of ALARA. CT DOSE: 533.6 mGy.cm FINDINGS: The skeletal structures are osteopenic. There is a moderate to large joint effusion with lipohemarthrosis indicating acute fracture. There is a subtle impacted fracture along the anterior cortex of the lateral tibial plateau. This is best seen on coronal image #43 and sagittal image #37. There is only minimal depression at this site. The medial tibial plateau is intact. The distal femur, proximal fibula, and patella are maintained. There is moderate degenerative narrowing in the medial compartment. Mild narrowing is seen in the lateral compartment. There is generalized atrophy of the regional musculature. IMPRESSION: 1. There is a large joint effusion with lipohemarthrosis indicating acute fracture. 2. There is a subtle impacted fracture along the anterior aspect of the lateral tibial plateau. 3. No additional acute fracture is seen. 4. Osteopenia and degenerative change as above. ACT 112: Negative or not required by law. Electronically signed by: Nahid Petit M.D. 09/24/2024 11:51 AM Chest X-Ray 09/30/24 17:05 Chest radiograph, one view History: Wheezing Comparison: None Findings: Single AP view of the chest performed. No focal consolidation or pleural effusion. No pneumothorax. The cardiomediastinal silhouette is within normal limits. Normal pulmonary vascularity. No evidence for lymphadenopathy. No visualized bony or soft tissue abnormality. Impression: Normal chest radiograph Electronically signed by Scooby Grewal 09-30-2024 6:05 PM Humerus X-Ray 10/01/24 08:44 XR humerus RT 2V CLINICAL HISTORY: ff up fracture COMPARISON: 10/01/2024 FINDINGS: Comminuted minimally displaced fracture proximal right humerus has stable alignment. IMPRESSION: Stable alignment. ACT 112: Negative or not required by law. Electronically signed by: Elver Wiley M.D. 10/01/2024 10:33 AM Knee X-Ray 10/01/24 08:44 XR knee RT 1 or 2V routine CLINICAL HISTORY: ff up fracture COMPARISON: 09/24/2024 FINDINGS: Lateral tibial plateau fracture remains nondisplaced. There is a mild joint effusion, improved. Stable osteoarthritis. IMPRESSION: Stable alignment. ACT 112: Negative or not required by law. Electronically signed by: Elver Wiley M.D. 10/01/2024 10:32 AM Shoulder X-Ray 10/01/24 08:44 XR shoulder RT min 2V routine CLINICAL HISTORY: ff up fracture COMPARISON: 09/24/2024 FINDINGS: Comminuted minimally displaced fracture proximal right humerus has stable alignment. IMPRESSION: Stable alignment. ACT 112: Negative or not required by law. Electronically signed by: Elver Wiley M.D. 10/01/2024 10:32 AM KUB X-Ray 10/01/24 08:46 KUB HISTORY: constipation COMPARISON STUDY: 06/11/2024 FINDINGS: There is moderate retained stool. No bowel obstruction seen. No gross free air. IMPRESSION: Moderate retained stool. ACT 112: Negative or not required by law. The above report was generated using voice recognition software. It may contain grammatical, syntax or spelling errors. Electronically signed by: Elver Wiley M.D. 10/01/2024 10:33 AM Pending Results Patient Have Any Pending Studies at Discharge: Yes Discharge Instructions Given to Patient (Per Discharging Provider) please refer to accompanying hospital discharge summary for full details. Total Time Total Time Spent Total Time Spent (In Minutes): 50 minutes
== END 2024-10-05 11:45 | DRG 543 ==
LOC: ED 09:03 → EDINP 11:54 → SUATTDRO 11:54 → 2W 16:17